=== PATIENT | female | born 1945 | race Caucasian/White ===

== ENCOUNTER → 2018-04-21 08:07 | Outpatient (CLI) | payer MEDICARE, OTHER, SELFPAY ==
--- NOTE | 2018-04-21 08:33 | BI_ITS ---
MAMMOGRAPHY - BILATERAL SCREENING REASON FOR EXAM: Female, 72 years old. Routine annual screening examination. PERTINENT HISTORY: Non-contributory. TECHNIQUE: Digital bilateral breast chad (3D mammographic acquisition) in the CC and MLO projections. 2-D mediolateral oblique (MLO) and craniocaudad (CC) views of both breasts were obtained. CAD: Full Field Digital Mammography with Computer Added Detection was performed. COMPARISON: Comparison is made with prior study dated November 01, 2016 and October 25, 2015. FINDINGS: Breast Composition: There are scattered areas of fibroglandular density. There are no dominant masses or suspicious calcifications. Stable 8 mm x 7 mm well-defined nodule in the mid lateral portion of the left breast. No other significant abnormalities are identified. There has been no significant change since the prior study. BI/SCREENING MAMM (CAD), BILAT IMPRESSION: Stable bilateral screening mammogram. Yearly follow-up mammogram recommended. (A) ASSESSMENT CATEGORY: BIRADS Category 2: Benign. A letter regarding these results will be sent to the patient by the facility within 30 days. Approximately 10% of breast cancers are not detected by mammography. A normal mammogram should not delay biopsy of a clinically suspicious abnormality. [id number] Electronically Signed: Ru Ge MD at 10:07 EDT Tel [phone], Service support ,
== END ==
PROVIDERS: Family Provider Internal Medicine; PCP Internal Medicine; Visit Provider Internal Medicine
DX: Z12.31 Encounter for screening mammogram for malignant neoplasm of breast (principal)
CPT/HCPCS: 77063; 77067

== ENCOUNTER → 2019-08-18 11:48 | Outpatient (CLI) | payer MEDICARE, OTHER, SELFPAY ==
--- NOTE | 2019-08-18 11:51 | BI_ITS ---
MAMMOGRAPHY - BILATERAL SCREENING REASON FOR EXAM: Female, 73 years old. Routine annual screening examination. PERTINENT HISTORY: Non-contributory. TECHNIQUE: Digital bilateral breast kika (3D mammographic acquisition) in the CC and MLO projections. 2-D mediolateral oblique (MLO) and craniocaudad (CC) views of both breasts were obtained. CAD: Full Field Digital Mammography with Computer Added Detection was performed. COMPARISON: Comparison is made with prior study dated April 21, 2018 and November 01, 2016. FINDINGS: Breast Composition: There are scattered areas of fibroglandular density. There are no dominant masses or suspicious calcifications. Stable 8 mm x 7 mm well-defined nodule in the upper lateral portion of the left breast. Stable benign-appearing bilateral axillary lymph nodes. No other significant abnormalities are identified. There has been no significant change since the prior study. BI/SCREEN MAMM (CAD) W/KIKA BILAT IMPRESSION: Stable bilateral screening mammogram. Yearly follow-up mammogram recommended. (A) ASSESSMENT CATEGORY: BIRADS Category 2: Benign. A letter regarding these results will be sent to the patient by the facility within 30 days. Approximately 10% of breast cancers are not detected by mammography. A normal mammogram should not delay biopsy of a clinically suspicious abnormality. [id number] Electronically Signed: Ru Ge, at 13:15 EST , Service support ,
--- NOTE | 2019-08-18 12:11 | BD_ITS ---
STUDY: DUAL ENERGY X-RAY ABSORPTIOMETRY / DXA REASON FOR EXAM: Female, 73 years old. 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 COMPARISON: Comparison is made with prior study dated November 01, 2016. FINDINGS: Lumbar Spine (L1-L4): g/cm2 (1.042) / T-score (-1.3) / Z-score (0.4) Findings are suggestive of osteopenia with a low fracture risk. Left Femur Total: g/cm2 (0.923) / T-score (-0.7) / Z-score (0.9) Left Femoral Neck: g/cm2 (0.941) / T-score (-0.7) / Z-score (1.1) Right Femur Total: g/cm2 (0.977) / T-score (-0.2) / Z-score (1.3) Right Femoral Neck: g/cm2 (0.904) / T-score (-1.0) / Z-score (0.8) The T-Scores on the most recent prior examination were: Lumbar Spine (L1-L4): There has been worsening of bone density since the previous examination. Left Femur Total: which represents a worsening of 5.1%. Right Femur Total: which represents a worsening of 3.9%. BD/Dexa Bone Density Study IMPRESSION: The patient is considered osteopenic as outlined below according to World Hunter Organization (WHO) criteria with a low fracture risk. There has been worsening of bone density since the previous examination. Reference Information: The T-score is the number of standard deviations above or below the standard which is normal for young adults at their peak bone mineral density. The World Health Organization (WHO) interprets the T-scores as follows: Above -1 Normal bone density Between -1 and -2.5 Osteopenia Equal to / or below -2.5 Osteoporosis As a practical clinical guideline, osteopenia may be graded as follows: Mild -1 through -1.5 Moderate -1.6 through -2.0 Severe -2.1 through -2.4 The Z-score is the number of standard deviations above or below age-matched controls. A Z-score of less than -1.5 would be considered abnormal. References: 1. NIH Osteoporosis and Related Bone Diseases http://www.osteo.org 2. International Society for Clinical Densitometry http://www.iscd.org 3. National Osteoporosis Foundation http://www.nof.org Electronically Signed: Ru Ge, at 15:35 EST , Service support ,
== END ==
PROVIDERS: Family Provider Internal Medicine; PCP Internal Medicine; Referring Provider Internal Medicine; Visit Provider Internal Medicine
DX: Z12.31 Encounter for screening mammogram for malignant neoplasm of breast (principal); Z78.0 Asymptomatic menopausal state
CPT/HCPCS: 77063; 77067; 77080

== ENCOUNTER → 2021-01-10 07:56 | Outpatient (CLI) | payer MEDICARE, OTHER, SELFPAY ==
--- NOTE | 2021-01-10 08:00 | BI_ITS ---
MAMMOGRAPHY - BILATERAL SCREENING REASON FOR EXAM: Female, 75 years old. Routine annual screening examination. PERTINENT HISTORY: Non-contributory. TECHNIQUE: Digital bilateral breast kika (3D mammographic acquisition) in the CC and MLO projections. 2-D mediolateral oblique (MLO) and craniocaudad (CC) views of both breasts were obtained. CAD: Full Field Digital Mammography with Computer Added Detection was performed. COMPARISON: Comparison is made with prior study dated 02/16/2020 and 04/21/2018. FINDINGS: Breast Composition: There are scattered areas of fibroglandular density. There are no dominant masses or suspicious calcifications. On the mediolateral oblique view, there is a 8.7 mm nodular density which is not seen on the craniocaudad view. The patient will be recalled for additional views of the left breast including 90 degree lateral and possible compression spot views. Stable appearance of the bilateral axillary lymph nodes. No other significant abnormalities are identified. BI/SCRN MAMM (CAD)W/KIKA BILAT IMPRESSION: 8.7 mm nodular density seen in the central portion of the left breast on the mediolateral oblique views. The patient will be recalled for additional views including 90 degree lateral and possible compression spot views. Recall Side: Left Breast ASSESSMENT CATEGORY: BIRADS Category 0: Incomplete. Need additional imaging evaluation. A letter regarding these results will be sent to the patient by the facility within 30 days. Approximately 10% of breast cancers are not detected by mammography. A normal mammogram should not delay biopsy of a clinically suspicious abnormality. [id number] Electronically Signed: Ru Ge MD at 8:47 EDT , Service support ,
== END ==
PROVIDERS: PCP Internal Medicine; Referring Provider Internal Medicine; Visit Provider Internal Medicine
DX: Z12.31 Encounter for screening mammogram for malignant neoplasm of breast (principal)
CPT/HCPCS: 77063; 77067

== ENCOUNTER → 2021-01-11 09:17 | Outpatient (CLI) | payer MEDICARE, OTHER, SELFPAY ==
--- NOTE | 2021-01-11 09:20 | BI_ITS ---
MAMMOGRAPHY - UNILATERAL DIAGNOSTIC: LEFT BREAST REASON FOR EXAM: Female, 75 years old. Abnormal screening mammogram. PERTINENT HISTORY: Non-contributory. TECHNIQUE: A 90 degree lateral view of the left breast was obtained. CAD: Full Field Digital Mammography with Computer Added Detection was performed. COMPARISON: Comparison is made with prior study dated 01/10/2021. FINDINGS: Breast Composition: There are scattered areas of fibroglandular density. Persistent 9.2 mm nodule in the mid deep retroareolar region of the breast. Correlation with ultrasound is recommended. No other significant abnormalities are identified. BI/DIAG MAMM W/CAD, UNILAT IMPRESSION: Persistent density in the mid to deep aspect of the left breast as described. Correlation with ultrasound is recommended. ASSESSMENT CATEGORY: BIRADS Category 0: Incomplete. Need additional imaging evaluation. A letter regarding these results will be sent to the patient by the facility within 30 days. Approximately 10% of breast cancers are not detected by mammography. A normal mammogram should not delay biopsy of a clinically suspicious abnormality. Electronically Signed: Ru Ge MD at 10:05 EDT , Service support ,
--- NOTE | 2021-01-11 09:33 | US_ITS ---
STUDY: ULTRASOUND BREAST - LEFT REASON FOR EXAM: Female, 75 years old. Abnormal screening mammogram. TECHNIQUE: Axial and longitudinal images of the LEFT breast were performed with a high resolution ultrasound transducer. # OF IMAGES: 12 COMPARISON: Comparison is made with prior mammogram dated 01/11/2021 and 01/10/2021. Comparison is also made with the prior sonogram of the breast dated 08/18/2014. FINDINGS: LEFT Breast: There is an 8 mm x 6 mm x 3 mm well-defined hypoechoic nodule with central echogenic hilum in keeping with a small lymph node. This is seen at the 5 o''clock position breast at 3 cm from the. This is unchanged. US/Breast Limited Unilateral IMPRESSION: Stable examination demonstrating a 8 mm x 6 mm x 3 mm benign appearing lymph node. Routine mammographic follow-up is recommended. ASSESSMENT CATEGORY: BIRADS Category 2: Benign. A letter regarding these results will be sent to the patient by the facility within 30 days. Electronically Signed: Ru Ge MD at 10:08 EDT , Service support ,
== END ==
PROVIDERS: PCP Internal Medicine; Referring Provider Internal Medicine; Visit Provider Internal Medicine
DX: R92.8 Other abnormal and inconclusive findings on diagnostic imaging of breast (principal)
CPT/HCPCS: 76642; 77065

== ENCOUNTER → 2022-04-04 | Outpatient (CLI) | payer MEDICARE, OTHER, SELFPAY ==
--- NOTE | 2022-04-04 13:08 | RAD_ITS ---
STUDY: XR Knee Complete 4 Views or More 04/04/2022 4:52 PM REASON FOR EXAM: Female, 76 years old. PAIN TECHNIQUE: XR Knee Complete 4 Views or More LEFT COMPARISON: None FINDINGS: Normal visualized distal femur. Normal visualized proximal tibia and fibula. Normal proximal tibiofibular articulation. There is moderate degenerative arthrosis of the medial femorotibial compartment with moderate joint space narrowing. Normal lateral femorotibial compartment. There is mild degenerative arthrosis of the patellofemoral articulation. The soft tissue structures are unremarkable. RAD/Knee 4 or More Views IMPRESSION: Degenerative arthrosis. Electronically Signed: Dudley Paul MD at 16:53 EDT ,
--- NOTE | 2022-04-04 13:10 | RAD_ITS ---
STUDY: XR Knee Complete 4 Views or More 04/04/2022 4:49 PM REASON FOR EXAM: Female, 76 years old. PAIN TECHNIQUE: XR Knee Complete 4 Views or More RIGHT COMPARISON: None FINDINGS: Normal visualized distal femur. Normal visualized proximal tibia and fibula. Normal proximal tibiofibular articulation. There is moderate degenerative arthrosis of the medial femorotibial compartment with moderate joint space narrowing. There is mild degenerative arthrosis of the lateral femorotibial compartment. There is mild degenerative arthrosis of the patellofemoral articulation. There is a soft tissue prominence in the suprapatellar region suggesting a small volume joint effusion. The soft tissue structures are unremarkable. RAD/Knee 4 or More Views IMPRESSION: Degenerative arthrosis.Effusion, as described above. Electronically Signed: Dudley Paul MD at 16:50 EDT ,
== END | disposition home or self-care (01) ==
PROVIDERS: PCP Internal Medicine; Referring Provider Internal Medicine; Visit Provider Internal Medicine
DX: M25.561 Pain in right knee (principal); M25.562 Pain in left knee
CPT/HCPCS: 73564

== ENCOUNTER → 2022-06-13 | Outpatient (CLI) | payer MEDICARE, OTHER, SELFPAY ==
--- NOTE | 2022-06-13 10:58 | BI_ITS ---
MAMMOGRAPHY - BILATERAL SCREENING REASON FOR EXAM: Female, 76 years old. Routine annual screening examination. PERTINENT HISTORY: Non-contributory. TECHNIQUE: Digital bilateral breast kika (3D mammographic acquisition) in the CC and MLO projections. 2-D mediolateral oblique (MLO) and craniocaudad (CC) views of both breasts were obtained. CAD: Full Field Digital Mammography with Computer Added Detection was performed. COMPARISON: Comparison is made with prior study dated 01/10/2021 and 08/18/2019. FINDINGS: Breast Composition: There are scattered areas of fibroglandular density. There are no dominant masses or suspicious calcifications. Stable 9.2 mm well-defined nodule with a central fatty notch in the retroareolar region of the left breast. Prior sonogram demonstrated this to be a benign-appearing lymph node. Stable benign appearing lymph nodes are seen in the axillary regions. No other significant abnormalities are identified. There has been no significant change since the prior study. BI/SCRN MAMM (CAD)W/KIKA BILAT IMPRESSION: Stable bilateral screening mammogram. Yearly follow-up mammogram recommended. (A) ASSESSMENT CATEGORY: BIRADS Category 2: Benign. A letter regarding these results will be sent to the patient by the facility within 30 days. Approximately 10% of breast cancers are not detected by mammography. A normal mammogram should not delay biopsy of a clinically suspicious abnormality. [id number] Electronically Signed: Ru Ge MD at 12:23 EST ,
--- NOTE | 2022-06-13 11:03 | BD_ITS ---
STUDY: DUAL ENERGY X-RAY ABSORPTIOMETRY / DXA REASON FOR EXAM: Female, 76 years old. [id number] TECHNIQUE: Bone Mineral Density (BMD) measurements of lumbar spine and bilateral hips were obtained. COMPARISON: Comparison is made with prior study dated 08/18/2019. FINDINGS: Lumbar Spine (L1-L4): g/cm2 (0.924) / T-score (-1.1) / Z-score (1.2) Findings are suggestive of osteopenia with a low fracture risk. Left Femur Total: g/cm2 (0.908) / T-score (-0.3) / Z-score (1.5) Left Femoral Neck: g/cm2 (0.774) / T-score (-0.7) / Z-score (1.4) Right Femur Total: g/cm2 (0.935) / T-score (-0.1) / Z-score (1.7) Right Femoral Neck: g/cm2 (0.798) / T-score (-0.5) / Z-score (1.6) The T-Scores on the most recent prior examination were: Lumbar Spine (L1-L4): There has been improvement of bone density since the previous examination. Left Femur Total: which represents an improvement of 5.7%. Right Femur Total: which represents an improvement of 2.5%. BD/Dexa Bone Density Study IMPRESSION: The patient is considered osteopenic as outlined below according to World Hunter Organization (WHO) criteria with a low fracture risk. There has been improvement of bone density since the previous examination. Reference Information: The T-score is the number of standard deviations above or below the standard which is normal for young adults at their peak bone mineral density. The World Health Organization (WHO) interprets the T-scores as follows: Above -1 Normal bone density Between -1 and -2.5 Osteopenia Equal to / or below -2.5 Osteoporosis As a practical clinical guideline, osteopenia may be graded as follows: Mild -1 through -1.5 Moderate -1.6 through -2.0 Severe -2.1 through -2.4 The Z-score is the number of standard deviations above or below age-matched controls. A Z-score of less than -1.5 would be considered abnormal. References: 1. NIH Osteoporosis and Related Bone Diseases www osteo.org 2. International Society for Clinical Densitometry www iscd.org 3. National Osteoporosis Foundation www nof.org Electronically Signed: Ru Ge MD at 8:48 EST ,
== END | disposition home or self-care (01) ==
LOC: OPBI 10:57
PROVIDERS: PCP Internal Medicine; Referring Provider Internal Medicine; Visit Provider Internal Medicine
DX: Z12.31 Encounter for screening mammogram for malignant neoplasm of breast (principal); Z78.0 Asymptomatic menopausal state
CPT/HCPCS: 77063; 77067; 77080

== ENCOUNTER → 2023-07-22 | Outpatient (CLI) | payer MEDICARE, OTHER, SELFPAY ==
--- NOTE | 2023-07-22 11:52 | BI_ITS ---
MAMMOGRAPHY - BILATERAL SCREENING REASON FOR EXAM: Female, 77 years old. Routine annual screening examination. PERTINENT HISTORY: Non-contributory. TECHNIQUE: Digital bilateral breast kika (3D mammographic acquisition) in the CC and MLO projections. 2-D mediolateral oblique (MLO) and craniocaudad (CC) views of both breasts were obtained. CAD: Full Field Digital Mammography with Computer Added Detection was performed. COMPARISON: Comparison is made with prior study dated June 13, 2022 and January 10, 2021. FINDINGS: Breast Composition: There are scattered areas of fibroglandular density. There are no dominant masses or suspicious calcifications. Stable 9.2 mm well-defined nodule with a central fatty notch in the retrocrural midportion region of the left breast. Prior sonogram demonstrated this to be a benign-appearing lymph node. Stable bilateral fat containing lymph nodes. No other significant abnormalities are identified. There has been no significant change since the prior study. BI/SCRN MAMM (CAD)W/KIKA BILAT IMPRESSION: Stable bilateral screening mammogram. Yearly follow-up mammogram recommended. (A) ASSESSMENT CATEGORY: BIRADS Category 2: Benign. A letter regarding these results will be sent to the patient by the facility within 30 days. Approximately 10% of breast cancers are not detected by mammography. A normal mammogram should not delay biopsy of a clinically suspicious abnormality. [id number] Electronically Signed: Ru Ge MD at 12:52 EST ,
== END | disposition home or self-care (01) ==
LOC: OPBI 11:51
PROVIDERS: PCP Internal Medicine; Referring Provider Internal Medicine; Visit Provider Internal Medicine
DX: Z12.31 Encounter for screening mammogram for malignant neoplasm of breast (principal)
CPT/HCPCS: 77063; 77067

== ENCOUNTER 2023-08-13 07:54 | Day surgery (SDC) | payer MEDICARE, SELFPAY ==
[2023-08-13 08:25] VITALS: BP 130/87; PULSE 94; RESP 18; TEMP 35.9; O2SAT 98; BMI 39.0
[2023-08-13] MEDS: Lactated Ringers 1,000 ML 15 ML IV (08:37)
--- NOTE | 2023-08-13 09:00 | COLBX_PTH ---
PATHOLOGY RESULTS PATIENT: RAMOS CASTELLANOS LOC: EN U#:[id number] AGE/SX: 77/F ROOM: RE08/13/[address]: Dr. Trevon Ashley MD : 1945 BED: DIS: 08/13/2023 SPEC #: [id number] RECD: 08/13/23 11:45 STATUS: DALTON GONZALEZ #: [id number] JEN: 08/13/23 09:[address]: Trevon Ashley DEPT: SURGICAL PATHOLOGY RECD BY: Yessenia Hopkins ENTERED: 08/13/23 11:46 SP TYPE: COLON BX OTHR DR: Dr. Mai Rosario DO Tissues: Rectum, NOS Procedures: Surgery Specimen Level IV HEADER OPERATION: Colonoscopy with polypectomy PRE-OP DIAGNOSIS: History of colon polyps TISSUE SUBMITTED: Rectal polyp MICROSCOPIC DIAGNOSIS Rectal polyp, polypectomy: Tubular adenoma. SJ:josué 08/14/2023 MICROSCOPIC DESCRIPTION Slides are reviewed. GROSS DESCRIPTION Received in fixative is one container labeled with the patient's name and designated rectal polyp. The specimen consists of one matthew-pink polyp measuring 0.7 x 0.3 x 0.1 cm. The specimen is totally submitted in one cassette. / SJ:josué 08/13/2023 TC:1 CPT: 91107
--- NOTE | 2023-08-13 09:02 | HP.PCM_ITS ---
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 Is patient in pain?: No Allergies Penicillins Adverse Reaction (Mild, Verified 06/06/23 13:25) PT UNSURE OF REACTION Medications calcium carb-vit D3-minerals 600 mg calcium-400 unit tablet 1 tab PO BID 06/06/23 [History Confirmed 06/06/23] cholecalciferol (vitamin D3) 25 mcg (1,000 unit) capsule 25 mcg PO DAILY 06/06/23 [History Confirmed 06/06/23] fish oil-dha-epa 1,200 mg-144 mg-216 mg capsule cap PO 06/06/23 [History Confirmed 06/06/23] ibandronate 150 mg tablet 150 mg PO 06/06/23 [History Confirmed 06/06/23] metoprolol succinate 50 mg tablet,extended release 24 hr 50 mg PO 06/06/23 [History Confirmed 06/06/23] paroxetine HCl 10 mg tablet 10 mg PO 06/06/23 [History Confirmed 06/06/23] pravastatin 80 mg tablet 80 mg PO 06/06/23 [History Confirmed 06/06/23] PFSH Medical History (Updated 06/07/23 @ 08:[address] Trevon Ashley MD) Depression High cholesterol HTN (hypertension) Surgical History (Updated 06/06/23 @ 13:23 by Rafia Quintana) S/P hysterectomy S/P tonsillectomy Family History (Updated 06/06/23 @ 13:23 by Rafia Quintana) Mother DiabetesBrother Cancer skinFather Ulcer Social History (Updated 06/06/23 @ 13:24 by Rafia Quintana) Smoking Status: Former smoker alcohol intake: current HPI HPI HPI: Patient is a 77-year-old female here for surveillance colonoscopy. She had her last colonoscopy 6 years ago and a polyp was removed and she was recommended to repeat in 5. She denies any abdominal pain or blood in the stool. ROS General General: No weight change, appetite, fatigue, colon cancer, breast cancer or weakness HEENT HEENT: No difficulty swallowing, eye injury, eye surgery, swollen glands or hoarseness Endo Endocrine: No thyroid disease, diabetes mellitus, thyroid cancer, Hair loss, heat intolerance or cold intolerance Skin Skin: No rash or changing moles Breast Breast: No left breast lump, right breast lump, nipple discharge, breast pain, abnormal mammogram, abnormal US or breast enlargement Musc Musculoskeletal: Yes arthritis; No back problems, rheumatoid arthritis, gout or joint pain Cardio Cardiovascular: Yes high blood pressure; No murmur, pacemaker, heart disease, atrial fibrillation, heart attack, heart stent, palpitations, shortness of breat with exertion or chest pain Psych Psychiatric: Yes anxiety; No depression or hearing voices Resp Respiratory: No shortness of breath, No sleep apnea, No cough, No COPD, No asthma, No emphysema and No wheezing Gastro Gastrointestinal: No abdominal pain, No nausea or vomiting, No diarrhea, No constipation, No blood in stool, No acid reflux, No hemorrhoids, No ulcers, No gallbladder problem and No black,tarry stools Gera Hematologic: No blood thinners, No blood disorders, No bleeding, No anemia and No blood clots Neuro Neurologic: No system reviewed and no additional complaints, except as documented, No as per HPI, No abnormal gait, No abnormal hearing, No abnormal movements, No abnormal speech, No behavioral changes, No burning sensations, No confusion, No convulsions, No disequilibrium, No dizziness, No localized weakness, No frequent falls, No headache(s), No lack of coordination, No loss of vision, No memory loss, No numbness, No other visual disturbances, No radicular pain, No restless legs, No sensory deficit, No syncope, No tingling, No tremor(s), No weakness and No other Exam Const General: cooperative Orientation: alert and oriented x3 HENMT Head: normal to inspection Neck Neck: normal visual inspection and full ROM Chest Chest palpation & inspection: normal inspection of the chest Resp Effort & Inspection: normal respiratory effort Auscultation: clear to auscultation bilaterally Cardio Rate: regular rate Rhythm: regular rhythm GI Inspection: non-distended Palpation: soft and nontender Skin General: no rashes or lesions noted Neuro General: patient alert and patient oriented x3 Extrem General: full ROM Psych Appearance: grossly normal Mental Status: mental status grossly normal Assessment and Plan Assessment and Plan (1) History of colon polyps: Status: Acute Plan: Patient is due for surveillance colonoscopy as she had a tubular adenoma 6 years ago on colonoscopy. I explained endoscopy in detail to the patient. I explained the risks including but not limited to stroke or heart attack with anesthesia, perforation of the GI tract, bleeding, infection. I explained that any of these could necessitate further emergency surgery. The patient understands and all questions were answered sufficiently. The patient wishes to proceed with procedure. Trevon Ashley MD Pager: [facility] [address] [place] [address], [address] [place] [address] Office: I have examined the patient and the H&P has been reviewed. There are no clinical changes since date of exam.
[2023-08-13 09:35] VITALS: BP 130/87; BP 177/152; PULSE 88; RESP 16; TEMP 36.4; O2SAT 91
--- NOTE | 2023-08-13 09:36 | OP.CCLET_ITS ---
08/13/2023 Mai Rosario [address] [place] [address] Re : Colonoscopy procedure for Neela Mccarthyr Dear Dr. Rosario This procedure was performed on Sunday, August 13, 2023. My impressions and recommendations are as follows: Impressions : - One small polyp in the rectum, removed with a hot snare. Resected and retrieved. - The examination was otherwise normal on direct and retroflexion views. Recommendations : - Discharge patient to home. - Resume previous diet. - Continue present medications. - Await pathology results. - Repeat colonoscopy in 5 years for surveillance based on pathology results. My findings are described in the full procedure note, which is enclosed. If I can be of further assistance, please feel free to contact me at Doctor phone number(s): , Work: . Sincerely, Trevon Ashley MD 08/13/2023 9:36:39 AM This report has been signed electronically.
--- NOTE | 2023-08-13 09:36 | OP.COLON_ITS ---
Patient Name: Neela Harding Procedure Date: 08/13/2023 9:06 AM Date of : 1945 Age: 77 Procedure: Colonoscopy Indications: High risk colon cancer surveillance: Personal history of colonic polyps Providers: Trevon Ashley MD Medicines: Monitored Anesthesia Care Patient Profile: This is a 77 year old female. Refer to note in patient chart for documentation of history and physical. Last Colonoscopy: 5 years ago. Complications: No immediate complications. Procedure: Pre-Anesthesia Assessment: - Prior to the procedure, a History and Physical was performed, and patient medications and allergies were reviewed. The patient's tolerance of previous anesthesia was also reviewed. The risks and benefits of the procedure and the sedation options and risks were discussed with the patient. All questions were answered, and informed consent was obtained. Prior Anticoagulants: The patient has taken no anticoagulant or antiplatelet agents. After reviewing the risks and benefits, the patient was deemed in satisfactory condition to undergo the procedure. After I obtained informed consent, the scope was passed under direct vision. Throughout the procedure, the patient's blood pressure, pulse, and oxygen saturations were monitored continuously. The colonoscope was introduced through the anus and advanced to the cecum, identified by appendiceal orifice and ileocecal valve. The colonoscopy was performed without difficulty. The patient tolerated the procedure well. The quality of the bowel preparation was good. The ileocecal valve, appendiceal orifice, and rectum were photographed. Scope In: 9:21:40 AM Scope Out: 9:29:14 AM Total Procedure Duration Time 0 hours 7 minutes 34 seconds Findings: A small polyp was found in the rectum. The polyp was removed with a hot snare. Resection and retrieval were complete. The exam was otherwise without abnormality on direct and retroflexion views. Impression: - One small polyp in the rectum, removed with a hot snare. Resected and retrieved. - The examination was otherwise normal on direct and retroflexion views. Recommendation: - Discharge patient to home. - Resume previous diet. - Continue present medications. - Await pathology results. - Repeat colonoscopy in 5 years for surveillance based on pathology results. Procedure Code(s): --- Professional --- 94608, Colonoscopy, flexible; with removal of tumor(s), polyp(s), or other lesion(s) by snare technique Diagnosis Code(s): --- Professional --- Z86.010, Personal history of colonic polyps D12.8, Benign neoplasm of rectum CPT copyright 2021 [employer]. All rights reserved. The codes documented in this report are preliminary and upon railroad track inspector review may be revised to meet current compliance requirements. Trevon Ashley MD 08/13/2023 9:36:39 AM This report has been signed electronically. Number of Addenda: 0 Note Initiated On: 08/13/2023 9:06 AM
[2023-08-13 09:40] VITALS: BP 130/87; BP 98/70; PULSE 93; RESP 18; O2SAT 93
[2023-08-13 09:45] VITALS: BP 105/67; BP 130/87
[2023-08-13 09:50] VITALS: BP 130/87; BP 98/71; PULSE 97; RESP 16; TEMP 36.1; O2SAT 94
[2023-08-13 10:05] VITALS: BP 130/87
== END 2023-08-13 10:16 | disposition home or self-care (01) ==
LOC: EN 07:59 → AC 08:01
PROVIDERS: PCP Internal Medicine; Referring Provider Internal Medicine; Visit Provider Surgery
PROC: 0DJD8ZZ Inspection of Lower Intestinal Tract, Via Natural or Artificial Opening Endoscopic (ICD-10-PCS; CPT 45378; principal; 2023-08-13 08:55)
DX: Z12.11 Encounter for screening for malignant neoplasm of colon (principal); D12.8 Benign neoplasm of rectum; Z87.891 Personal history of nicotine dependence; Z86.010 Personal history of colon polyps
CPT/HCPCS: 45385; 88305; J7120; J2405

== ENCOUNTER → 2023-08-26 | Outpatient (CLI) | payer MEDICARE, SELFPAY ==
--- NOTE | 2023-08-26 18:42 | CT_ITS ---
CT LEFT LOWER EXTREMITY WITH 3-D IMAGING CLINICAL INDICATION: LEFT KNEE TECHNIQUE: Axial CT images of the LEFT lower extremity was performed without IV contrast material. Coronal and sagittal reformats were provided. RADIATION DOSAGE (If Supplied By Facility): CTDIvol = ( 18.75 ) mGy, DLP = ( 1494.92 ) mGycm COMPARISON: No relevant prior comparison study available FINDINGS: Bones: Imaging of the left hip joint was obtained. There is a moderate degree of joint space narrowing. Degenerative spurring is seen along the medial and lateral aspect of the femoral head. Imaging of the knee joint was obtained. There is a marked degree of medial joint space narrowing with degenerative spur formation along the medial femoral condyle. Moderate degree of joint space narrowing of the patellofemoral joint with posterior spurring along the inferior patella as well as anterior spurring of the distal femur. Intra-articular posterior joint mice are seen. Imaging of the ankle joint was obtained. There is evidence of a talar beak. Soft Tissues: The deep soft tissue structures are unremarkable. The superficial soft tissues are unremarkable without evidence of edema, hematoma, or foreign body. CT/Extremity Lower without Contra IMPRESSION: Marked degree of joint space narrowing involving the medial compartment of the knee joint as described. Electronically Signed: Ru Ge MD at 13:47 EST ,
== END | disposition home or self-care (01) ==
PROVIDERS: PCP Internal Medicine; Visit Provider Specialist
DX: M21.162 Varus deformity, not elsewhere classified, left knee (principal)
CPT/HCPCS: 73700

== ENCOUNTER 2023-09-04 07:06 | Observation (INO) | payer MEDICARE, SELFPAY ==
[2023-08-09 09:18] LABS: Absolute Lymphocyte Count 3.27 X10^3/uL (0.83-4.51); Absolute Neutrophil Count 4.2 X10^3/uL (2.0-7.7); Basophil% 1.2 % (0-1); Eosinophil# 0.24 X10^3/uL; Eosinophils% 2.8 % (0-5); Hematocrit 45.1 % (37-47); Hemoglobin 14.9 g/dL (12.0-15.0); Lymphocyte # 3.27 X10^3/ul (0.83-4.51); Lymphocyte % 38.4 % (19-41); Mean Corpuscular Hgb 30.9 pg (27.0-32.0); Mean Corpuscular Volume 93.6 fL (81-99); Mean Platelet Vol. 9.9 fl (6.2-12.0); Monocyte# 0.63 X10^3/uL; Monocyte% 7.4 % (0-10); NRBC Flagged by Analyzer 0 % (0-5); Neutrophil # 4.24 X10^3/uL (2.7-7.7); Neutrophil % 49.7 % (47-70); Platelet Count 262 K/mm3 (150-450); RBC Distribution Width CV 12.6 % (11.6-14.6); RBC Distribution Width SD 43.7 fl (35.1-43.9); Red Blood Count 4.82 M/mm3 (4.2-5.4); White Blood Count 8.5 K/mm3 (4.4-11.0)
[2023-08-09 09:30] LABS: Magnesium 2.2 mg/dL (1.6-2.6)
[2023-08-09 09:41] LABS: Albumin, Serum 3.9 g/dL (3.2-5.0); Anion Gap 3 (5-15); BUN 16 mg/dL (7-18); BUN/Creat Ratio 18.6 RATIO (10-20); Calcium,Total 9.5 mg/dL (8.5-10.1); Chloride 107 mmol/L (98-107); Creatinine, Serum 0.86 mg/dL (0.55-1.02); EST Glomerular Filtration Rate 68 mL/min (>60); Est Glom Filt Rate - Afr Amer 83 mL/min (>60); Glucose 109 mg/dL (74-106); Hemoglobin A1c 5.6 % (3.8-5.6); Sodium Level 140 mmol/L (136-145)
--- NOTE | 2023-08-27 19:25 | HP.PCM_ITS ---
History and Physical History and Physical? Patient Name: Neela Harding : 1945 From:? GABY BENNETT PA-C? DATE OF PRE-OPERATIVE EXAM: 08/26/2023 DATE OF SURGERY:? 09/04/2023 SCHEDULED PROCEDURE:? Left total knee arthroplasty HISTORY OF PRESENT ILLNESS: Preoperative history and physical exam was performed on August 26, 2023.? This is a 77-year-old female who is been having ongoing pain for approximately 3 years.? The pain has been progressively been getting worse.? Her pain and reach 8/10 with activities.? She has had pain in bilateral knees with the left being greater than the right.? Her pain is been constant.? It is increased with going up and down stairs.? She has start up pain.? She also complains of pain with driving and walking.? Pain is located over the posterior and medial knee.? Pain does occasionally awaken her at night.? She has difficulty with activities of daily living including bathing/showering, shopping, and leisure activities such as walking long distances.? Patient denies past history of surgery on the left knee.? She has tried conservative measures including rest, corticosteroid injection, visco supplementation injection in January 2023 with only 2 months relief, oral medications including Celebrex and Tylenol.? Despite conservative measures, patient continues to complain of bilateral knee pain.? After failing conservative measures patient would like to proceed with a left total knee arthroplasty.? We have obtain surgical clearance from the primary care provider Dr. Rosario.? Patient has medical history pertinent for type 2 diabetes mellitus, hypertension, hypercholesterolemia, skin cancer, anxiety, and vitamin D deficiency.? She denies past history of DVT or pulmonary embolism.? She denies any recent chest pain, shortness of breath, fevers chills or recent infections. REVIEW OF SYSTEMS: Review Of Systems: Constitutional: Denies change in appetite, fever and weight change. Cardiovasular: Denies chest pain, heart murmur and irregular heartbeat. Respiratory: Denies cough, pneumonia, shortness of breath, tuberculosis and wheezing. Gastrointestinal: Denies constipation, diarrhea, heartburn, nausea, rectal itching, bloody stools and vomiting. Musculoskeletal: Reports trouble walking and weakness, but denies leg swelling and pain. Skin: Denies Raynaud's, history of shingles and tattoo. Neurological: Denies ambulatory dysfunction, dizziness, numbness/tingling and tremor. Psychiatric: Reports anxiety, but denies insomnia and stress. Hematologic/Lymphatic: Denies anemia, bleeding/bruising tendency and past transfusion. Reviewed, no changes. PAST MEDICAL HISTORY: Advance Care Plan: Other Directive, LIVING WILL Effective Date: 06/10/2023 Other Directive, POA Effective Date: 06/10/2023 Past Medical History: Medical Problems: Arthritis Cancer - SKIN-BASAL CELL/TREATED Diabetes, High Blood Pressure, Hypercholesterolemia Covid- 19 - (2020) Covid-19 Vaccine, Anxiety, Vitamin D Deficiency Accidents: Fracture - (2020) LT WRIST, [facility]? Surgical Hx: Cataracts Hysterectomy - (1996) Tonsillectomy - (1955) Anesthesia Complications: None Assistive Devices: Glasses Reviewed and updated. SOCIAL HISTORY: Social History: Marital: .Occupation: Retired.Work Status: Retired.Hand Dominance: Right- handed. Personal Habits:? Cigarette Use: Former Cigarette Smoker.Smokeless Tobacco: Never Used Smokeless Tobacco.E-Cigarette Use: Never used.Alcohol: Occasionally.Drug Use: Denies Use.Enjoy Exercising: Never Exercises. Reviewed, no changes. VITALS: Ht: 61.3 Wt: 210lb Wt k.256 BMI: 39.3 BP: 130/82 Pulse: 80 Resp: 13 T: 96.8 T: 36.0C Pain Level: 4 O2SatR: 97 ALLERGIES: Penicillin - Hives Bactrim Augmentin? MEDICATIONS: Mupirocin 2 % use qtip and apply inside each nostril twice a day until the day of surgery, Celecoxib 200 mg 1 tab by mouth daily with food, Paroxetine HCL 10 mg one tab po once daily, Metoprolol Succinate ER 50 mg one tab po once daily, Pravastatin Sodium 80 mg one tab po once daily, Ibandronate Sodium 150 mg one tab po once monthly, Caltrate 600+D3 600-20 MG-mcg two tabs po once daily, Fish Oil 1200 mg 1 by mouth every day, Acetaminophen 500 mg two tabs po bid prn PRE-OP EXAM:? General appearance:NORMAL? ? ? Other: Eyes: Conjunctivae and lids: NORMAL? Pupils: ERR Ears, Nose, Mouth, and Throat: NORMAL? Other: Inspection of lips, teeth and gums: NORMAL? ?Other: Neck: Examination of neck: no masses noted. Respiratory: Assessment of respiratory effort: NORMAL? ?Other: ?Auscultation of lungs: clear to auscultation no wheezes, rhonchi or rales. Cardiovascular:? Auscultation of heart: regular rate and rhythm, no murmurs, gallops or rubs. PHYSICAL EXAMINATION: Patient does walk with an antalgic gait.? Right knee is without erythema or signs of infection.? Moderate effusion left knee.? She has tenderness to palpation along the medial joint line.? She has varus alignment which is partial correctable.? Range of motion: Lacks 15 full extension to 85 flexion left knee, right knee lacks 10 full extension to 95 flexion.? She gets crepitus with range of motion.? 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 Right knee also reveals stage IV bone on bone erosive osteoarthritis. IMPRESSION: 1.? 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 Severe right knee osteoarthritis with varus alignment 3.? Hypertension 4.? Type 2 diabetes mellitus:? A1c 5.6 5.? Hypercholesterolemia 6.? Anxiety 7.? Vitamin D deficiency 8.? History of skin cancer 9.? Obesity with BMI 39.3 PLAN: Dr. Pawel Mazariegos did discuss and review with the patient all treatment options including surgical versus nonsurgical options.? Patient does wish to proceed with the above-stated procedure.? Potential risks, benefits, and complications of the procedure were discussed in detail including but not limited to , infection, nerve and blood vessel damage, persistent pain, numbness, tingling, paresthesias, blood clot, pulmonary embolism, and requirement for possible further surgery.? The patient expressed full understanding and has no further questions for the doctor.? Patient does agree to proceed with the above-stated procedure and has signed the surgery consent form. POST-OP MEDICATION PLAN: Pain Medications: Postoperative pain regimen will be initiated by Dr. Pawel Mazariegos postoperatively.? Patient was found to be staph positive and will require doxycycline postoperatively for 2 weeks. DVT Prophylaxis:? Aspirin 81 mg twice daily for 4 weeks postoperatively.? Denies past history of DVT or pulmonary embolism This dictation was created using voice recognition software. Phonetic and/or grammatical errors may exist. ___? I have re-examined the patient.? There are no clinical changes since date of exam. ___? See progress notes for changes. ___? Dictated on admission Date: ? ? ?Time: Signature:
[2023-09-04] VITALS (15 sets, daily range): BP systolic 101–146; BP diastolic 58–91; PULSE 69–95; RESP 16–18; TEMP 36.1–36.8; O2SAT 94–100; BMI 39.5; BMI 39.6
[2023-09-04] MEDS: Lactated Ringers 1,000 ML 999 ML IV ×2 (07:02→11:44)
[2023-09-04 07:04] LABS: Bedside Glucose 90 mg/dL (74-106)
[2023-09-04] MEDS: Lactated Ringers 1,000 ML 75 ML IV (07:04)
--- NOTE | 2023-09-04 07:04 | OP.PCM_ITS ---
Report of Operation Date of Procedure: 09/04/23 Pre-Operative Diagnosis: Left knee primary osteoarthritis Post-Operative Diagnosis: Left knee primary osteoarthritis Surgery/Procedure Performed:: Left knee minimally invasive robotic assisted total knee replacement Description of Surgical Findings:: Stable knee with good patella tracking Surgeon: Pawel Mazariegos sergeant at arms: Sean Baxter Type of Anesthesia: Spinal Anesthesiologist: Adonis Castellano Special Medications: 2 g Ancef, 1 g TXA at incision, 1 g TXA closure, 10 mg Decadron, joint cocktail (5 mg Duramorph, 30 mL of 0.5% Ropivicaine, 1000 units of epinephrine, 30 mg of Toradol) Specimen's removed: Bony cuts Estimated Blood Loss (mL): 100 Fluids Replaced: 500 ml crystalloid Description of Procedure: Implants used: 1. [place] size 3 triathlon cruciate retaining distal femoral press-fit component 2. [place] size 4 press-fit tritanium tibial baseplate 3. [place] X3 11 mm CS polyethylene 4. [place] X3 32 mm asymmetric patella Brief history operative indications: 77-year-old F with history of left knee osteoarthritis with radiographic findings with loss of joint space, osteophyte formation and subchondral sclerosis. Failed conservative measures as mentioned in the H&P. Discussion of total knee arthroplasty as well as risk and benefits were discussed the patient including but not limited to blood loss, DVTs, PEs, neurovascular damage, general risk of anesthesia including loss of life, and stiffness or instability were discussed with patient. Patient demonstrated understanding and was able to sign informed consent. Procedure: On the date of procedure patient's left lower extremity was marked in the preoperative area. The patient was then taken back to the operating room where the patient was placed on the table in the supine position. All bony prominences were identified a well-padded. Anesthesia assumed control of the C-spine and airway and remained controlled throughout the remainder of the procedure. A tour niquet was placed on the left upper thigh and the leg was prepped in a sterile fashion. The surgeon then scrubbed at this time .Upon reentering the room left lower extremity was draped in a standard orthopedic fashion. A timeout was then called and everyone agreed upon the side, the site, the procedure to be performed, patient's identity and antibiotics given. Esmarch bandage was used to exsanguinate the extremity and the tourniquet was placed up to 250 mmHg with the knee in flexion. A midline skin incision was made and sharp dissection was taken down through skin subcutaneous tissue and fat. The standard medial parapatellar incision was made and the patella was subluxed laterally. An Appropriate deep MCL release was done and the fat pad was resected. Our attention was then directed to the patella. The patella was everted and a flat resection was made. The knee was then flexed up in 2 femoral pins were placed inside the incision and 2 tibial pins were placed outside the incision in the medial tibia bicortically. Once this was completed the 2 checkpoints in the femur and tibia were placed. Knee was then flexed up and the bony landmarks were registered. Once this was completed knee was taken through range of motion and manually stressed allowing us to a plan for an appropriate tibial cut. The robotic arm was brought into the field sterilely and checkpoint and saw were registered. Based on the patient's deformity the tibial cut was made in 3 degrees of varus. At this time the tensioner was then placed in the joint and ligament tension was checked at 90 degrees and full extension. Based on the patient's ligamentous tension appropriate adjustments were made to the operative plan and ligament releases were done. Once we were happy with our operative plan with balanced flexion and extension gaps our attention was directed to the femur. The robot was brought into the field sterilely and registered. Posterior condylar cuts, anterior chamfer cuts and anterior cuts were appropriately made for a size 3 femur. When these were completed the saws were switched out in the distal femoral and posterior chamfer cuts were made. Protecting the soft tissue throughout this time. A size 4 tibial base plate was selected. the knee was flexed to 90 degrees and the soft tissues and posterior osteophytes were removed from the joint. 40 cc of the periarticular injection was injected into the posterior medial corner of the joint. The appropriate trials were then placed on the femur and tibia. A trial polyethylene was trialed to ensure proper balancing and stability of the knee. The appropriate tibial internal rotation was then marked with a bovie. Our attention was then directed to the patella. The lug holes were drilled and the patella trial was placed. Patellar tracking was checked and deemed appropriate. Once we were happy lug holes were drilled for the femur and trial components were removed. the tibia was subluxed and pinned into place and the keel was p unched and drilled appropriately. Final components were verified and opened, and cement was mixed in a vacuum. [employer] Sim[employer] cement was used. The wound was copiously irrigated with normal saline. When the cement was ready the components were impacted into place starting with the tibia, femur and finally cementing the patella. The trial poly component was placed and the knee was placed in full extension. All excess cement was removed in the process. Once the cement had cured the tracking, alignment and balance were verified and a size 11 mm CS polyethylene component was placed. Once the final components were placed a 3-minute dilute Betadine lavage was performed followed by an Irrisept lavage was performed and the wound was copiously irrigated with normal saline solution and the periarticular injection was given. The wound was closed in a layer velez fashion using #1 vicryl interrupted sutures for the arthrotomy, 2-0 interrupted Vicryl suture for the subcuticular layer and tc for final skin closure. A sterile compressive dressing was then placed. The patient was then awakened from anesthesia, transferred to the [facility] and transferred to the PACU for recovery. Post op plan DVT ppx: ASA 81mg BID, thigh high compression stockings Follow up: in office in 2 weeks for wound check PT: to start POD #0 at hospital, outpatient PT should be arranged. My physician marketing assistant retail division was a vital part of this case. He was important in appropriate retraction during the case, and protection of soft tissues during bony cuts. His intimate knowledge of the case and my steps aided in safe and expedient completion of the procedure as well as appropriate position of the leg during the case. He was also vital in assisting with closure under my direct supervision. Due to the complexity of this case robotic arm was used to assist in the surgery to improve accuracy and clinical outcomes. Complications No intraoperative complications Admit VTE Documentation VTE Present on Admission: No VTE Mechan Device Prophylaxis: SCD's and Thigh High JIMBO Hose VTE Pharm Prophylaxis ordered?: Yes
[2023-09-04] MEDS: Vancomycin HCl 1,500 MG in 0.9% Normal Saline (500mL Bag) 500 ML 250 MG IV (07:05)
[2023-09-04] MEDS: Acetaminophen 500 MG Tablet 1000 MG PO ×3 (07:05→20:53)
[2023-09-04] MEDS: Magnesium 1 GM over 15 mins IV (07:05)
[2023-09-04] MEDS: Gabapentin 600 MG Tablet PO (07:06)
--- NOTE | 2023-09-04 08:45 | KNEE_PTH ---
PATHOLOGY RESULTS PATIENT: RAMOS CASTELLANOS LOC: [facility]3 U#:[id number] AGE/SX: 77/F ROOM: ID315 RE09/04/[address]: Dr. Pawel Mazariegos MD : 1945 BED: 1 DIS: 09/05/2023 SPEC #: [id number] RECD: 09/05/23 07:31 STATUS: DALTON GONZALEZ #: [id number] JEN: 09/04/23 08:[address]: Pawel Mazariegos DEPT: SURGICAL PATHOLOGY RECD BY: Yessenia Hopkins ENTERED: 09/05/23 07:32 SP TYPE: TOTAL KNEE OTHR DR: DO Dr. Shivam Treviño DO Tissues: Knee, NOS Procedures: Decalcification bone/plaque Surgery Specimen Level IV HEADER OPERATION: ERAS robotic assisted left total knee arthroplasty PRE-OP DIAGNOSIS: Severe left knee osteoarthritis with varus alignment TISSUE SUBMITTED: Left knee debrided bone and tissue MICROSCOPIC DIAGNOSIS Bone and tissue of left knee, total knee resection: Severe degenerative joint disease. Mild synovial hyperplasia. AM:josué 09/11/2023 MICROSCOPIC DESCRIPTION Slides are reviewed. GROSS DESCRIPTION Received is one container designated bone and soft tissue left knee. The specimen consists of multiple fragments of matthew-yellow bone measuring in aggregate 11.0 x 10.0 x 4.0 cm. Two detached fragments of bone are also noted measuring 1.5 and 2.4 cm in greatest dimension. The soft tissue predominantly consists of piece of fibrocartilaginous tissue measuring in aggregate 7.5 x 4.0 x 2.0 cm. A number of bony fragments contain articular surfaces consistent with tibial plateau and femoral condyle and displaying prominent osteophyte formation, eburnation and bone erosion. [employer] sections are submitted in two cassettes as follows: 1 - soft tissue, 2 - bone after decalcification. / SJ:josué 09/05/2023 TC:5 CPT: 13505, 86509
[2023-09-04] MEDS: Cefazolin 2 GM in 0.9% Normal Saline (100mL Bag) 100 ML IV (08:48)
[2023-09-04] MEDS: dexAMETHasone 10 MG/ML Vial IV (08:49)
[2023-09-04] MEDS: TXA 1000mg in NS100 100ml (IVPB at Incision) 660 MG IV (08:59)
[2023-09-04] MEDS: TXA 1000mg in NS100 100ml (IVPB at Closure) 660 MG IV (09:51)
[2023-09-04] MEDS: JPS (Morphine 10mg/ml) OPERA.SITE (09:53)
--- NOTE | 2023-09-04 11:30 | RAD_ITS ---
STUDY: X-RAY - LEFT KNEE REASON FOR EXAM: Female, 77 years old. Post op -- AP and Lateral x-ray of operative knee in PACU TECHNIQUE: 2 view(s) of the knee. COMPARISON: Comparison is made with prior study dated April 04, 2022. FINDINGS: Normal visualized distal femur. Normal visualized proximal tibia and fibula. Normal proximal tibiofibular articulation. The patient is status post total knee replacement. There is good alignment. Postoperative soft tissue changes. RAD/Knee 1 or 2 Views IMPRESSION: Status post total knee replacement. There is good alignment. Postoperative soft tissue changes. Electronically Signed: Ru Ge MD at 12:48 EST ,
[2023-09-04] MEDS: Cefazolin 1 GM/50 ML BAG IV (17:22)
[2023-09-04] MEDS: Calcium Carb/Vitamin D 1 TABLET Tablet PO (17:26)
[2023-09-04] MEDS: Aspirin 81 MG TAB.CHEW PO (17:26)
--- NOTE | 2023-09-04 18:45 | PCM.PN.HOSP ---
Reason for Visit Reason for Visit: Diagnoses Encounter for other preprocedural examination (09/04/23) Subjective Subjective Patient was seen and examined today, she underwent a total left knee replacement today by Dr. Mazariegos, hospitalist service is consulted for medical management. Patient's medical history includes essential hypertension, chronic depression, and hyperlipidemia. Patient voices no complaints at the time my examination, she has no shortness of breath or chest pain. She was up walking to the bathroom this afternoon and did not appear to have severe pain. Objective Data Objective Data Vital Signs: Vital Signs Temp Pulse Resp BP Pulse Ox O2 Del Method O2 Flow Rate 97.8 F 95 18 111/69 94 Room Air 4 09/04/23 16:55 09/04/23 16:55 09/04/23 16:55 09/04/23 16:55 09/04/23 16:55 09/04/23 16:55 09/04/23 12:00 Oxygen Flow Rate (L/min) 4 Oxygen Delivery Method Room Air Weight: 95 kg Body Mass Index (BMI) 39.5 Intake & Output: Intake and Output for Last 24 Hours 09/02/23 09/03/23 09/04/23 23:59 23:59 23:59 Intake Total 2725 / 2725 Balance 2725 / 2725 Lab / Micro Data 08/09/23 08:49 08/09/23 08:49 Labs: Laboratory Results - last 24 hr 09/04/23 06:44: POC Glucose 90 Micro: Microbiology 08/09/23 08:49 Swab (Method) Nasal Screen MRSA/MSSA - Final Radiography Diagnostic Testing: Radiology Impression Knee X-Ray 09/04/23 11:30 IMPRESSION: Status post total knee replacement. There is good alignment. Postoperative soft tissue changes. Electronically Signed: Ru Ge MD at 12:48 EST , Physical Exam Const alert, oriented x3, no apparent distress and healthy appearing General Appearance: cooperative, well kempt and well developed Orientation / Consciousness: awake, oriented to person, oriented to place and oriented to time HEENT normocephalic and moist oral mucous membranes Eyes PERRL, EOMs intact bilaterally and conjunctivae normal Neck supple, no JVD, thyroid normal and no carotid bruits General: trachea midline Resp normal respiratory effort, no retractions, no use of accessory muscles and clear to auscultation bilaterally Auscultation: Negative for rales, rhonchi or wheezes Cardio regular rate, regular rhythm, S1 normal heart sound, S2 normal heart sound, no murmurs, no rub and no gallops GI normal to inspection, nondistended, normoactive bowel sounds, soft to palpation, non-tender and non-distended Neuro oriented x3, CN's II-XII intact bilaterally, no focal motor deficits and no sensory deficits noted Sensorium / Orientation: awake, alert, oriented to person, oriented to place and oriented to time Speech: speech normal Psych affect normal Assessment & Plan Assessment/Plan (1) HTN (hypertension): PLAN: Plan 1. Essential hypertension-patient will remain on her current outpatient medications, blood pressure will be monitored #2 chronic depression-patient is on outpatient medications at this time, will be adjusted as necessary #3 hyperlipidemia-patient's on pravastatin, a statin will be continued during her hospitalization #4 osteoarthritis-status post left total knee replacement-postop day 0, PT and OT will continue to see the patient, she plans to go home at the time of discharge from the hospital Total clinical time spent by myself addressing the patient's medical issues, reviewing all of her data, and collaborating with patient's care team: 25 minutes Charges/Coding Visit Charges Inpatient E&M: [id number] [facility] L1
[2023-09-04] MEDS: PARoxetine 10 MG Tablet PO (20:52)
[2023-09-04] MEDS: Pravastatin 80 MG Tablet PO (20:53)
[2023-09-04] MEDS: Metoprolol(XL)Succ 50 MG Tablet PO (20:53)
[2023-09-04] MEDS: Senna/Docusate Sodium 1 Tablet 2 TABLET PO (20:53)
[2023-09-05 00:55] VITALS: BMI 39.6
[2023-09-05 01:11] VITALS: BP 137/76; PULSE 89; RESP 18; TEMP 36.8; O2SAT 95
[2023-09-05] MEDS: Cefazolin 1 GM/50 ML BAG IV (01:13)
[2023-09-05 05:35] VITALS: BMI 39.6
[2023-09-05 05:57] VITALS: BP 136/73; PULSE 73; RESP 16; TEMP 36.5; O2SAT 97
[2023-09-05] MEDS: Acetaminophen 500 MG Tablet 1000 MG PO (06:10)
[2023-09-05] MEDS: Aspirin 81 MG TAB.CHEW PO (07:51)
[2023-09-05] MEDS: Cholecalciferol (VIT D3) 25 MCG TABLET (1,000 UNITS) PO (07:51)
[2023-09-05] MEDS: Calcium Carb/Vitamin D 1 TABLET Tablet PO (07:51)
[2023-09-05] MEDS: Senna/Docusate Sodium 1 Tablet 2 TABLET PO (07:51)
[2023-09-05] MEDS: Famotidine 20 MG Tablet PO (07:51)
[2023-09-05] MEDS: Doxycycline 100 MG CAPSULE PO (07:51)
[2023-09-05] MEDS: Ensure Surgery 237 ML LIQUID PO (07:54)
[2023-09-05 08:11] LABS: Hematocrit 36.5 % (37-47); Hemoglobin 12.1 g/dL (12.0-15.0); Mean Corp Hgb Conc 33.2 g/dL (32-36); Mean Corpuscular Hgb 31.5 pg (27.0-32.0); Mean Corpuscular Volume 95.1 fL (81-99); Platelet Count 220 K/mm3 (150-450); RBC Distribution Width CV 12.9 % (11.6-14.6); Red Blood Count 3.84 M/mm3 (4.2-5.4); White Blood Count 14.7 K/mm3 (4.4-11.0)
[2023-09-05 08:55] LABS: Anion Gap 4 (5-15); BUN 22 mg/dL (7-18); BUN/Creat Ratio 27.9 RATIO (10-20); Chloride 110 mmol/L (98-107); Creatinine, Serum 0.79 mg/dL (0.55-1.02); EST Glomerular Filtration Rate 75 mL/min (>60); Est Glom Filt Rate - Afr Amer 91 mL/min (>60); Estimated Creatinine Clearance 63.96 ml/min; Glucose 151 mg/dL (74-106); Potassium 4.3 mmol/L (3.5-5.1); Sodium Level 137 mmol/L (136-145)
[2023-09-05 09:08] VITALS: BP 146/80; PULSE 71; RESP 16; TEMP 36.4; O2SAT 97
--- NOTE | 2023-09-05 09:54 | CASEMGMT ---
Met with?patient to complete JO form. JO form explained to patient who voiced understanding and signed form. Original form placed in pt?s chart and copy provided to?patient. Diane Ventura, Discharge Planning Asst
--- NOTE | 2023-09-05 09:59 | PCM.PN.ORT ---
Subjective Subjective The patient was sitting in bed upon examination with her present. Patient denies any chest pain, shortness of breath, dizziness, lightheadedness, nausea or vomiting, or calf pain. Pain is controlled on medications. No adverse overnight events. Patient overall is doing very well this morning. She has no significant complaints. She does wish to try to go home today. The pain is adequately controlled. We discussed her postoperative block which can give relief for up to 24 hours. Objective Data Objective Data Vital Signs: Vital Signs Temp Pulse Resp BP Pulse Ox O2 Del Method O2 Flow Rate 97.5 F L 71 16 146/80 H 97 Room Air 4 09/05/23 09:08 09/05/23 09:08 09/05/23 09:08 09/05/23 09:08 09/05/23 09:08 09/05/23 09:08 09/04/23 12:00 Oxygen Flow Rate (L/min) 4 Oxygen Delivery Method Room Air Weight: 95 kg Body Mass Index (BMI) 39.5 Intake & Output: Intake and Output for Last 24 Hours 09/03/23 09/04/23 09/05/23 23:59 23:59 23:59 Intake Total 4725 / 5325 890 / 890 Balance 4725 / 5325 890 / 890 Lab / Micro Data 09/05/23 07:43 09/05/23 07:43 Labs: Laboratory Results - last 24 hr 09/05/23 07:43: WBC 14.7 H, RBC 3.84 L, Hgb 12.1, Hct 36.5 L, MCV 95.1, MCH 31.5, MCHC 33.2, RDW Std Deviation 45.0 H, RDW Coeff of Uyen 12.9, Plt Count 220, MPV 10.0, Sodium 137, Potassium 4.3, Chloride 110 H, Carbon Dioxide 23.0, Anion Gap 4 L, BUN 22 H, Creatinine 0.79, Estim Creat Clear Calc 63.96, Est GFR (MDRD) Af Amer 91, Est GFR (MDRD) Non-Af 75, BUN/Creatinine Ratio 27.9 H, Glucose 151 H, Calcium 9.0 Micro: Microbiology 08/09/23 08:49 Swab (Method) Nasal Screen MRSA/MSSA - Final Radiography Diagnostic Testing: Radiology Impression Knee X-Ray 01/31/24 11:30 IMPRESSION: Status post total knee replacement. There is good alignment. Postoperative soft tissue changes. Electronically Signed: Ru Ge MD at 12:48 EST , Physical Exam Narrative Vital signs stable and afebrile. SCDs and JIMBO hose are in place bilaterally Patient is able to plantarflex and dorsiflex actively. Sensation is intact to light touch to saphenous, sural, superficial and deep peroneal, and tibial distribution. Dressings are clean dry and intact. Negative Homans bilaterally, negative signs and symptoms of DVT. Const alert, oriented x3 and no apparent distress Assessment & Plan Assessment/Plan (1) Status post total left knee replacement: PLAN: 1. S/P left total knee arthroplasty POD #1 2. Continue Pain Medications: Tylenol, Celebrex, oxycodone. We discussed postoperative pain control in great detail today. Patient is nervous about taking narcotic. I explained to her that to have successful outcome pain needs to be adequately controlled. She can continue with the Tylenol and Celebrex and only use the oxycodone for breakthrough pain. We also discussed her Celebrex and she is currently taking this secondary to the left knee arthritis. Upon completion of physical therapy postoperatively she was instructed that plan will be for her to get off of the Celebrex. We discussed potential long-term effects. If she does take the medication greater than 6 months she should be following up with her primary care physician for lab work. She voiced understanding agreement. 3. DVT Prophylaxis: Take 81 mg aspirin twice daily for 4 weeks postoperatively for DVT prophylaxis. Patient denies past history of DVT or pulmonary embolism 4. PT/OT: Weightbearing as tolerated with walker 5. H & H: 12./36.5, asymptomatic. Lab work has been reviewed. There were no intra operative complications. At this time no treatment is required. 6. Reactive leukocytosis: 14.7, Afebrile. Patient did receive Decadron intraoperatively. No clinical signs of infection. 7. Currently on doxycycline for 2 weeks postoperatively due to preoperative workup in which patient was found to be staph positive. I discussed with the patient potential side effects of doxycycline including sensitivity to the sunlight and increased risk of skin burn. Recommend patient take appropriate precautions. Also recommend patient to take probiotic while on the antibiotic. Patient voiced understanding agreement. 8. Encouraged Incentive Spirometry 9. Disposition: Plan will be for discharge home today as long as patient is medically stable, tolerates therapy, and pain is adequately controlled. She would like her medications E scribed to [facility] pharmacy. She has outpatient physical therapy established. She will follow-up per postoperative instructions. Upon discharge if she has any complications or concerns she has been instructed to contact our office. We also discussed the JIMBO hose which she will use 2 weeks postoperatively in which she can take off at nighttime and for showering. We would like these back on during the day. If she has any complications with the JIMBO hose she is to contact our office. I have reviewed the [place] Automated Rx Reporting System (OARRS) report for this patient for refill pattern and other prescriber involvement as part of the appropriate surveillance for the provision of acute and chronic controlled medications. The report was requested and reviewed on the date of this entry and was considered in the prescribing process. This dictation was created using voice recognition software. Phonetic and/or grammatical errors may exist.
--- NOTE | 2023-09-05 10:06 | PCM.DC ---
Discharge Instructions Diet Discharge Diet: No restrictions Activity Discharge Activity: May Not Drive (Until you can walk 100 feet with use of cane and off all narcotics) May shower in (days): 1 (Please turn dressing away from water. Okay to get wet as long as dressing is intact to skin.) Ice area for (Minutes): 20 (Every 1-2 hours while awake. Please place barrier between the skin and ice pack.) Weight Bearing Status: Weight bearing as tolerated Keep extremity elevated above heart level: Operative Extremity Dressing / Incision Call your doctor if your incision/area has: Continuous Slow Oozing, Sudden Increased Bleeding, Increased Pain/ Swelling, Increased Redness and Foul Smelling Discharge Call your doctor if you observe: Fever of 101 or Higher, Coldness, Increased Pain, Numbness or Tingling, Change in Color, Shortness of breath, Chest pain, Calf discomfort and Uncontrolled pain Remove Dressing in: 4 days (Okay to remove dressing on September 09, 2023) Additional Dressing/Incision Instructions:: Follow [facility] Post-op Instructions. Once postoperative dressing has been removed only use gentle soap and water over the incision. Do not use any ointments, Neosporin, salves, alcohol pads over the incision for 6 weeks postoperatively. Do not submerge underwater for 6 weeks postoperatively. Continue with JIMBO hose/elastic stockings for 2 weeks postoperatively. May remove at nighttime but needs to be placed back on the leg during the day. Do NOT use alcohol with narcotic pain medication. Do NOT make important decisions while taking narcotic medication. If you have problems with taking your medication (rash, itching, nausea, etc.) call the office at once. Follow Up Care Test Results: Test results from this visit will be discussed in further detail at your follow-up appointment, if applicable. Discharge Plan Admission Admit Date/Time: 09/04/23 07:06 Attending Provider: Pawel Mazariegos Primary Care Provider: Mai Rosario Consulting Providers: Shivam Garg Discharge Orders/Prescriptions Prescriptions: New celecoxib 200 mg Capsule 200 mg PO BID 30 Days Qty: 60 0RF acetaminophen 500 mg Tablet 1,000 mg PO TID 14 Days Qty: 84 0RF Rx Instructions: Do not take more than 3000 mg Tylenol in a 24-hour period. doxycycline monohydrate 100 mg Capsule 100 mg PO BID 14 Days Qty: 28 0RF aspirin 81 mg Tablet,Chewable 81 mg PO BIDCM 30 Days Qty: 0 0RF Rx Instructions: Take 81 mg aspirin twice daily for 4 weeks postoperatively for DVT prophylaxis. famotidine 20 mg Tablet 20 mg PO DAILY 30 Days Qty: 30 0RF oxycodone 5 mg Tablet 5 - 10 mg PO Q4H PRN PRN (Reason: Pain Score 4-10) 7 Days Qty: 42 0RF sennosides-docusate sodium [Stool Softener-Stimulant Laxat] 8.6-50 mg Tablet 2 tab PO BID Qty: 0 0RF Rx Instructions: Take until first bowel movement, then as needed Continued metoprolol succinate 50 mg tablet extended release 24 hr 50 mg PO DAILY pravastatin 80 mg tablet 80 mg PO DAILY ibandronate 150 mg tablet 150 mg PO QMONTH paroxetine HCl 10 mg tablet 10 mg PO DAILY fish oil-dha-epa 1,200-144-216 mg capsule 1 cap PO .MARGARET calcium carbonate-vit D3-min 600 mg calcium- 400 unit tablet 1 tab PO BID cholecalciferol (vitamin D3) 25 mcg (1,000 unit) capsule 25 mcg PO DAILY Discontinued celecoxib 200 mg capsule 200 mg PO DAILY PRN PRN (Reason: pain) Other Ambulatory Orders: 12 Lead EKG (Routine) Timeframe: 20230809 Location: None Selected Ordered By: Dr. Pawel Mazariegos Referrals / Follow Up: Mai Rosario DO [Primary Care Provider] - Physical,Therapy [Other] - 09/09/23 11:00 am Sean Baxter PA-C [Med Staff - Adv Practice Prof] - 09/19/23 1:45 pm Disposition Disposition (needs filled in before D/C Order can be placed): Home, Self Care
--- NOTE | 2023-09-05 11:12 | CASEMGMT ---
JENI TARANGO Assessment: Face to Face with pt for initial transition planning/care coordination assessment. JENI TARANGO introduced self and role at [facility], pt voices understanding and consents to assessment. Pt is A&O x4 and answers all questions appropriately at this time. Pt lying in bed in no distress with at bedside. Care providers, pharmacy, and demographics verified/updated. Admitting Dx:robotic assisted left total knee PCP:Marlene Specialists:marcia Mazariegos Pharmacy:[facility] Retail- pt states usually uses [facility] in [place] but she is aware meds were called into [facility] today. Insurance:[employer] [facility] Prescription Benefit: yes LNOK:Wilton Mccarthyr, ; Katrin Herron dtr Living Arrangements: Pt lives with in a single story home with a ramp to enter. Pt reports she was I in ADL's prior to surgery. Pt able to assist as needed at home. Pt denies concerns at home. Transportation: Pt drives self and denies concerns with transportation. Pt will transport pt until she can drive again. DME:walk in shower with built in seat, FWW, raised toilet seat HHC/SNF:Denies hx of Pt states no concerns with going home at time of dc. Pt has outpt therapy set up at [facility] to start on Saturday. Pt states no further concerns/needs. CM to follow. Advised pt to ask CM if any further question/concerns/needs arise, voices understanding. Pt Goal:Home with outpt therapy already set up Plan:Home with outpt therapy already set up
[2023-09-05] MEDS: oxyCODONE 5 MG Tablet PO (11:40)
[2023-09-05 12:03] VITALS: BP 124/73; PULSE 79; RESP 16; TEMP 36.4; O2SAT 97
--- NOTE | 2023-09-05 15:59 | CHAPLAIN ---
Type of Pastoral Visit _x__ Initial Visit ___ Follow-up Visit ___ On-call Visit ___ General Patient Visit ___ Spiritual Assessment ___ Family Conference ___ Bereavement ___ Rapid Response ___ Code Blue ___ Other (describe below) Pastoral Care Referral From _x__ Patient ___ Family ___ Nurse ___ Physician ___ Freight Traffic Consultant ___ Hair Weaver ___ Other (describe below) Sacrament/Intervention _x__ Active listening ___ Anointing ___ Scientology ___ Bereavement ___ Communion ___ Brie exploration ___ ___ Life review ___ Prayer ___ Reconciliation ___ Sacrament of Sick _x__ Supportive presence ___ Wedding ___ Other (describe below) Pastoral Comments patient had just received her lunch and is expecting to be discharged soon; spouse is with her; offer of support appreciated but pt does not have any specific needs now except to go home and start recovery;
== END 2023-09-05 14:00 | disposition home or self-care (01) ==
LOC: SDC 12:28 → MS3 12:28
PROVIDERS: Anesthesiology; Admitting Provider Specialist; PCP Internal Medicine; Referring Provider Specialist; Visit Provider Specialist
PROC: 0SRD0JZ Replacement of Left Knee Joint with Synthetic Substitute, Open Approach (ICD-10-PCS; CPT 27447; principal; 2023-09-04 08:15)
DX: M17.0 Bilateral primary osteoarthritis of knee (principal); E11.9 Type 2 diabetes mellitus without complications; E78.5 Hyperlipidemia, unspecified; E66.9 Obesity, unspecified; Z68.39 Body mass index [BMI] 39.0-39.9, adult; I10 Essential (primary) hypertension; F41.9 Anxiety disorder, unspecified; E55.9 Vitamin D deficiency, unspecified; E78.00 Pure hypercholesterolemia, unspecified; Z87.891 Personal history of nicotine dependence; F32.A Depression, unspecified; Z79.899 Other long term (current) drug therapy
CPT/HCPCS: 27447; S2900; 01402; 64447; 36415; 73560; 80048; 82040; 82962; 83036; 83735; 85025; 85027; 87077; 87081; 88305; 88311; 93005; 94668; 96361; 96365; 96366; 97162; 97166; 97530; 99221; 99252; C1776; J7040; J7120; A4216; G0378; G0463; J3475

== ENCOUNTER 2024-03-02 12:20 | Observation (INO) | payer MEDICARE, SELFPAY ==
[2024-03-02 12:21] VITALS: BP 136/85; PULSE 103; RESP 18; TEMP 35.8; O2SAT 97; BMI 39.5
--- NOTE | 2024-03-02 13:02 | EKG12_ITS ---
Test Reason : GENERAL Blood Pressure : / mmHG Vent. Rate : 084 BPM Atrial Rate : 084 BPM P-R Int : 176 ms QRS Dur : 076 ms QT Int : 382 ms P-R-T Axes : 041 -17 046 degrees QTc Int : 451 ms Normal sinus rhythm Normal ECG Confirmed by STEPHANY VELASQUEZ, CARMELA ([id number]), slot editor LENARD DURAN ([id number]) on 03/06/2024 9:53:09 AM Referred By: Confirmed By:STANLEY HAMMOND MD
[2024-03-02 13:18] LABS: Absolute Lymphocyte Count 2.79 X10^3/uL (0.83-4.51); Absolute Neutrophil Count 5.7 X10^3/uL (2.0-7.7); Basophil# 0.08 X10^3/uL; Basophil% 0.8 % (0-1); Eosinophil# 0.11 X10^3/uL; Eosinophils% 1.2 % (0-5); Hematocrit 39.6 % (37-47); Hemoglobin 13.2 g/dL (12.0-15.0); Lymphocyte # 2.79 X10^3/ul (0.83-4.51); Lymphocyte % 29.2 % (19-41); Mean Corp Hgb Conc 33.3 g/dL (32-36); Mean Corpuscular Hgb 30.2 pg (27.0-32.0); Mean Corpuscular Volume 90.6 fL (81-99); Mean Platelet Vol. 9.6 fl (6.2-12.0); Monocyte# 0.86 X10^3/uL; NRBC Flagged by Analyzer 0 % (0-5); Neutrophil # 5.68 X10^3/uL (2.7-7.7); Neutrophil % 59.4 % (47-70); Platelet Count 260 K/mm3 (150-450); RBC Distribution Width CV 13.2 % (11.6-14.6); Red Blood Count 4.37 M/mm3 (4.2-5.4); White Blood Count 9.6 K/mm3 (4.4-11.0)
[2024-03-02 14:20] VITALS: BP 133/78; PULSE 85; RESP 16; TEMP 36.8; O2SAT 98
--- NOTE | 2024-03-02 14:49 | HP.PCM_ITS ---
HPI - General HPI Narrative RAMOS CASTELLANOS, is a 78 F who presents [facility] Medical History Wears glasses Anxiety Cancer Arthritis Low iron Restless legs Gastric reflux Heartburn Former smoker Leg cramps HTN (hypertension) Depression High cholesterol Home Medications ?Medication ?Instructions ?Recorded ?Last Taken ?Type calcium carb-vit D3-minerals 600 1 tab PO BID 06/06/23 09/03/23 History mg calcium-400 unit tablet cholecalciferol (vitamin D3) 25 25 mcg PO DAILY 06/06/23 09/03/23 History mcg (1,000 unit) capsule fish oil-dha-epa 1,200 mg-144 1 cap PO .MARGARET 06/06/23 Unknown History mg-216 mg capsule ibandronate 150 mg tablet 150 mg PO QMONTH 06/06/23 09/03/23 History metoprolol succinate 50 mg 50 mg PO DAILY 06/06/23 09/03/23 History tablet,extended release 24 hr paroxetine HCl 10 mg tablet 10 mg PO DAILY 06/06/23 09/03/23 History pravastatin 80 mg tablet 80 mg PO DAILY 06/06/23 09/03/23 History acetaminophen 500 mg tablet 1,000 mg (2 x 500 mg) PO TID 14 09/05/23 Unknown Rx days #84 tabs meloxicam 7.5 mg tablet 7.5 mg PO BID 03/02/24 Unknown History Allergy/AdvReac Type Severity Reaction Status Date / Time Penicillins AdvReac Mild PT UNSURE Verified 03/02/24 12:22 OF REACTION Family History (Updated 06/06/23 @ 13:23 by Rafia Quintana) Mother Diabetes Brother Cancer skin Father Ulcer Surgical History S/P tonsillectomy S/P hysterectomy Social History (Updated 06/06/23 @ 13:24 by Rafia Quintana) Smoking Status: Former smoker alcohol intake: current Vital Signs Vital Signs Vital Signs: 03/02/24 12:21 03/02/24 14:20 Temperature 96.5 F L 98.2 F Temperature Source Temporal Pulse Rate 103 H 85 Respiratory Rate 18 16 Blood Pressure 136/85 H 133/78 H Blood Pressure Mean 102 96 Pulse Ox 97 98 Oxygen Delivery Method Room Air Weight Weight: 209 lb 6.4 oz Body Mass Index (BMI) 39.5 Results Lab / Micro Data 03/02/24 13:10 Labs: Laboratory Results - last 24 hr 03/02/24 13:10: WBC 9.6, RBC 4.37, Hgb 13.2, Hct 39.6, MCV 90.6, MCH 30.2, MCHC 33.3, RDW Std Deviation 44.0 H, RDW Coeff of Uyen 13.2, Plt Count 260, MPV 9.6, Immature Gran % (Auto) 0.400, Neut % (Auto) 59.4, Lymph % (Auto) 29.2, [place] % (Auto) 9.0, Eos % (Auto) 1.2, Baso % (Auto) 0.8, Absolute Neuts (auto) 5.7, Absolute Lymphs (auto) 2.79, Nucleated RBC % 0
--- NOTE | 2024-03-02 14:49 | PCM.HP.STD ---
HPI - General General Date of Admission: 03/02/24 Date of Service: 03/02/24 HPI Narrative RAMOS CASTELLANOS, is a 78 F who presents to [facility] with complaints of abdominal pain that began approximately 1 week ago. She states that the pain began with a excruciating intensity and seemed more localized to her back. She declined to be evaluated at that time, however, because she had wanted to go to her grandsons wedding this weekend. She notes that her symptoms were tolerable during these festivities but she does admit to minimal appetite. She shares that her pain has become more localized to the right upper quadrant and has been associated with other symptoms of bloating and nausea but she has had no vomiting. She also denies any weight loss. She states that the intensity flared again last evening and she almost came to the ER but instead went to her PCP where she was seen by Mrs. Chela Samuel, [place]. Right upper quadrant ultrasound was ordered and she is found to have gallbladder wall thickening as well as some mild pericholecystic fluid. Upon radiology reading these findings she was referred to the ER. In the ER patient's CBC is within normal limits and there is no evidence of left shift. Liver function testing was obtained and shows no derangement of her values there. Patient denies any recent discomfort of her abdomen, however, she does note that approximately 40 years ago she had what was termed a gallbladder attack. She shares that at that time she met with surgery and asked them pointedly whether or not they would recommend proceeding with gallbladder removal and she was told that she should not if she was busy. She states that she had 4 children at home and decided that she was too busy to address it at that time. Patient has past medical history inclusive of abdominal hysterectomy, remotely. [facility] Medical History Wears glasses Anxiety Cancer Arthritis Low iron Restless legs Gastric reflux Heartburn Former smoker Leg cramps HTN (hypertension) Depression High cholesterol Home Medications ?Medication ?Instructions ?Recorded ?Last Taken ?Type calcium carb-vit D3-minerals 600 1 tab PO BID 06/06/23 09/03/23 History mg calcium-400 unit tablet cholecalciferol (vitamin D3) 25 25 mcg PO .hs bone 06/06/23 09/03/23 History mcg (1,000 unit) capsule fish oil-dha-epa 1,200 mg-144 1 cap PO .MARGARET helath 06/06/23 Unknown History mg-216 mg capsule ibandronate 150 mg tablet 150 mg PO QMONTH bone health 06/06/23 09/03/23 History metoprolol succinate 50 mg 50 mg PO .hs bp 06/06/23 09/03/23 History tablet,extended release 24 hr paroxetine HCl 10 mg tablet 10 mg PO .hs de 06/06/23 09/03/23 History pravastatin 80 mg tablet 80 mg PO .hs chol 06/06/23 09/03/23 History acetaminophen 500 mg tablet 1,000 mg (2 x 500 mg) PO TID 14 09/05/23 Unknown Rx days #84 tabs meloxicam 7.5 mg tablet 7.5 mg PO BID bone pain 03/02/24 Unknown History Allergy/AdvReac Type Severity Reaction Status Date / Time Penicillins AdvReac Mild PT UNSURE Verified 03/02/24 12:22 OF REACTION Family History (Updated 06/06/23 @ 13:23 by Rafia Quintana) Mother Diabetes Brother Cancer skin Father Ulcer Surgical History S/P tonsillectomy S/P hysterectomy Social History (Updated 06/06/23 @ 13:24 by Rafia Quintana) Smoking Status: Former smoker alcohol intake: current ROS Gastrointestinal Gastrointestinal: Reports abdominal pain, diarrhea and nausea; Denies constipation or vomiting Vital Signs Vital Signs Vital Signs: 03/02/24 12:21 03/02/24 14:20 Temperature 96.5 F L 98.2 F Temperature Source Temporal Pulse Rate 103 H 85 Respiratory Rate 18 16 Blood Pressure 136/85 H 133/78 H Blood Pressure Mean 102 96 Pulse Ox 97 98 Oxygen Delivery Method Room Air Weight Weight: 209 lb 6.4 oz Body Mass Index (BMI) 39.5 Physical Exam Const alert, oriented x3, no apparent distress and well nourished General Appearance: cooperative and well developed Resp normal respiratory effort GI GI Narrative: Obese, lower Pfannenstiel scar well-healed, no visible herniation, soft, nondistended, tender to palpation of the right upper quadrant?negative Stallworth sign Results Lab / Micro Data 03/02/24 13:10 Labs: Laboratory Results - last 24 hr 03/02/24 13:10: WBC 9.6, RBC 4.37, Hgb 13.2, Hct 39.6, MCV 90.6, MCH 30.2, MCHC 33.3, RDW Std Deviation 44.0 H, RDW Coeff of Uyen 13.2, Plt Count 260, MPV 9.6, Immature Gran % (Auto) 0.400, Neut % (Auto) 59.4, Lymph % (Auto) 29.2, Clarke % (Auto) 9.0, Eos % (Auto) 1.2, Baso % (Auto) 0.8, Absolute Neuts (auto) 5.7, Absolute Lymphs (auto) 2.79, Nucleated RBC % 0 Assessment & Plan Assessment/Plan (1) Cholecystitis with cholelithiasis: PLAN: Patient is a 78-year-old female, with notable past medical history for hypertension, obesity, and hyperlipidemia who presents with signs and symptoms of cholecystitis. She notes that symptoms began approximately 1 week ago. It is interesting to hear that her symptoms appear to have spontaneously improved around the time of a major family function but then returned in intensity and last evening. It is also noted that patient has normal white blood cell count without left shift. This suggests that she could have a chronic element to her presentation. On the other hand the presence of pericholecystic fluid remains more consistent with an acute presentation. Either way, based on patient's present discomfort and imaging I have recommended proceeding with laparoscopic cholecystectomy with intraoperative cholangiography. This procedure was described in detail as well as the postprocedure recovery expectations. Both patient and her had opportunity ask questions. We will plan to admit to inpatient with IV antibiotics. Patient will be permitted a diet until n.p.o. at midnight. Guille Burrell MD General Surgery Endocrine Surgery Pager: [facility] [address] [place] [address], [facility], [address] [place] [address] Office: [phone] Charges/Coding Visit Charges Inpatient E&M: 14849 Init Hosp L2
--- NOTE | 2024-03-02 15:10 | EDS_ITS ---
HPI History of Present Illness Chief Complaint: Abd Pain Narrative Narrative: Patient is a 78-year-old female with a past medical history of hypertension, depression, hypercholesterolemia who presented to the emergency department with a chief complaint of abdominal pain. Patient states that for the past week she has had abdominal pain that has been progressively worsening she states that she followed up with her primary care physician today in the outpatient setting who ordered blood work and had a ultrasound performed. States that after the ultrasound was completed they sent her immediately here to the emergency department for further evaluation management. Patient states that her abdominal pain is a 8 out of 10 currently. Patient denies any recent sick contacts. [facility] Medical History Wears glasses Anxiety Cancer Arthritis Low iron Restless legs Gastric reflux Heartburn Former smoker Leg cramps HTN (hypertension) Depression High cholesterol Home Medications ?Medication ?Instructions ?Recorded ?Last Taken ?Type calcium carb-vit D3-minerals 600 1 tab PO BID 06/06/23 09/03/23 History mg calcium-400 unit tablet cholecalciferol (vitamin D3) 25 25 mcg PO DAILY 06/06/23 09/03/23 History mcg (1,000 unit) capsule fish oil-dha-epa 1,200 mg-144 1 cap PO .MARGARET 06/06/23 Unknown History mg-216 mg capsule ibandronate 150 mg tablet 150 mg PO QMONTH 06/06/23 09/03/23 History metoprolol succinate 50 mg 50 mg PO DAILY 06/06/23 09/03/23 History tablet,extended release 24 hr paroxetine HCl 10 mg tablet 10 mg PO DAILY 06/06/23 09/03/23 History pravastatin 80 mg tablet 80 mg PO DAILY 06/06/23 09/03/23 History acetaminophen 500 mg tablet 1,000 mg (2 x 500 mg) PO TID 14 09/05/23 Unknown Rx days #84 tabs meloxicam 7.5 mg tablet 7.5 mg PO BID 03/02/24 Unknown History Allergy/AdvReac Type Severity Reaction Status Date / Time Penicillins AdvReac Mild PT UNSURE Verified 03/02/24 12:22 OF REACTION Family History (Updated 06/06/23 @ 13:23 by Rafia Quintana) Mother Diabetes Brother Cancer skin Father Ulcer Surgical History S/P tonsillectomy S/P hysterectomy Social History (Updated 06/06/23 @ 13:24 by Rafia Quintana) Smoking Status: Former smoker alcohol intake: current ROS ROS ED ROS Narrative Constitutional: Denies any fevers, chills, headaches, lightheadedness, dizziness Cardiovascular: Denies chest pain or palpitations Respiratory: Denies cough wheezing shortness of breath Abdomen: Complains of abdominal pain as noted above denies vomiting or diarrhea : Denies any urinary symptoms Neurological: Denies numbness, weakness, tingling Musculoskeletal: Denies back pain Skin: Denies rashes or lesions EXAM Physical Exam Narrative Exam Narrative: General: Patient was lying in bed resting comfortably did not appear to be in acute distress Head: Atraumatic, cephalic Eyes: PERRL bilaterally, EOMI bilaterally, no conjunctival injection noted Neck: Soft, supple, trachea midline Cardiovascular: Regular in rhythm no murmurs gallops rubs are noted Respiratory: Clear to auscultation bilaterally no rales rhonchi or wheezes noted Abdomen: Soft, nondistended, tender to palpation in the right upper quadrant bowel sounds present for Neurological: Patient following commands knew that she was at [facility] the year is 2023 Skin: Warm, dry, intact Const Vital Signs: 03/02/24 12:21 03/02/24 14:20 Temperature 96.5 F L 98.2 F Temperature Source Temporal Pulse Rate 103 H 85 Respiratory Rate 18 16 Blood Pressure 136/85 H 133/78 H Blood Pressure Mean 102 96 Pulse Ox 97 98 Oxygen Delivery Method Room Air MDM MDM MDM Narrative Medical decision making narrative: Patient is a 78-year-old female who presented to the emerged part with chief complaint of abdominal pain that been progressively worsening. Patient was made NPO. She has not ate anything since yesterday evening. She was sent here after her right upper quadrant ultrasound. Patient's CBC reviewed and showed no evidence of leukocytosis white blood count normal 9.6, hemoglobin is 13.2, platelet count normal at 260. Patient's CMP reviewed from earlier showed a normal sodium 138, potassium normal 4.7, creatinine normal at 0.87. Patient's AST and ALT were 12 and 20 respectively with a normal total bilirubin of 0.50. Patient lipase normal at 34. Patient's ultrasound reviewed and showed multiple gallstones and sludge within the gallbladder lumen. Small amount of pericholecystic fluid. Gallbladder wall is thickened measuring 4.5 mm. I did discuss the case with general surgeon Dr. Burrell who came down and evaluated the patient and states admit the patient to his service. Patient was notified with all question concerns answered. Lab Data Labs: Laboratory Results - last 24 hr 03/02/24 13:10 WBC 9.6 RBC 4.37 Hgb 13.2 Hct 39.6 MCV 90.6 MCH 30.2 MCHC 33.3 RDW Std Deviation 44.0 H RDW Coeff of Uyen 13.2 Plt Count 260 MPV 9.6 Immature Gran % (Auto) 0.400 Neut % (Auto) 59.4 Lymph % (Auto) 29.2 [place] % (Auto) 9.0 Eos % (Auto) 1.2 Baso % (Auto) 0.8 Absolute Neuts (auto) 5.7 Absolute Lymphs (auto) 2.79 Nucleated RBC % 0 Discharge Plan Triage Chief Complaint: Abd Pain ED Provider: Noman Dai Dx/Rx/DC Orders Primary Care Provider: Mai Rosario
[2024-03-02 15:20] VITALS: BMI 39.5
[2024-03-02 15:46] VITALS: BP 153/88; PULSE 98; RESP 18; TEMP 36.7; O2SAT 98
[2024-03-02] MEDS: 0.9% Normal Saline (1000mL) 1,000 ML 125 ML IV ×2 (15:49→23:06)
[2024-03-02 20:57] VITALS: BP 133/80; PULSE 95; RESP 16; TEMP 37.2; O2SAT 95
[2024-03-02 21:04] VITALS: BMI 39.5
[2024-03-02] MEDS: Cefepime HCl 2 GM in 0.9% Normal Saline (100mL MB+) 100 ML IV (21:18)
[2024-03-02 21:19] VITALS: PULSE 95
[2024-03-02] MEDS: Metoprolol Tartrate 50 MG Tablet PO (21:19)
[2024-03-02] MEDS: MELATONIN 3 MG TABLET PO (23:05)
[2024-03-02] MEDS: Acetaminophen 500 MG Tablet PO (23:05)
[2024-03-03] VITALS (18 sets, daily range): BP systolic 107–154; BP diastolic 61–87; PULSE 69–93; RESP 16–18; TEMP 36.1–36.9; O2SAT 87–99; BMI 39.5
[2024-03-03] MEDS: 0.9% Normal Saline (1000mL) 1,000 ML 125 ML IV ×2 (05:57→18:36)
[2024-03-03 06:44] LABS: Absolute Neutrophil Count 3.8 X10^3/uL (2.0-7.7); Basophil# 0.08 X10^3/uL; Eosinophil# 0.25 X10^3/uL; Eosinophils% 3.1 % (0-5); Hematocrit 37.7 % (37-47); Hemoglobin 12.2 g/dL (12.0-15.0); Lymphocyte % 39.5 % (19-41); Mean Corp Hgb Conc 32.4 g/dL (32-36); Mean Corpuscular Hgb 30.1 pg (27.0-32.0); Mean Corpuscular Volume 93.1 fL (81-99); Monocyte# 0.79 X10^3/uL; Monocyte% 9.8 % (0-10); NRBC Flagged by Analyzer 0 % (0-5); Neutrophil # 3.75 X10^3/uL (2.7-7.7); Neutrophil % 46.2 % (47-70); Platelet Count 246 K/mm3 (150-450); RBC Distribution Width CV 13.3 % (11.6-14.6); RBC Distribution Width SD 45.8 fl (35.1-43.9); Red Blood Count 4.05 M/mm3 (4.2-5.4); White Blood Count 8.1 K/mm3 (4.4-11.0)
[2024-03-03 07:44] LABS: ALB/GLOB Ratio 0.7 RATIO (0.9-2.4); AST(SGOT) 12 U/L (15-37); Alanine Aminotransfer ALT/SGPT 17 U/L (13-56); Albumin, Serum 2.9 g/dL (3.2-5.0); Alkaline Phosphatase 46 U/L (45-117); Anion Gap 7 (5-15); BUN 12 mg/dL (7-18); Chloride 108 mmol/L (98-107); Creatinine, Serum 0.75 mg/dL (0.55-1.02); EST Glomerular Filtration Rate 80 mL/min (>60); Est Glom Filt Rate - Afr Amer 96 mL/min (>60); Estimated Creatinine Clearance 62.97 ml/min; Glucose 101 mg/dL (74-106); Potassium 4.1 mmol/L (3.5-5.1); Protein, Total 6.9 g/dL (6.4-8.2); Sodium Level 141 mmol/L (136-145)
[2024-03-03] MEDS: Pantoprazole Sodium 40 MG in 0.9% Normal Saline (100mL MB+) 100 ML 330 MG IV (09:40)
[2024-03-03] MEDS: Metoprolol Tartrate 50 MG Tablet PO ×2 (09:57→22:56)
--- NOTE | 2024-03-03 10:03 | PCM.PN.SRG ---
Subjective Subjective Patient was evaluated resting comfortably in bed. She denies any abdominal pain/discomfort. Objective Data Objective Data Vital Signs: Vital Signs Temp Pulse Resp BP Pulse Ox O2 Del Method 98.4 F 78 16 130/78 H 98 Room Air 03/03/24 09:43 03/03/24 09:57 03/03/24 09:43 03/03/24 09:57 03/03/24 09:43 03/03/24 09:43 Oxygen Delivery Method Room Air Weight: 209 lb 6.673 oz Body Mass Index (BMI) 39.5 Intake & Output: Intake and Output for Last 24 Hours 03/01/24 03/02/24 03/03/24 23:59 23:59 23:59 Intake Total 1782.92 / 1782.92 856.25 / 856.25 Balance 1782.92 / 1782.92 856.25 / 856.25 Lab / Micro Data 03/03/24 05:31 03/03/24 05:31 Labs: Laboratory Results - last 24 hr 03/02/24 13:10: WBC 9.6, RBC 4.37, Hgb 13.2, Hct 39.6, MCV 90.6, MCH 30.2, MCHC 33.3, RDW Std Deviation 44.0 H, RDW Coeff of Uyen 13.2, Plt Count 260, MPV 9.6, Immature Gran % (Auto) 0.400, Neut % (Auto) 59.4, Lymph % (Auto) 29.2, Starke % (Auto) 9.0, Eos % (Auto) 1.2, Baso % (Auto) 0.8, Absolute Neuts (auto) 5.7, Absolute Lymphs (auto) 2.79, Nucleated RBC % 0 03/03/24 05:31: WBC 8.1, RBC 4.05 L, Hgb 12.2, Hct 37.7, MCV 93.1, MCH 30.1, MCHC 32.4, RDW Std Deviation 45.8 H, RDW Coeff of Uyen 13.3, Plt Count 246, MPV 10.0, Immature Gran % (Auto) 0.400, Neut % (Auto) 46.2 L, Lymph % (Auto) 39.5, Starke % (Auto) 9.8, Eos % (Auto) 3.1, Baso % (Auto) 1.0, Absolute Neuts (auto) 3.8, Absolute Lymphs (auto) 3.20, Nucleated RBC % 0, Sodium 141, Potassium 4.1, Chloride 108 H, Carbon Dioxide 26.0, Anion Gap 7, BUN 12, Creatinine 0.75, Estim Creat Clear Calc 62.97, Est GFR (MDRD) Af Amer 96, Est GFR (MDRD) Non-Af 80, BUN/Creatinine Ratio 16.0, Glucose 101, Calcium 9.0, Total Bilirubin 0.30, AST 12 L, ALT 17, Alkaline Phosphatase 46, Total Protein 6.9, Albumin 2.9 L, Globulin 4.0, Albumin/Globulin Ratio 0.7 L Physical Exam GI normal to inspection, nondistended, normoactive bowel sounds and non-tender Assessment & Plan Assessment/Plan (1) Cholecystitis with cholelithiasis: QUALIFIERS: Cholelithiasis location: gallbladder Cholecystitis acuity: acute Biliary obstruction: without biliary obstruction Qualified Code(s): K80.00 - Calculus of gallbladder with acute cholecystitis without obstruction PLAN: I am following this patient in conjunction with Dr. Burrell. He has independently evaluated this patient. Plan to proceed later this afternoon with a laparoscopic cholecystectomy with intraoperative cholangiogram with Dr. Burrell. Patient has had the opportunity to ask and have questions answered. Patient verbally understands and agrees with the plan. Charges/Coding Visit Charges Inpatient E&M: 04862 Subs Hosp L1 (no charge)
[2024-03-03] MEDS: Cefepime HCl 2 GM in 0.9% Normal Saline (100mL MB+) 100 ML IV ×2 (10:21→22:56)
--- NOTE | 2024-03-03 11:11 | CASEMGMT ---
JENI TARANGO Assessment Face to Face with patient for initial transition planning/care coordination assessment. JENI TARANGO introduced self and role at [facility], pt voices understanding. Pt is A&Ox4 and is resting comfortably in bed and is calm. Care providers, pharmacy, and demographics verified. Admitting dx: Cholecystitis PCP: Marlene Specialists: Indra (Gen Surgeon) Preferred Pharmacy: [facility] Insurance: [employer] Prescription Benefit: Yes LNOK: Wilton Mccarthyr (H), Katrin Herron (Daughter) Living Arrangements: Pt lives with her in a single story home with a ramp to enter ADLs/IADLs: States ind and that her can help as needed Transportation: Self, , Denies concerns DME: Walk in shower with seat. Raised TS. Pt denies further uses or needs HHC/SNF: Denies history or needs. Reports Hx of OP Tx through [facility] Pt?s goal: Home Plan: Home no needs pending surgery. Pt is scheduled for surgery today around 1430. Current 6-click is 21. Pt states that she anticipates not requiring additional needs or therapy once she is medically ready for DC. At this time, the pt denies the need for HHC, OP Tx, or SNF. CM to follow. Ruben Jackson RN, CM
[2024-03-03] MEDS: Lactated Ringers 1,000 ML 15 ML IV (13:42)
--- NOTE | 2024-03-03 13:56 | PCM.PRE.AN2 ---
ASA Classification* ASA Classification ASA Classification: 2 Assessment & Plan Anesthesia* Anesthesia Assessment Anesthesia Assessment: Discussed sedation and/or anesthesia options, risks, benefits, and alternatives with patient/parents/legal guardian/POA. Questions invited. The patient/parents/legal guardian/POA seems to understand and agrees to proceed with anesthesia plan. Reviewed the physical assessment, medical history, allergy history and patient home medications list prior to surgery/procedure/anesthetic and documented any changes. Performed airway and anesthesia risk assessments. Anesthesia Type Anesthesia Type: General History Source History Obtained from:: Patient and Chart Anesthesia Focused Assessment* Temperature: 98.2 F Pulse Rate: 77 Blood Pressure: 154/87 Respiratory Rate: 18 Pulse Ox: 97 Oxygen Delivery Method: Room Air Airway Assessment Mouth opens: >3 cm Mallampati Score: III Teeth Condition: Caps/Crowns (She has multiple caps all tight. ) Neck Range of motion (ROM): Full ROM Pertinent Findings EKG Pertinent Findings:: March 02, 2024. This is colonoscopy normal sinus rhythm. Focused Labs Anesthesia Preop lab: CBC WBC 8.1 K/mm3 (4.4-11.0) 03/03/24 05:31 RBC 4.05 M/mm3 (4.2-5.4) L 03/03/24 05:31 Hgb 12.2 g/dL (12.0-15.0) 03/03/24 05:31 Hct 37.7 % (37-47) 03/03/24 05:31 Plt Count 246 K/mm3 (150-450) 03/03/24 05:31 CHEMISTRY Potassium 4.1 mmol/L (3.5-5.1) 03/03/24 05:31 Sodium 141 mmol/L (136-145) 03/03/24 05:31 Magnesium 2.2 mg/dL (1.6-2.6) 08/09/23 08:49 BUN 12 mg/dL (7-18) 03/03/24 05:31 Creatinine 0.75 mg/dL (0.55-1.02) 03/03/24 05:31 Glucose 101 mg/dL (74-106) 03/03/24 05:31 POC Glucose 90 mg/dL (74-106) 09/04/23 06:44 COAG Pre-Assessment Diagnosis/Proposed Procedure Planned Operative Procedure(s): Laparoscopic cholecystectomy with intraoperative cholangiogram n.p.o. 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 When Was Last Pacemaker Check QUESTION #4 FULL TEXT: You/Your Family Experience fever (hyperthermia) with Anesthesia Last Oral Intake Last Oral intake: Last Oral Intake NPO since 09:59 03/03/24 12:10 Meds taken in AM with sips of Yes 03/03/24 12:10 water? Meds patient instructed to lopressor 03/03/24 12:10 take am of surgery PONV PONV - office administration instructor: PONV - office administration instructor Female HX of Motion Sickness HX of N/V After Surgery Non-Smoker Duration of Surgery greater than 60 minutes Number of Risk Factors PONV Score Height & Weight Height & Weight: Anesthesia: Height & Weight Height 5 ft 1.02 in 03/03/24 13:27 Weight: 94.99 kg 03/03/24 13:27 Body Mass Index (BMI) 39.5 03/03/24 12:10 Respiratory Assessment Respiratory Assessment - office administration instructor: Respiratory Tract Infection Hx - office administration instructor Hx Respiratory Tract Infection No 03/02/24 21:04 STOP Sleep Apnea STOP Sleep Apnea - office administration instructor: STOP Sleep Apnea - office administration instructor Hx Hypertension Yes 03/02/24 15:20 Hx Sleep Apnea Yes 03/02/24 15:20 CPAP No 03/02/24 15:20 BIPAP No 03/02/24 15:20 Do you snore loudly (louder than talking or can be heard Do you often feel tired/ fatigued/ sleepy during daytime? Has anyone observed you stop breathing during sleep? STOP Results Positive 03/02/24 15:20 QUESTION #5 FULL TEXT : Do you snore loudly (louder than talking or can be heard through closed doors)? 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 Specify any problems Hx of Preganancy in last 3 N/A 03/02/24 15:20 Months Nurse Filling Out Transfusion LDOTTERER 03/02/24 15:20 & Questions: Date: 03/02/24 03/02/24 15:20 Time: 16:10 03/02/24 15:20 Patient unable to answer at this time (ie. confused, unrespo /Reproduction History /Reproductive History - office administration instructor: /Reproductive Hx- office administration instructor Hx Now No 03/02/24 21:04 Gestational Age (in weeks): EDC: Hx Hx Para Hx Section SAB Active Medications Active Medications: Current Medications Generic Name Dose Route Start Last Admin Trade Name Freq PRN Reason Stop Dose Admin Acetaminophen 500 mg 03/02/24 14:49 03/02/24 23:05 Acetaminophen 500 Mg Tablet PO 500 mg Q6H PRN PRN Administration Pain Score 1-10 Hydromorphone HCl 0.5 mg 03/02/24 14:49 Hydromorphone 0.5 Mg/0.5 Ml Syringe IV Q4H PRN PRN Pain Score 6-10 Sodium Chloride 1,000 mls @ 125 mls/hr 03/02/24 14:50 03/03/24 13:40 IV Infused .Q8H TRI Infusion Pantoprazole Sodium 40 mg/ 110 mls @ 330 mls/hr 03/03/24 10:00 03/03/24 10:00 Sodium Chloride IV Infused Q24 TRI Infusion Cefepime HCl 2 gm/ Sodium 100 mls @ 200 mls/hr 03/02/24 22:00 03/03/24 10:51 Chloride IV Infused Q12 TRI Infusion Lactated Ringer's 1,000 mls @ 15 mls/hr 03/03/24 13:45 03/03/24 13:42 IV 15 mls/hr .Q48H TRI Administration Melatonin 3 mg 03/02/24 22:35 03/02/24 23:05 Melatonin 3 Mg Tablet PO 3 mg QHS TRI Administration Metoprolol Tartrate 50 mg 03/02/24 22:00 03/03/24 09:57 Metoprolol Tartrate 50 Mg Tablet PO 50 mg BID TRI Administration Protocol Ondansetron HCl 4 mg 03/02/24 14:49 Ondansetron 4 Mg/2 Ml Vial IV Q6H PRN PRN NAUSEA/VOMITING Sodium Chloride 10 - 40 ml 03/02/24 15:32 0.9% Saline Lock 10 Ml Syringe IV UD PRN SALINE FLUSH PFSH Medical History Wears glasses Anxiety Cancer Arthritis Low iron Restless legs Gastric reflux Heartburn Former smoker Leg cramps HTN (hypertension) Depression High cholesterol Home Medications ?Medication ?Instructions ?Recorded ?Last Taken ?Type calcium carb-vit D3-minerals 600 1 tab PO BID 06/06/23 09/03/23 History mg calcium-400 unit tablet cholecalciferol (vitamin D3) 25 25 mcg PO .hs bone 06/06/23 09/03/23 History mcg (1,000 unit) capsule fish oil-dha-epa 1,200 mg-144 1 cap PO .MARGARET helath 06/06/23 Unknown History mg-216 mg capsule ibandronate 150 mg tablet 150 mg PO QMONTH bone health 06/06/23 09/03/23 History metoprolol succinate 50 mg 50 mg PO .hs bp 06/06/23 03/03/24 History tablet,extended release 24 hr paroxetine HCl 10 mg tablet 10 mg PO .hs de 06/06/23 09/03/23 History pravastatin 80 mg tablet 80 mg PO .hs chol 11/02/23 01/30/24 History acetaminophen 500 mg tablet 1,000 mg (2 x 500 mg) PO TID 14 09/05/23 Unknown Rx days #84 tabs meloxicam 7.5 mg tablet 7.5 mg PO BID bone pain 03/02/24 Unknown History Allergy/AdvReac Type Severity Reaction Status Date / Time Penicillins AdvReac Mild Hives Verified 03/03/24 06:47 Family History Mother Diabetes Brother Cancer skin Father Ulcer Surgical History S/P tonsillectomy S/P hysterectomy Social History Smoking Status: Former smoker alcohol intake: current Review of Systems (Anesthesia) ROS Narrative System reviewed and no additional complaints, except as documented.
--- NOTE | 2024-03-03 14:30 | GALL_PTH ---
PATIENT: RAMOS CASTELLANOS LOC: MS3 U#:[id number] AGE/SX: 78/F ROOM: [facility] [place] RE03/02/[address]: Dr. Guille Burrell MD : 1945 BED: 1 DIS: 03/05/2024 SPEC #: [id number] RECD: 03/03/24 18:26 STATUS: DALTON REAlissa #: [id number] JEN: 03/03/24 14:[address]: Guille Burrell DEPT: SURGICAL PATHOLOGY RECD BY: Juliette Mcghee ENTERED: 03/04/24 08:13 SP TYPE: SCARLETT PEREYRA DR: Dr. Mai Rosario DO Tissues: Gallbladder, NOS Procedures: Surgery Specimen Level III HEADER OPERATION: Laparoscopic cholecystectomy with intraoperative PRE-OP DIAGNOSIS: Cholecystitis with cholelithiasis TISSUE SUBMITTED: Gallbladder MICROSCOPIC DIAGNOSIS Gallbladder, cholecystectomy: Chronic cholecystitis and cholelithiasis. AM/ 03/05/2024 MICROSCOPIC DESCRIPTION Slides are reviewed. GROSS DESCRIPTION Received is one container labeled with the patient's name and designated gallbladder. The specimen consists of a gallbladder measuring 8.0 x 4.5 x 3.5 cm. The external surface is smooth and glistening. Focally, it is granular, hemorrhagic and contains cautery artifact. The lumen of the gallbladder contains yellow-green mucoid bile and a large black calculus measuring 4.5 x 3.5 x 3.0 cm. The mucosa is bile-stained and without any mass lesions. The gallbladder wall averages 0.2 to 1.0 cm in thickness and is free of mass lesions. Elevator Adjuster sections of the gallbladder and the cystic duct at margin of resection are submitted in one cassette. / AM: 03/04/2024 TC:3 [facility]: [id number]
--- NOTE | 2024-03-03 14:34 | CHAPLAIN ---
Type of Pastoral Visit _x__ Initial Visit ___ Follow-up Visit ___ On-call Visit ___ General Patient Visit ___ Spiritual Assessment ___ Family Conference ___ Bereavement ___ Rapid Response ___ Code Blue ___ Other (describe below) Pastoral Care Referral From _x__ Patient ___ Family ___ Nurse ___ Physician ___ Automobile Washer Steam ___ Needle Molder ___ Other (describe below) Sacrament/Intervention _x__ Active listening ___ Anointing ___ Cheondoism ___ Bereavement ___ Communion _x__ Brie exploration ___ _x__ Life review _x__ Prayer ___ Reconciliation ___ Sacrament of Sick _x__ Supportive presence ___ Wedding ___ Other (describe below) Pastoral Comments patient will be having surgery this afternoon; pt and spouse remember this galvanizer zinc from a previous admission for a knee surgery; pt is very welcoming and engages in conversation about her family and a recent wedding of her grandson; pt has a adventist connection and family support; pt asks for prayer for surgery and a follow up visit when she has another knee surgery
[2024-03-03] MEDS: Cefazolin 2 GM in 0.9% Normal Saline (100mL Bag) 100 ML IV (14:42)
--- NOTE | 2024-03-03 15:10 | RAD_ITS ---
EXAM: [place] CHOLANGIOGRAPHY AND/OR PANCREATOGRAPHY CLINICAL INDICATION: TECHNIQUE: Cine fluoroscopic images of the upper abdomen obtained at the time of laparoscopic cholecystectomy with contrast injected via the cystic duct. COMPARISON: No relevant prior studies available. FINDINGS: Normal caliber biliary tree. Irregular rounded and linear filling defects are noted within the common bile duct which appear to be mobile and some of which expressed through the ampulla. There is visualization of the duodenum. See operative note for additional information. RAD/Cholangiogram/ O R,Initial IMPRESSION: As above. Electronically Signed: Jose Ramon Ballesteros MD at 16:39 EDT ,
--- NOTE | 2024-03-03 17:14 | PCM.OPRPT ---
Report of Operation Date of Procedure: 03/03/24 Pre-Operative Diagnosis: Acute cholecystitis with cholelithiasis Post-Operative Diagnosis: 1. Acute on chronic cholecystitis with cholelithiasis 2. Choledocholithiasis Surgery/Procedure Performed:: Laparoscopic cholecystectomy with intraoperative cholangiogram Description of Surgical Findings:: ? Severe inflammation of the gallbladder with an acute on chronic picture resulting in adherence to the adjacent omentum ? Normal caliber cystic duct entering obscured common bile duct ? Cholangiogram showing numerous filling defects in the common bile duct?some of which were flushed through the ampulla Surgeon: Guille Burrell Type of Anesthesia: General/Supplemental Anesthesiologist: Adonis Castellano Specimen's removed: Gallbladder Drains: 15F round sakshi Estimated Blood Loss (mL): 75 Description of Procedure: After proper identification in the preoperative holding area the patient was brought to the operating room where she was positioned supine on the operating room table. Preoperatively SCDs were placed and antibiotics were administered (2 g Ancef given the patient was receiving regular dosing of cefepime). General anesthesia was then induced. Patient's abdomen was prepped and draped in usual sterile fashion. A formal timeout was conducted to confirm both patient and the procedure. Procedure was begun with a supraumbilical incision which was extended deeply down to the level of the fascia. The fascia was elevated and incised, as well as the peritoneum. A finger sweep was performed to ensure there were no underlying adhesions and a 12 mm balloon trocar was inserted. Pneumoperitoneum was established at 15 mmHg. Three additional trocars (all 5 mm) were placed in the epigastrium and in the right upper quadrant. Inspection of the peritoneum revealed no inadvertent injury to the viscera below. The gallbladder was not immediately visualized due to significant adhesions between the fundal part of the gallbladder and the adjacent omentum. Gradually combination of blunt dissection electrocautery were used to free the anterior surface of the gallbladder which displayed evidence of severe acute on chronic inflammation. I attempted to grasp the gallbladder but it was taut with edema so the puncture tip on the suction fitness plan coordinator was attached to try to aspirate bile. With 2 successive attempts this was eventually accomplished and yet still grasping the gallbladder proved challenging given the severe thickening of the wall. The gallbladder fundus was then grasped and elevated cephalad. Then, using careful dissection the peritoneum was opened and the rind of the gallbladder was carefully peeled back from a lateral aspect. Ultimately I was able to delineate a cystic duct then sharply back towards the liver and an acute angle. More medially there is a thick rind along the interface between the presumed location of the cystic artery and the medial interface of the liver and gallbladder. At 1 point as I tried to peel back this friend I encountered bleeding from the cystic artery and it was very distally clamped just to provide enough hemostasis to facilitate more proximal dissection. I then attempted to obtain a cholangiogram with the Bolanos clamp, however, there was immediate extravasation in the gallbladder wall appeared too friable to accommodate the catheter. Therefore I moved to the cystic duct where the distal duct was clipped and partially divided as the proximal duct was milked of any debris until there was backflow of bile. A cholangiocatheter was fed into the proximal segment of the cystic duct and clipped into place. Under fluoroscopy a cholangiogram was then obtained showing a standard length cystic duct flowing into a common bile duct with partial obstruction of the flow of contrast through the ampulla Vater into the duodenum. During her cholangiogram we watched as there is some antegrade movement of these filling defects through the ampulla, however, several others were retained within the common bile duct. Notably there was also retrograde flow through the common hepatic duct into the right and left hepatic ducts. Given our partial success I asked anesthesia to administer 1 mg of glucagon and waited 5 minutes before returning to our attempted a cholangiogram. This second attempt was no more successful in clearing the duct and this part of the procedure was concluded. The cholangiocatheter was withdrawn and the proximal cystic duct was sealed with clips and the cystic duct was completely transected. I then very carefully used blunt dissection to peel back the inflammatory rind on the gallbladder until I could see the interface between the true wall of the gallbladder and the cystic plate. Then electrocautery was used to fully remove the gallbladder from the gallbladder fossa. During this process there were several inadvertent rents made in the gallbladder resulting in local spillage of bile which was promptly suctioned free of the peritoneal cavity. Selective electrocautery was used to obtain hemostasis in the gallbladder fossa. Morison's pouch was irrigated and the effluent was suctioned free of the peritoneum. Hemostasis was again confirmed on the fossa. A 15 Khmer round Sakshi drain was fed in through the right lateralmost port site and positioned at the inferior margin of the liver adjacent to gallbladder fossa. This drain was secured at the skin with 2-0 nylon suture. Pneumoperitoneum was evacuated and the gallbladder within an Endo Catch bag was removed from the peritoneum. Given the large size of the gallstone within the gallbladder the supraumbilical incision had to be roughly doubled in size to permit passage of the gallbladder out of the abdominal domain. Thus this approximately 5 cm incision was then closed with a running #1 PDS suture. A total of 30 mL of anesthetic was injected at the port sites for postoperative pain control. The skin of each port site was then closed in subcuticular fashion using 4-0 Monocryl. Steri-Strips and bandages were applied as dressings. Patient tolerated the procedure well without any apparent complications. On emergence from their anesthetic the patient was taken to PACU for ongoing recovery. Complications None Admit VTE Documentation VTE Mechan Device Prophylaxis: SCD's Procedures Digestive [id number]-49xxx: [id number] Laparo cholecystectomy/graph
[2024-03-03] MEDS: Bupiv/Epi 0.25% 30 ML Vial (17:15)
--- NOTE | 2024-03-03 17:45 | PCM.POST.ANE ---
Anesthesia: Postop Eval I Current Vital Signs Temperature: 96.9 F Pulse Rate: 80 Blood Pressure: 127/73 Respiratory Rate: 18 Pulse Ox: 94 Oxygen Delivery Method: Nasal Cannula (Oxygen is at 2 L/min.) Assessment Airway patent: Yes Spontaneous unlabored respirations: Yes Mental status: Awake and Calm nausea: No Vomiting: No Anesthesia Complication: No Fluid Hydration Crystalloid volume administer (ml): 1,900 Total IV fluid infused: 1,900 Progress Note Anesthesia document: Postop Eval 1 completed: Yes
[2024-03-03] MEDS: HYDROmorphone 0.5 MG/0.5 ML SYRINGE IV (18:53)
[2024-03-03] MEDS: Ondansetron 4 MG/2 ML Vial IV (18:57)
[2024-03-03] MEDS: Metoclopramide 10 MG/2 ML Vial IV (20:16)
[2024-03-03] MEDS: Acetaminophen 500 MG Tablet PO (20:29)
--- NOTE | 2024-03-03 22:26 | PCM.POSTANE2 ---
Anesthesia Postop Eval I Sum Postop Eval Completion status Anesthesia document: Postop Eval 1 completed: Yes Anesthesia Postop Eval I Summary Anesthesia Postop Eval I Summary: Anesthesia Postop Eval I: Assessment Summary Airway patent Yes 03/03/24 17:46 Spontaneous unlabored Yes 03/03/24 17:46 respirations Mental status Awake,Calm 03/03/24 17:46 nausea No 03/03/24 17:46 Vomiting No 03/03/24 17:46 Anesthesia Postop Eval I: Fluid Summary Crystalloid volume administer 1,900 03/03/24 17:46 (ml) Colloids volume administered ( ml) Blood Product volume administered (ml) Total IV fluid infused 1,900 03/03/24 17:46 Anesthesia Postop Eval I: Summary Notes Anesthesia Complication No 03/03/24 17:46 Anesthesia Complication Comment: Post-operative progress note Anesthesia: Postop Eval II Evaluation Mental status: Awake and Calm Pain Level: 1 nausea: No Vomiting: No Complications Anesthesia Complication: No
[2024-03-03] MEDS: MELATONIN 3 MG TABLET PO (22:56)
[2024-03-04] VITALS (18 sets, daily range): BP systolic 109–159; BP diastolic 61–99; PULSE 75–94; RESP 16–18; TEMP 36.2–37.1; O2SAT 93–99; BMI 39.5
[2024-03-04] MEDS: 0.9% Normal Saline (1000mL) 1,000 ML 125 ML IV (02:42)
[2024-03-04] MEDS: Acetaminophen 500 MG Tablet PO ×2 (02:54→09:13)
[2024-03-04 06:53] LABS: Absolute Neutrophil Count 11.1 X10^3/uL (2.0-7.7); Basophil# 0.02 X10^3/uL; Basophil% 0.1 % (0-1); Hematocrit 34.6 % (37-47); Hemoglobin 11.2 g/dL (12.0-15.0); Lymphocyte % 11.2 % (19-41); Mean Corp Hgb Conc 32.4 g/dL (32-36); Mean Corpuscular Hgb 30.2 pg (27.0-32.0); Mean Corpuscular Volume 93.3 fL (81-99); Mean Platelet Vol. 9.8 fl (6.2-12.0); Monocyte# 0.78 X10^3/uL; Monocyte% 5.8 % (0-10); NRBC Flagged by Analyzer 0 % (0-5); Neutrophil # 11.06 X10^3/uL (2.7-7.7); Neutrophil % 82.5 % (47-70); Platelet Count 269 K/mm3 (150-450); RBC Distribution Width CV 13.2 % (11.6-14.6); Red Blood Count 3.71 M/mm3 (4.2-5.4); White Blood Count 13.4 K/mm3 (4.4-11.0)
[2024-03-04 07:23] LABS: ALB/GLOB Ratio 0.7 RATIO (0.9-2.4); AST(SGOT) 44 U/L (15-37); Alanine Aminotransfer ALT/SGPT 51 U/L (13-56); Albumin, Serum 2.7 g/dL (3.2-5.0); Alkaline Phosphatase 45 U/L (45-117); Anion Gap 5 (5-15); BUN 12 mg/dL (7-18); Calcium,Total 8.3 mg/dL (8.5-10.1); Chloride 109 mmol/L (98-107); Creatinine, Serum 0.75 mg/dL (0.55-1.02); EST Glomerular Filtration Rate 80 mL/min (>60); Est Glom Filt Rate - Afr Amer 96 mL/min (>60); Estimated Creatinine Clearance 62.97 ml/min; Globulin 3.8 g/dL (2.2-4.2); Glucose 139 mg/dL (74-106); Potassium 4.4 mmol/L (3.5-5.1); Protein, Total 6.5 g/dL (6.4-8.2); Sodium Level 138 mmol/L (136-145)
--- NOTE | 2024-03-04 08:11 | PCM.PN.SRG ---
Subjective Subjective Patient seen and examined during AM rounds. She is found sitting upright in bed. She denies much abdominal discomfort and declares that her presenting complaints are now improved. She does describe mild tenderness around her right upper quadrant drain site. She apologizes for the difficulty of our operation due to waiting to present. Objective Data Objective Data Vital Signs: Vital Signs Temp Pulse Resp BP Pulse Ox O2 Del Method O2 Flow Rate 98.5 F 79 16 134/69 H 95 Room Air 2 03/04/24 06:53 03/04/24 06:53 03/04/24 06:53 03/04/24 06:53 03/04/24 06:53 03/04/24 06:53 03/04/24 02:38 Oxygen Flow Rate (L/min) 2 Oxygen Delivery Method Room Air Weight: 209 lb 6.673 oz Body Mass Index (BMI) 39.5 Intake & Output: Intake and Output for Last 24 Hours 03/02/24 03/03/24 03/04/24 23:59 23:59 23:59 Intake Total 1782.92 / 1782.92 2176.25 / 2176.25 1000 / 1000 Balance 1782.92 / 1782.92 2176.25 / 2176.25 1000 / 1000 Lab / Micro Data 03/04/24 05:48 03/04/24 05:48 Labs: Laboratory Results - last 24 hr 03/02/24 13:10: MCV 90.6, MCHC 33.3 03/04/24 05:48: WBC 13.4 H, RBC 3.71 L, Hgb 11.2 L, Hct 34.6 L, MCV 93.3, MCH 30.2, MCHC 32.4, RDW Std Deviation 45.0 H, RDW Coeff of Uyen 13.2, Plt Count 269, MPV 9.8, Immature Gran % (Auto) 0.400, Neut % (Auto) 82.5 H, Lymph % (Auto) 11.2 L, [place] % (Auto) 5.8, Eos % (Auto) 0.0, Baso % (Auto) 0.1, Absolute Neuts (auto) 11.1 H, Absolute Lymphs (auto) 1.50, Nucleated RBC % 0, Sodium 138, Potassium 4.4, Chloride 109 H, Carbon Dioxide 24.0, Anion Gap 5, BUN 12, Creatinine 0.75, Estim Creat Clear Calc 62.97, Est GFR (MDRD) Af Amer 96, Est GFR (MDRD) Non-Af 80, BUN/Creatinine Ratio 16.0, Glucose 139 H, Calcium 8.3 L, Total Bilirubin 0.30, AST 44 H, ALT 51, Alkaline Phosphatase 45, Total Protein 6.5, Albumin 2.7 L, Globulin 3.8, Albumin/Globulin Ratio 0.7 L Radiography Diagnostic Testing: Radiology Impression Cholangiogram 03/03/24 15:10 IMPRESSION: As above. Electronically Signed: Jose Ramon Ballesteros MD at 16:39 EDT , Physical Exam Const oriented x3 and no apparent distress Resp normal respiratory effort GI GI Narrative: Minimally distended, operative dressings intact with slight bloody drainage about patient's right upper quadrant drain site. There is some clot within the drain tubing which is stripped free but there is no signs of bile. Patient has minimal tenderness upon palpation. Assessment & Plan Assessment/Plan (1) Cholecystitis with cholelithiasis: QUALIFIERS: Cholelithiasis location: gallbladder Cholecystitis acuity: acute Biliary obstruction: without biliary obstruction Qualified Code(s): K80.00 - Calculus of gallbladder with acute cholecystitis without obstruction PLAN: Patient is postoperative day 1 from laparoscopic cholecystectomy with intraoperative cholangiography. Procedure was technically difficult owing to the advanced degree of inflammation seen on patient's gallbladder. Cholangiography also showed filling defects of which only half of the stone burden appeared to pass. Notably, her CMP is not reflected a biliary obstruction and this is probably due to it standing is only a partial obstruction at this point. Even still gastroenterology was consulted immediately postop and plans to evaluate patient for ERCP. As such patient is held n.p.o. past midnight anticipation of his procedure and her IV antibiotics are continued. Will follow-up patient's progress after ERCP to assess for candidacy for discharge to home. For the interval in between we will look to discontinue patient's postoperative drain as it is output is completely benign in appearance. Guille Burrell MD General Surgery Endocrine Surgery Pager: [facility] [address] [place] [address], [address] [place] [address] Office: [phone]
[2024-03-04] MEDS: Pantoprazole Sodium 40 MG in 0.9% Normal Saline (100mL MB+) 100 ML 330 MG IV (09:02)
[2024-03-04] MEDS: Metoprolol Tartrate 50 MG Tablet PO ×2 (09:02→21:11)
[2024-03-04] MEDS: Cefepime HCl 2 GM in 0.9% Normal Saline (100mL MB+) 100 ML IV ×2 (09:30→21:10)
[2024-03-04] MEDS: Lactated Ringers 1,000 ML 15 ML IV (12:01)
--- NOTE | 2024-03-04 12:42 | PRE.ANES_ITS ---
ASA Classification* ASA Classification ASA Classification: 3 Assessment & Plan Anesthesia* Anesthesia Assessment Anesthesia Assessment: Discussed sedation and/or anesthesia options, risks, benefits, and alternatives with patient/parents/legal guardian/POA. Questions invited. The patient/parents/legal guardian/POA seems to understand and agrees to proceed with anesthesia plan. Reviewed the physical assessment, medical history, allergy history and patient home medications list prior to surgery/procedure/anesthetic and documented any changes. Performed airway and anesthesia risk assessments. Anesthesia Type Anesthesia Type: General Anesthesia Focused Assessment* Temperature: 98.7 F Pulse Rate: 75 Blood Pressure: 142/62 Respiratory Rate: 16 Pulse Ox: 97 Airway Assessment Mouth opens: >3 cm Mallampati Score: II Focused Labs Anesthesia Preop lab: CBC WBC 13.4 K/mm3 (4.4-11.0) H 03/04/24 05:48 RBC 3.71 M/mm3 (4.2-5.4) L 03/04/24 05:48 Hgb 11.2 g/dL (12.0-15.0) L 03/04/24 05:48 Hct 34.6 % (37-47) L 03/04/24 05:48 Plt Count 269 K/mm3 (150-450) 03/04/24 05:48 CHEMISTRY Potassium 4.4 mmol/L (3.5-5.1) 03/04/24 05:48 Sodium 138 mmol/L (136-145) 03/04/24 05:48 Magnesium 2.2 mg/dL (1.6-2.6) 08/09/23 08:49 BUN 12 mg/dL (7-18) 03/04/24 05:48 Creatinine 0.75 mg/dL (0.55-1.02) 03/04/24 05:48 Glucose 139 mg/dL (74-106) H 03/04/24 05:48 POC Glucose 90 mg/dL (74-106) 09/04/23 06:44 COAG Pre-Assessment Diagnosis/Proposed Procedure Planned Operative Procedure(s): Laparoscopic cholecystectomy with intraoperative cholangiogram n.p.o. 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 When Was Last Pacemaker Check QUESTION #4 FULL TEXT: You/Your Family Experience fever (hyperthermia) with Anesthesia Last Oral Intake Last Oral intake: Last Oral Intake NPO since 08:51 03/04/24 08:47 Meds taken in AM with sips of Yes 03/04/24 08:47 water? Meds patient instructed to lopressor 03/04/24 08:47 take am of surgery PONV PONV - staff air defense officer: PONV - staff air defense officer Female HX of Motion Sickness HX of N/V After Surgery Non-Smoker Duration of Surgery greater than 60 minutes Number of Risk Factors PONV Score Height & Weight Height & Weight: Anesthesia: Height & Weight Height 5 ft 1.02 in 03/04/24 08:47 Weight: 94.99 kg 03/04/24 08:47 Body Mass Index (BMI) 39.5 03/04/24 08:47 Respiratory Assessment Respiratory Assessment - staff air defense officer: Respiratory Tract Infection Hx - staff air defense officer Hx Respiratory Tract Infection No 03/03/24 22:48 STOP Sleep Apnea STOP Sleep Apnea - staff air defense officer: STOP Sleep Apnea - staff air defense officer Hx Hypertension Yes 03/02/24 15:20 Hx Sleep Apnea Yes 03/03/24 18:05 CPAP No 03/02/24 15:20 BIPAP No 03/02/24 15:20 Do you snore loudly (louder than talking or can be heard Do you often feel tired/ fatigued/ sleepy during daytime? Has anyone observed you stop breathing during sleep? STOP Results Positive 03/02/24 15:20 QUESTION #5 FULL TEXT : Do you snore loudly (louder than talking or can be heard through closed doors)? Tobacco Use History Tobacco Use History - staff air defense officer: Tobacco Use History - staff air defense officer Tobacco Use Smoking Status Former smoker 03/02/24 15:20 Hx Tobacco Use No 03/02/24 15:20 Years Smoking Packs Smoked per Day Smoking Cessation Date was Yes - quit smoking within 15 03/02/24 15:20 within the last 15 years years Hx Smoking Cessation Date 08/05/19 03/02/24 15:20 Hx Smoking Cessation No 03/02/24 15:20 Counseling Hematologic Medial History Hematologic Hx - staff air defense officer: Hematologic Medical Hx - licensed funeral director Hx of Blood Transfusion Yes 03/02/24 15:20 Hx of Transfusion in last 3 No 03/02/24 15:20 Months Date of Last Transfusion (if within last 3 months) Ever experience any problems No 03/02/24 15:20 with transfusion(s)? Specify any problems Hx of Preganancy in last 3 N/A 03/02/24 15:20 Months Nurse Filling Out Transfusion LDOTTERER 03/02/24 15:20 & Questions: Date: 03/02/24 03/02/24 15:20 Time: 16:10 03/02/24 15:20 Patient unable to answer at this time (ie. confused, unrespo /Reproduction History /Reproductive History - staff air defense officer: /Reproductive Hx- staff air defense officer Hx Now No 03/03/24 22:48 Gestational Age (in weeks): EDC: Hx Hx Para Hx Section SAB No 03/03/24 22:48 Active Medications Active Medications: Current Medications Generic Name Dose Route Start Last Admin Trade Name Freq PRN Reason Stop Dose Admin Acetaminophen 500 mg 03/02/24 14:49 03/04/24 09:13 Acetaminophen 500 Mg Tablet PO 500 mg Q6H PRN PRN Administration Pain Score 1-10 Hydromorphone HCl 0.5 mg 03/02/24 14:49 03/03/24 18:53 Hydromorphone 0.5 Mg/0.5 Ml Syringe IV 0.5 mg Q4H PRN PRN Administration Pain Score 6-10 Sodium Chloride 1,000 mls @ 125 mls/hr 03/02/24 14:50 03/04/24 02:42 IV 125 mls/hr .Q8H TRI Administration Pantoprazole Sodium 40 mg/ 110 mls @ 330 mls/hr 03/03/24 10:00 03/04/24 09:22 Sodium Chloride IV Infused Q24 TRI Infusion Cefepime HCl 2 gm/ Sodium 100 mls @ 200 mls/hr 03/02/24 22:00 03/04/24 10:00 Chloride IV Infused Q12 TRI Infusion Lactated Ringer's 1,000 mls @ 15 mls/hr 03/03/24 13:45 03/04/24 12:01 IV 15 mls/hr .Q48H TRI Administration Melatonin 3 mg 03/02/24 22:35 03/03/24 22:56 Melatonin 3 Mg Tablet PO 3 mg QHS TRI Administration Metoprolol Tartrate 50 mg 03/02/24 22:00 03/04/24 09:02 Metoprolol Tartrate 50 Mg Tablet PO 50 mg BID TRI Administration Protocol Ondansetron HCl 4 mg 03/02/24 14:49 03/03/24 18:57 Ondansetron 4 Mg/2 Ml Vial IV 4 mg Q6H PRN PRN Administration NAUSEA/VOMITING Sodium Chloride 10 - 40 ml 03/02/24 15:32 0.9% Saline Lock 10 Ml Syringe IV UD PRN SALINE FLUSH PFSH Medical History Wears glasses Anxiety Cancer Arthritis Low iron Restless legs Gastric reflux Heartburn Former smoker Leg cramps HTN (hypertension) Depression High cholesterol Home Medications ?Medication ?Instructions ?Recorded ?Last Taken ?Type calcium carb-vit D3-minerals 600 1 tab PO BID 06/06/23 09/03/23 History mg calcium-400 unit tablet cholecalciferol (vitamin D3) 25 25 mcg PO .hs bone 06/06/23 09/03/23 History mcg (1,000 unit) capsule fish oil-dha-epa 1,200 mg-144 1 cap PO .MARGARET helath 06/06/23 Unknown History mg-216 mg capsule ibandronate 150 mg tablet 150 mg PO QMONTH bone health 06/06/23 09/03/23 History metoprolol succinate 50 mg 50 mg PO .hs bp 06/06/23 03/03/24 History tablet,extended release 24 hr paroxetine HCl 10 mg tablet 10 mg PO .hs de 06/06/23 09/03/23 History pravastatin 80 mg tablet 80 mg PO .hs chol 06/06/23 09/03/23 History acetaminophen 500 mg tablet 1,000 mg (2 x 500 mg) PO TID 14 09/05/23 Unknown Rx days #84 tabs meloxicam 7.5 mg tablet 7.5 mg PO BID bone pain 03/02/24 Unknown History Allergy/AdvReac Type Severity Reaction Status Date / Time Penicillins AdvReac Mild Hives Verified 03/04/24 12:00 Family History Mother Diabetes Brother Cancer skin Father Ulcer Surgical History S/P tonsillectomy S/P hysterectomy Social History Smoking Status: Former smoker alcohol intake: current Review of Systems (Anesthesia) ROS Narrative System reviewed and no additional complaints, except as documented.
--- NOTE | 2024-03-04 12:45 | FLU_PTH ---
PATIENT: RAMOS CASTELLANOS LOC: MS3 U#:[id number] AGE/SX: 78/F ROOM: [facility] [place] RE03/02/[address]: Dr. Guille Burrell MD : 1945 BED: 1 DIS: 03/05/2024 SPEC #: [id number] RECD: 03/04/24 13:57 STATUS: DALTON GONZALEZ #: [id number] JEN: 03/04/24 12:[address]: Guille Burrell DEPT: CYTOLOGY RECD BY: Dahiana Alonso ENTERED: 03/05/24 07:01 SP TYPE: Fluid OTHR DR: Dr. Mai Rosario DO Tissues: A - Bile duct, NOS B - Bile duct, NOS Procedures: Special Stain Group II Surgery Specimen Level III Surgery Specimen Level IV Cytospin Fluid HEADER OPERATION: Brushings, stent placement PRE-OP DIAGNOSIS: Cholecystitis with choleithiasis TISSUE SUBMITTED: A- [place] head, B- Biliary stricture brushings DIAGNOSIS CYTOLOGY A. [place] head fluid (cytospin and cellblock): Negative for malignant cells. B. Biliary stricture brushings (smears): Negative for malignant cells.. GARY/ 03/06/2024 COMMENT Clinical correlation and appropriate follow up are necessary. CYTOLOGY STUDY Slides are reviewed. CYTOLOGY GROSS A. Received is one brush tip with 0.5 ml of light-yellow fluid labeled with the patient's name and and designated per the requisition as [place] head. Submitted for cytology preparation including cell block. B. Received are 3 smears labeled with the patient's name and designated per the requisition as Biliary stricture brushings. Submitted for staining. Mr 03/05/2024 TC:5 CPT: 59635,13977,49261
--- NOTE | 2024-03-04 13:09 | RAD_ITS ---
STUDY: ERCP. REASON FOR EXAM: Female, 78 years old. Cholecystectomy. FLUOROSCOPY TIME (if supplied): ( 1 minute and 16 seconds. ) minutes/seconds. 56.34 mGy. 12 images were submitted. TECHNIQUE: An ERCP was performed by the block handler. Fluoroscopic imaging was provided. A biliary stent was placed. COMPARISON: None. FINDINGS: Biliary stent placement. RAD/ERCP Biliary Only IMPRESSION: Biliary stent placement. Electronically Signed: Ru Ge MD at 10:14 EDT ,
--- NOTE | 2024-03-04 13:30 | EX.PCM.CON.G ---
HPI Consult Data Date of Consult: 03/04/24 HPI Narrative Reason for Consultation: Choledocholithiasis HPI Narrative: RAMOS CASTELLANOS, is a 78-year-old female with a past medical history of hypertension, depression, hypercholesterolemia who presented to the emergency department with a chief complaint of abdominal pain. Patient states that for the past week she has had abdominal pain that has been progressively worsening she states that she followed up with her primary care physician today in the outpatient setting who ordered blood work and had a ultrasound performed. States that after the ultrasound was completed they sent her immediately here to the emergency department for further evaluation management. Patient states that her abdominal pain is a 8 out of 10 currently. Patient denies any recent sick contacts. She underwent imaging that showed acute cholecystitis with cholelithiasis. Her LFTs were within normal limits. She underwent elective cholecystectomy. During the IOC she had multiple filling defects that were seen in the common bile duct. I was consulted for therapeutic ERCP. [facility] Medical History Wears glasses Anxiety Cancer Arthritis Low iron Restless legs Gastric reflux Heartburn Former smoker Leg cramps HTN (hypertension) Depression High cholesterol Home Medications ?Medication ?Instructions ?Recorded ?Last Taken ?Type calcium carb-vit D3-minerals 600 1 tab PO BID 06/06/23 09/03/23 History mg calcium-400 unit tablet cholecalciferol (vitamin D3) 25 25 mcg PO .hs bone 06/06/23 09/03/23 History mcg (1,000 unit) capsule fish oil-dha-epa 1,200 mg-144 1 cap PO .MARGARET helath 06/06/23 Unknown History mg-216 mg capsule ibandronate 150 mg tablet 150 mg PO QMONTH bone health 06/06/23 09/03/23 History metoprolol succinate 50 mg 50 mg PO .hs bp 06/06/23 03/03/24 History tablet,extended release 24 hr paroxetine HCl 10 mg tablet 10 mg PO .hs de 06/06/23 09/03/23 History pravastatin 80 mg tablet 80 mg PO .hs chol 06/06/23 09/03/23 History meloxicam 7.5 mg tablet 7.5 mg PO BID bone pain 03/02/24 Unknown History acetaminophen 500 mg tablet 500 mg PO Q6H PRN PRN Pain Score 03/04/24 Unknown Rx 1-10 #0 tabs Allergy/AdvReac Type Severity Reaction Status Date / Time Penicillins AdvReac Mild Hives Verified 03/04/24 12:00 Family History Mother Diabetes Brother Cancer skin Father Ulcer Surgical History S/P tonsillectomy S/P hysterectomy Social History Smoking Status: Former smoker alcohol intake: current ROS Review of Systems ROS Unobtainable: other Constitutional Constitutional: Denies fatigue, fever(s), poor appetite, weight gain or weight loss ENT HEENT: Denies mouth lesions Cardiovascular Cardiovascular: Denies abdominal bloating, abdominal edema or abdominal pain Respiratory/Chest Respiratory/Chest: Denies change in mental status, change in phlegm color, chest congestion or chest tightness Gastrointestinal Gastrointestinal: Denies belching, bloating, change in bowel habits, change in stool character, chewing difficulty, coffee ground emesis, constipation, cramping, diarrhea, dyspepsia, dysphagia, early satiety, excessive flatus, fecal incontinence, heartburn, hematemesis, hematochezia, hemorrhoids, loose stools, melena, nausea, odynophagia, rectal bleeding, tenesmus, vomiting or weight changes Genitourinary Genitourinary: Denies abdominal discomfort, burning urination or itching Musculoskeletal Musculoskeletal: Reports as per HPI; Denies muscle weakness or myalgias Integumentary Integumentary: Denies jaundice Neurologic Neurologic: Denies lack of coordination or weakness Psychiatric Psychiatric: Denies confusion, depression, memory loss, mood swings, paranoia or suicidal ideation Endocrine Endocrinology: Denies systems reviewed and no addt'l complaints, except as documented Hematologic/Lymphatic Hematologic/Lymphatic: Denies anemia, easy bleeding, easy bruising or lymphadenopathy Allergic/Immunologic Allergic/Immunologic: Denies systems reviewed and no addt'l complaints, except as documented Physical Exam Const alert, oriented x3, no apparent distress, healthy appearing and well nourished General Appearance: cooperative, comfortable, well kempt and well developed Orientation / Consciousness: awake and oriented to person HEENT Head and Scalp: normocephalic and atraumatic Face and Sinus: normal facial exam Mouth: oral and palatal mucosa normal Eyes General Eye: normal appearance of both eyes Neck full ROM Lymph Lymphatic: no lymphadenopathy noted Chest inspection of chest normal Resp normal respiratory effort and no use of accessory muscles Cardio regular rate and regular rhythm GI normal to inspection, nondistended, normoactive bowel sounds, soft to palpation, non-tender, non-distended and no masses Auscultation: normoactive bowel sounds Palpation: soft Percussion: normal to percussion Rectal Exam: visual inspection normal and normal sphincter tone no CVA tenderness Back/Spine no CVA tenderness and normal ROM Extremity normal to inspection Peripheral Pulses: Yes pulses 2+ throughout Skin no rashes or lesions noted General Skin Exam: no breakdown, elasticity normal and turgor normal Neuro oriented x3 Motor Exam: strength 5/5 throughout Psych mental status grossly normal Appearance: grossly normal Attitude: calm Activity / Motor Behavior: appropriate eye contact Speech: normal speech Thought Process: normal thought process Thought Content: normal thought content Attention / Concentration: attention grossly intact Memory / Cognition: memory grossly intact Insight: insight good Judgement: judgement good Lab / Micro Data 03/04/24 05:48 03/04/24 05:48 Labs: Laboratory Results - last 24 hr 03/02/24 13:10: MCV 90.6, MCHC 33.3 03/04/24 05:48: WBC 13.4 H, RBC 3.71 L, Hgb 11.2 L, Hct 34.6 L, MCV 93.3, MCH 30.2, MCHC 32.4, RDW Std Deviation 45.0 H, RDW Coeff of Uyen 13.2, Plt Count 269, MPV 9.8, Immature Gran % (Auto) 0.400, Neut % (Auto) 82.5 H, Lymph % (Auto) 11.2 L, [place] % (Auto) 5.8, Eos % (Auto) 0.0, Baso % (Auto) 0.1, Absolute Neuts (auto) 11.1 H, Absolute Lymphs (auto) 1.50, Nucleated RBC % 0, Sodium 138, Potassium 4.4, Chloride 109 H, Carbon Dioxide 24.0, Anion Gap 5, BUN 12, Creatinine 0.75, Estim Creat Clear Calc 62.97, Est GFR (MDRD) Af Amer 96, Est GFR (MDRD) Non-Af 80, BUN/Creatinine Ratio 16.0, Glucose 139 H, Calcium 8.3 L, Total Bilirubin 0.30, AST 44 H, ALT 51, Alkaline Phosphatase 45, Total Protein 6.5, Albumin 2.7 L, Globulin 3.8, Albumin/Globulin Ratio 0.7 L Imaging Radiology Impression Cholangiogram 03/03/24 15:10 IMPRESSION: As above. Electronically Signed: Jose Ramon Ballesteros MD at 16:39 EDT , Assessment & Plan Assessment/Plan (1) Cholecystitis with cholelithiasis: QUALIFIERS: Cholelithiasis location: gallbladder Cholecystitis acuity: acute Biliary obstruction: without biliary obstruction Qualified Code(s): K80.00 - Calculus of gallbladder with acute cholecystitis without obstruction (2) Choledocholithiasis: PLAN: Plan 78-year-old status postcholecystectomy with abnormal intraoperative cholangiogram consistent with common bile duct obstruction secondary to choledocholithiasis. She will undergo ERCP with stone removal and possible stent placement. She was explained alternatives, risk, benefits including outstanding bleeding, infection, sepsis, perforation, and post ERCP pancreatitis. She will have an ASA of 3 for the procedure. Charges/Coding Visit Charges Inpatient E&M: 37329 Init Hosp L3
--- NOTE | 2024-03-04 13:39 | OP.ERCP_ITS ---
Patient Name: Neela Harding Procedure Date: 03/04/2024 12:35 PM Date of : 1945 Age: 78 Procedure: ERCP Indications: Bile duct stone(s), Elevated liver enzymes Providers: Shamir Steinberg DO Medicines: General Anesthesia, Monitored Anesthesia Care Patient Profile: This is a 78 year old female. Refer to note in patient chart for documentation of history and physical. Patient has symptoms of acute right upper quadrant abdominal pain. This patient has no history of previous ERCP. She is status post laparoscopic cholecystectomy recently. Complications: No immediate complications. Procedure: Pre-Anesthesia Assessment: - Prior to the procedure, a History and Physical was performed, and patient medications and allergies were reviewed. The patient is competent. The risks and benefits of the procedure and the sedation options and risks were discussed with the patient. All questions were answered and informed consent was obtained. Patient identification and proposed procedure were verified by the physician in the pre-procedure area. Mental Status Examination: alert and oriented. Airway Examination: normal oropharyngeal airway and neck mobility. Respiratory Examination: clear to auscultation. CV Examination: normal. Prophylactic Antibiotics: The patient does not require prophylactic antibiotics. Prior Anticoagulants: The patient has taken no anticoagulant or antiplatelet agents. After reviewing the risks and benefits, the patient was deemed in satisfactory condition to undergo the procedure. The anesthesia plan was to use general anesthesia. Immediately prior to administration of medications, the patient was re-assessed for adequacy to receive sedatives. The heart rate, respiratory rate, oxygen saturations, blood pressure, adequacy of pulmonary ventilation, and response to care were monitored throughout the procedure. The physical status of the patient was re-assessed after the procedure. After obtaining informed consent, the scope was passed under direct vision. Throughout the procedure, the patient's blood pressure, pulse, and oxygen saturations were monitored continuously. The Duodenoscope was introduced through the mouth, and advanced to the duodenum and used to inject contrast into the bile duct. The ERCP was accomplished without difficulty. The patient tolerated the procedure well. Scope In: 1:09:31 PM Scope Out: 1:28:43 PM Total Procedure Duration Time 0 hours 19 minutes 12 seconds Findings: The exhibit preparator film was normal. The esophagus was successfully intubated under direct vision. The scope was advanced to a normal major papilla in the descending duodenum without detailed examination of the pharynx, larynx and associated structures, and upper GI tract. The upper GI tract was grossly normal. The bile duct was deeply cannulated with the short-nosed traction sphincterotome. Contrast was injected. I personally interpreted the bile duct images. There was brisk flow of contrast through the ducts. Image quality was adequate. Contrast extended to the entire biliary tree. Opacification of the entire biliary tree except for the cystic duct and gallbladder was successful. The maximum diameter of the ducts was 10 mm. The lower third of the main bile duct contained one stone, which was 5 mm in diameter. The main bile duct was diffusely dilated, with a stone causing an obstruction. The largest diameter was 11mm. A straight Roadrunner wire was passed into the biliary tree. A 5 mm biliary sphincterotomy was made with a braided traction (standard) sphincterotome using ERBE electrocautery. There was no post-sphincterotomy bleeding. The biliary tree was swept with a 12 mm balloon starting at the bifurcation. Sludge was swept from the duct. All stones were removed. Dilation of the lower third of the main bile duct with a 10-11-12 mm x 5.5 cm CRE balloon (to a maximum balloon size of 12 mm) dilator was successful. The lower third of the main bile duct contained a single localized stenosis 3 mm in length. Cells for cytology were obtained by brushing in the lower third of the main bile duct. One 10 Fr by 5 cm temporary stent was placed 5 cm into the common bile duct. Bile flowed through the stent. The stent was in good position. Impression: - A single localized biliary stricture was found in the lower third of the main bile duct. The stricture was indeterminate. - The entire main bile duct was dilated, with a stone causing an obstruction. - Choledocholithiasis was found. Complete removal was accomplished by biliary sphincterotomy and balloon extraction. - A biliary sphincterotomy was performed. - The biliary tree was swept. - The lower third of the main bile duct was successfully dilated. - Cells for cytology obtained in the lower third of the main duct. - One temporary stent was placed into the common bile duct. Procedure Code(s): --- Professional --- 63098, Endoscopic retrograde cholangiopancreatography (ERCP); with placement of endoscopic stent into biliary or pancreatic duct, including pre- and post-dilation and guide wire passage, when performed, including sphincterotomy, when performed, each stent 15208, Endoscopic retrograde cholangiopancreatography (ERCP); with removal of calculi/debris from biliary/pancreatic duct(s) 33705, 26, Endoscopic catheterization of the biliary ductal system, radiological supervision and interpretation CPT copyright 2021 [employer]. All rights reserved. The codes documented in this report are preliminary and upon graduate assistant review may be revised to meet current compliance requirements. Shamir Steinberg DO 03/04/2024 1:38:18 PM This report has been signed electronically. Number of Addenda: 0 Note Initiated On: 03/04/2024 12:35 PM
--- NOTE | 2024-03-04 13:39 | OP.CCLET_ITS ---
03/04/2024 Mai Rosario [address] [facility] [place] [address] Re : ERCP procedure for Neela Lifer Dear Dr. Rosario This procedure was performed on Monday, March 04, 2024. My impressions and recommendations are as follows: Impressions : - A single localized biliary stricture was found in the lower third of the main bile duct. The stricture was indeterminate. - The entire main bile duct was dilated, with a stone causing an obstruction. - Choledocholithiasis was found. Complete removal was accomplished by biliary sphincterotomy and balloon extraction. - A biliary sphincterotomy was performed. - The biliary tree was swept. - The lower third of the main bile duct was successfully dilated. - Cells for cytology obtained in the lower third of the main duct. - One temporary stent was placed into the common bile duct. Recommendations : My findings are described in the full procedure note, which is enclosed. If I can be of further assistance, please feel free to contact me at . Sincerely, Shamir Steinberg DO 03/04/2024 1:38:18 PM This report has been signed electronically.
--- NOTE | 2024-03-04 13:49 | PCM.POST.ANE ---
Anesthesia: Postop Eval I Current Vital Signs Temperature: 97.3 F Pulse Rate: 86 Blood Pressure: 112/70 Respiratory Rate: 16 Pulse Ox: 95 Oxygen Delivery Method: Room Air Assessment Airway patent: Yes Spontaneous unlabored respirations: Yes Mental status: Asleep nausea: No Vomiting: No Anesthesia Complication: No Fluid Hydration Crystalloid volume administer (ml): 1,000 Total IV fluid infused: 1,000 Progress Note Anesthesia document: Postop Eval 1 completed: Yes
[2024-03-04] MEDS: Ondansetron 4 MG/2 ML Vial IV ×2 (14:24→18:18)
--- NOTE | 2024-03-04 15:41 | DS.PCM_ITS ---
Providers Date of Admission: 03/02/24 Primary Care Physician: Dr. Mai Rosario, DO Consultations 03/03/24 17:28 Consult: Gastroenterology Routine Consulting Provider: [facility]
--- NOTE | 2024-03-04 15:41 | PCM.DC.SUM ---
Providers Date of Admission: 03/02/24 Primary Care Physician: Dr. aMi Rosario, Consultations 03/03/24 17:28 Consult: Gastroenterology Routine Consulting Provider: [facility] Reason for Consult: Choledocholithiasis EMERGENT Consult: No MD Notified: Yes Date Notified: 03/03/24 Time Notified: 17:28 Method of Notification: Verbal Reason For Visit: CHOLECYSTITIS Diagnosis Discharge Diagnosis (1) Cholecystitis with cholelithiasis: Status: Acute Code(s): K80.10 - Calculus of gallbladder with chronic cholecystitis without obstruction Qualifiers: Biliary obstruction: without biliary obstruction Cholecystitis acuity: acute Cholelithiasis location: gallbladder Qualified Code(s): K80.00 - Calculus of gallbladder with acute cholecystitis without obstruction Plan: I am following this patient in conjunction with Dr. Burrell. He has independently evaluated this patient. Plan to proceed later this afternoon with a laparoscopic cholecystectomy with intraoperative cholangiogram with Dr. Burrell. Patient has had the opportunity to ask and have questions answered. Patient verbally understands and agrees with the plan. (2) Choledocholithiasis: Status: Acute Code(s): K80.50 - Calculus of bile duct without cholangitis or cholecystitis without obstruction Medications at Discharge Home Medications calcium carb-vit D3-minerals 600 mg calcium-400 unit tablet 1 tab PO BID 06/06/23 cholecalciferol (vitamin D3) 25 mcg (1,000 unit) capsule 25 mcg PO .hs bone 06/06/23 fish oil-dha-epa 1,200 mg-144 mg-216 mg capsule 1 cap PO .MARGARET helath 06/06/23 ibandronate 150 mg tablet 150 mg PO QMONT bone health 06/06/23 metoprolol succinate 50 mg tablet,extended release 24 hr 50 mg PO .hs bp 06/06/23 paroxetine HCl 10 mg tablet 10 mg PO .hs de 06/06/23 pravastatin 80 mg tablet 80 mg PO .hs chol 06/06/23 acetaminophen 500 mg tablet 500 mg PO Q6H PRN PRN Pain Score 1-10 #0 tabs 03/04/24 melatonin 3 mg tablet 3 mg PO QHS #0 tabs 03/04/24 Hospital Course Operations cholecystecomy and ERCP Summary of Care Provided Minutes Spent on Discharge: 25 Hospital Course: Patient is a 78 y/o F who presented with 1 week history of abdominal louis. RUQ u/s was obtained and demonstrated multiple gallstones and sludge within the gallbladder, small amount of pericholecystic fluid, thickened gallbladder wall. Normal CBD. Dr. Burrell performed laparoscopic cholecystectomy with intraoperative cholangiogram on 03/03/24. Findings included Severe inflammation of the gallbladder with an acute on chronic picture resulting in adherence to the adjacent omentum. Normal caliber cystic duct entering obscured common bile duct. Cholangiogram showing numerous filling defects in the common bile duct?some of which were flushed through the ampulla. Gastroenterology, Dr. Steinberg, performed an ERCP with stent placement, dilatation of the lower third of the main bile duct was completed and cells for cytology was obtained. Patient notes she was feeling slightly nauseated following the ERCP, which has resolved. She notes feeling hungry. Patient developed nausea after eating, which resolved the following day. Patient otherwise has had an uneventful hospitalization. Upon discharge, patient denies abdominal pain. She had her ADÁN drain removed. She denies any nausea, vomiting, fever. Incisions c/d/i. No drainage noted. Weight / BMI Weight Weight: 209 lb 6.673 oz Body Mass Index (BMI) 39.5 ABG / Lab / Microbiology Data 03/05/24 06:41 03/04/24 05:48 Laboratory: Laboratory Results - last 24 hr 03/04/24 05:48: WBC 13.4 H, RBC 3.71 L, Hgb 11.2 L, Hct 34.6 L, MCV 93.3, MCH 30.2, MCHC 32.4, RDW Std Deviation 45.0 H, RDW Coeff of Uyen 13.2, Plt Count 269, MPV 9.8, Immature Gran % (Auto) 0.400, Neut % (Auto) 82.5 H, Lymph % (Auto) 11.2 L, Atkinson % (Auto) 5.8, Eos % (Auto) 0.0, Baso % (Auto) 0.1, Absolute Neuts (auto) 11.1 H, Absolute Lymphs (auto) 1.50, Nucleated RBC % 0, Sodium 138, Potassium 4.4, Chloride 109 H, Carbon Dioxide 24.0, Anion Gap 5, BUN 12, Creatinine 0.75, Estim Creat Clear Calc 62.97, Est GFR (MDRD) Af Amer 96, Est GFR (MDRD) Non-Af 80, BUN/Creatinine Ratio 16.0, Glucose 139 H, Calcium 8.3 L, Total Bilirubin 0.30, AST 44 H, ALT 51, Alkaline Phosphatase 45, Total Protein 6.5, Albumin 2.7 L, Globulin 3.8, Albumin/Globulin Ratio 0.7 L Radiography Diagnostic Testing: Radiology Impression Cholangiogram 03/03/24 15:10 IMPRESSION: As above. Electronically Signed: Jose Ramon Ballesteros MD at 16:39 EDT , D/C Instructions Discharge Diet: Light diet - advance as tolerated Discharge Activity: May Not Drive (3 days) and May Shower (tomorrow) Lifting Restrictions: 15 pounds for 2 weeks Call your doctor if your incision/area has: Continuous Slow Oozing, Sudden Increased Bleeding, Increased Pain/ Swelling, Increased Redness, Foul Smelling Discharge and Swelling at the incision site Call your doctor if you observe: Fever of 101 or Higher Suture Line Care: Avoid Pulling/Pushing and Avoid Pinching/Bending Remove Dressing in: leave until fall off Cleanse incision/area with: Soap & Water Please Follow Up With: Guille Burrell MD When: Please contact our office to follow-up in 10-14 days after your surgery at [phone] option #2 Meaningful Use Info Meaningful Use Meaningful Use Diagnoses (Choose all that apply): None applicable Ischemic Stroke Statin Dosing Therapy Reference: STATIN DOSE THERAPY REFERENCE: * Patients > 75 years receive moderate or high dose statin therapy. * Patients 75 years or YOUNGER should receive HIGH intensity statin dose unless contraindicated. You will be required to document reason for non-treatment if statin daily dose does not meet guidelines. HIGH DOSE STATIN THERAPY DAILY Atorvastatin > than or = to 40 mg Rosuvastatin > than or = to 20 mg Amlodipine + Atorvastatin > than or = to 2.5/40 mg Ezetimibe + Simvastatin 10/80 mg Simvastatin 80mg Discharge Plan Admission Admit Date/Time: 03/02/24 14:49 Primary Reason for Your Visit: Acute cholecystitis and choledocholithiasis Attending Provider: Guille Burrell Primary Care Provider: Mai Rosario Instructions Additional Instructions / Restrictions: Cholecystectomy Diet ? Start light with soups and soft bland foods. You may advance diet as tolerated. Activity ? You may drive in 3-5 days but not while taking any narcotic pain medication. ? I encourage walking. You may go up steps, one at a time. ? Do not swim or use hot tubs for 2 weeks. ? For comfort, you may use warm compresses or ice as needed for 15-20 minutes at a time. Lifting ? You may lift up to 15 pounds for 4 weeks. Dressings/Incision ? You may shower OVER your plastic dressings ? Do NOT tub bathe for 1 week. ? When plastic dressings are removed, you will find steri strips. It is okay to continue showering with them in place, pat them dry. Medications ? Anesthesia used during surgery and pain medications may cause constipation. I recommend initiating on the day of surgery a fiber supplement like, Metamucil, Citrucel, FiberCon, Benefiber, or a generic form of these medications. 1 heaping tablespoon in water daily. You may continue to utilize any bowel regimen or oral laxatives that you routinely take. ? As long as you are not intolerant to Tylenol, acetaminophen, ibuprofen, Motrin, Advil, Aleve, or similar medications, I would recommend transitioning to these [id number] medicines as soon as possible instead of continued use of narcotic pain medication. Follow up ? You should call [facility] soon after surgery, at [phone] option 1 to make a follow up appointment for 10-14 days after your surgery. Discharge Orders/Prescriptions Prescriptions: New acetaminophen 500 mg Tablet 500 mg PO Q6H PRN PRN (Reason: Pain Score 1-10) Qty: 0 0RF melatonin 3 mg Tablet 3 mg PO QHS Qty: 0 0RF Continued metoprolol succinate 50 mg tablet extended release 24 hr 50 mg PO .hs pravastatin 80 mg tablet 80 mg PO .hs ibandronate 150 mg tablet 150 mg PO QMONTH Patient Comments: pt takes on 1st of month for bone health paroxetine HCl 10 mg tablet 10 mg PO .hs fish oil-dha-epa 1,200-144-216 mg capsule 1 cap PO .MARGARET calcium carbonate-vit D3-min 600 mg calcium- 400 unit tablet 1 tab PO BID cholecalciferol (vitamin D3) 25 mcg (1,000 unit) capsule 25 mcg PO .hs Discontinued acetaminophen 500 mg Tablet 1,000 mg PO TID 14 Days Qty: 84 0RF Rx Instructions: Do not take more than 3000 mg Tylenol in a 24-hour period. meloxicam 7.5 mg tablet 7.5 mg PO BID Patient Comments: not currently using Referrals / Follow Up: Mai Rosario DO [Primary Care Provider] - Guille Burrell MD [Med Staff - Active Staff] - 03/16/24 FriendShamir DO [Med Staff - Active Staff] - Disposition Disposition (needs filled in before D/C Order can be placed): Home, Self Care Charges/Coding Visit Charges Inpatient E&M: 76673 Disch Hosp (no charge)
[2024-03-04] MEDS: 0.9% Normal Saline (1000mL) 1,000 ML 75 ML IV (19:44)
[2024-03-04] MEDS: MELATONIN 3 MG TABLET PO (21:11)
[2024-03-05] MEDS: Acetaminophen 500 MG Tablet PO (00:10)
[2024-03-05 03:11] VITALS: BP 108/52; PULSE 71; RESP 16; TEMP 36.6; O2SAT 100
[2024-03-05 07:34] LABS: Absolute Lymphocyte Count 1.94 X10^3/uL (0.83-4.51); Absolute Neutrophil Count 8.3 X10^3/uL (2.0-7.7); Basophil# 0.03 X10^3/uL; Basophil% 0.3 % (0-1); Hematocrit 34.4 % (37-47); Hemoglobin 11.1 g/dL (12.0-15.0); Lymphocyte # 1.94 X10^3/ul (0.83-4.51); Lymphocyte % 17.4 % (19-41); Mean Corp Hgb Conc 32.3 g/dL (32-36); Mean Corpuscular Hgb 30.2 pg (27.0-32.0); Mean Corpuscular Volume 93.5 fL (81-99); Mean Platelet Vol. 9.9 fl (6.2-12.0); Monocyte# 0.84 X10^3/uL; Monocyte% 7.5 % (0-10); NRBC Flagged by Analyzer 0 % (0-5); Neutrophil % 74.2 % (47-70); Platelet Count 301 K/mm3 (150-450); RBC Distribution Width CV 13.2 % (11.6-14.6); RBC Distribution Width SD 45.6 fl (35.1-43.9); Red Blood Count 3.68 M/mm3 (4.2-5.4); White Blood Count 11.2 K/mm3 (4.4-11.0)
[2024-03-05 08:09] VITALS: BP 156/86; PULSE 78; RESP 18; TEMP 36.7; O2SAT 97
[2024-03-05 08:50] LABS: ALB/GLOB Ratio 0.7 RATIO (0.9-2.4); AST(SGOT) 29 U/L (15-37); Alanine Aminotransfer ALT/SGPT 41 U/L (13-56); Albumin, Serum 2.9 g/dL (3.2-5.0); Alkaline Phosphatase 43 U/L (45-117); Anion Gap 4 (5-15); BUN 11 mg/dL (7-18); BUN/Creat Ratio 13.5 RATIO (10-20); Calcium,Total 8.8 mg/dL (8.5-10.1); Chloride 111 mmol/L (98-107); Creatinine, Serum 0.82 mg/dL (0.55-1.02); EST Glomerular Filtration Rate 73 mL/min (>60); Est Glom Filt Rate - Afr Amer 88 mL/min (>60); Estimated Creatinine Clearance 61.44 ml/min; Globulin 4.1 g/dL (2.2-4.2); Glucose 113 mg/dL (74-106); Potassium 3.7 mmol/L (3.5-5.1); Sodium Level 141 mmol/L (136-145)
--- NOTE | 2024-03-05 09:38 | CASEMGMT ---
Noted pt has dc order in, RN CM into pt room, pt has left to go home.
== END 2024-03-05 09:35 | disposition home or self-care (01) | DRG 419 ==
LOC: ED 14:47 → MS3 15:04
PROVIDERS: Internal Medicine Gastroenterology; Admitting Provider Surgery; Emergency Provider Emergency Medicine; PCP Internal Medicine; Visit Provider Surgery
PROC: (CPT 47610; principal; 2024-03-03 14:10)
DX: K80.67 Calculus of gallbladder and bile duct with acute and chronic cholecystitis with obstruction (principal); I10 Essential (primary) hypertension; F32.A Depression, unspecified; E78.00 Pure hypercholesterolemia, unspecified; Z79.899 Other long term (current) drug therapy; Z87.891 Personal history of nicotine dependence; R10.11 Right upper quadrant pain; K21.9 Gastro-esophageal reflux disease without esophagitis; E66.9 Obesity, unspecified; Z68.39 Body mass index [BMI] 39.0-39.9, adult
CPT/HCPCS: 47563; 43264; 43274; 00732; 00790; 36415; 74300; 74328; 76000; 76705; 80048; 80053; 80076; 82150; 83690; 85025; 86140; 88108; 88304; 88305; 88313; 93005; 94668; 94762; 96361; 96365; 96366; 96367; 96375; 96376; 99221; 99284; J7030; J7120; A4216; G0378; J1610; J2405

== ENCOUNTER → 2024-03-02 | Outpatient (CLI) | payer MEDICARE, SELFPAY ==
--- NOTE | 2024-03-02 11:13 | US_ITS ---
STUDY: ABDOMINAL ULTRASOUND - RIGHT UPPER QUADRANT REASON FOR VISIT: Female, 78 years old STAT-RUQ pain, + muphys, R/O GB TECHNIQUE: Ultrasound evaluation of the right upper quadrant was performed with real-time and static cisneros-scale imaging. TECHNICAL QUALITY: Adequate. COMPARISON: None. FINDINGS: Liver: The liver is enlarged and measures 21.2 cm. There is increased echogenicity consistent with fatty infiltration. The bile ducts are within normal limits. There is hepatic color flow. The direction of portal flow is hepatopetal. There is no demonstrated mass lesion. Gallbladder: Normal distended gallbladder. The gallbladder wall is markedly thickened and measures 4.5 mm. There is a positive sonographic Stallworth''s sign. There is pericholecystic fluid. There are multiple echogenic structures within the gallbladder, consistent with multiple gallstones. Sludge is seen in the gallbladder lumen. Common Bile Duct (C.B.D.): The common bile duct measures 5 mm. Pancreas: Normal size of the head, body and tail of the pancreas. There is normal echogenicity of the pancreas. There is no demonstrated pancreatic mass or cyst. Right Kidney: Normal size of the right kidney. The right kidney measures 11.5 cm x 5 cm x 6.2 cm. Normal renal cortex. The right cortex measures 1.3 cm. There is no demonstrated renal mass or cyst. There is no right hydronephrosis. US/Abdomen Limited IMPRESSION: Hepatomegaly and fatty infiltration of the liver. Multiple gallstones and sludge within the gallbladder lumen. Small amount of pericholecystic fluid. Gallbladder wall is thickened measuring 4.5 mm. Electronically Signed: Ru Ge MD at 12:15 EDT ,
[2024-03-02 12:30] LABS: AST(SGOT) 12 U/L (15-37); Alanine Aminotransfer ALT/SGPT 20 U/L (13-56); Albumin, Serum 3.7 g/dL (3.2-5.0); Alkaline Phosphatase 57 U/L (45-117); Amylase 60 U/L (25-115); Anion Gap 5 (5-15); BUN 13 mg/dL (7-18); BUN/Creat Ratio 14.9 RATIO (10-20); Bilirubin, Direct 0.15 mg/dL (0.00-0.30); Calcium,Total 9.7 mg/dL (8.5-10.1); Chloride 105 mmol/L (98-107); Creatinine, Serum 0.87 mg/dL (0.55-1.02); EST Glomerular Filtration Rate 67 mL/min (>60); Est Glom Filt Rate - Afr Amer 81 mL/min (>60); Globulin 4.1 g/dL (2.2-4.2); Glucose 123 mg/dL (74-106); Lipase 34 U/L (13-75); Potassium 4.7 mmol/L (3.5-5.1); Protein, Total 7.8 g/dL (6.4-8.2); Sodium Level 138 mmol/L (136-145)
[2024-03-03 14:48] LABS: Absolute Lymphocyte Count 2.75 X10^3/uL (0.83-4.51); Absolute Neutrophil Count 7.1 X10^3/uL (2.0-7.7); Basophil# 0.08 X10^3/uL; Basophil% 0.7 % (0-1); Eosinophil# 0.14 X10^3/uL; Eosinophils% 1.2 % (0-5); Hematocrit 43.2 % (37-47); Hemoglobin 14.1 g/dL (12.0-15.0); Lymphocyte # 2.75 X10^3/ul (0.83-4.51); Lymphocyte % 24.4 % (19-41); Mean Corp Hgb Conc 32.6 g/dL (32-36); Mean Corpuscular Hgb 30.2 pg (27.0-32.0); Mean Corpuscular Volume 92.5 fL (81-99); Mean Platelet Vol. 10.3 fl (6.2-12.0); Monocyte# 1.09 X10^3/uL; Monocyte% 9.7 % (0-10); NRBC Flagged by Analyzer 0 % (0-5); Neutrophil # 7.14 X10^3/uL (2.7-7.7); Neutrophil % 63.6 % (47-70); Platelet Count 289 K/mm3 (150-450); RBC Distribution Width SD 43.9 fl (35.1-43.9); Red Blood Count 4.67 M/mm3 (4.2-5.4); White Blood Count 11.3 K/mm3 (4.4-11.0)
== END | disposition home or self-care (01) ==
PROVIDERS: PCP Internal Medicine; Referring Provider Nurse Practitioner Family; Visit Provider Nurse Practitioner Family
DX: R10.11 Right upper quadrant pain (principal)
CPT/HCPCS: 76705; 80048; 80076; 82150; 83690; 85025; 86140

== ENCOUNTER → 2024-03-16 | Outpatient (CLI) | payer MEDICARE, SELFPAY ==
[2024-03-18 11:10] LABS: Carbohydrate Ag 19-9 2261 19 U/mL (0-35)
== END | disposition home or self-care (01) ==
LOC: LAB 14:00
PROVIDERS: PCP Internal Medicine; Referring Provider Internal Medicine Gastroenterology; Visit Provider Internal Medicine Gastroenterology
DX: K80.00 Calculus of gallbladder with acute cholecystitis without obstruction (principal)
CPT/HCPCS: 36415; 86301

== ENCOUNTER 2024-04-27 09:21 | Day surgery (SDC) | payer MEDICARE, SELFPAY ==
[2024-04-27] VITALS (9 sets, daily range): BP systolic 113–140; BP diastolic 73–85; PULSE 72–94; RESP 16; TEMP 36.1–36.6; O2SAT 93–97; BMI 39.1
--- NOTE | 2024-04-27 09:36 | EKG12_ITS ---
Test Reason : PRE OP Blood Pressure : / mmHG Vent. Rate : 071 BPM Atrial Rate : 071 BPM P-R Int : 194 ms QRS Dur : 076 ms QT Int : 404 ms P-R-T Axes : 030 -15 061 degrees QTc Int : 439 ms Normal sinus rhythm with sinus arrhythmia Low voltage QRS Borderline ECG When compared with ECG of 02-MAR-2024 13:17, No significant change was found Confirmed by Guille Fuentes ([id number]), society editor LENARD DURAN ([id number]) on 04/27/2024 1:24:15 PM Referred By: Mai Rosario Confirmed By:Guille Fuentes
[2024-04-27] MEDS: Lactated Ringers 1,000 ML 15 ML IV (10:00)
--- NOTE | 2024-04-27 10:28 | PCM.PRE.AN2 ---
ASA Classification* ASA Classification ASA Classification: 2 Assessment & Plan Anesthesia* Anesthesia Assessment Anesthesia Assessment: Discussed sedation and/or anesthesia options, risks, benefits, and alternatives with patient/parents/legal guardian/POA. Questions invited. The patient/parents/legal guardian/POA seems to understand and agrees to proceed with anesthesia plan. Reviewed the physical assessment, medical history, allergy history and patient home medications list prior to surgery/procedure/anesthetic and documented any changes. Performed airway and anesthesia risk assessments. Anesthesia Type Anesthesia Type: MAC History Source History Obtained from:: Patient and Chart Anesthesia Focused Assessment* Temperature: 97 F Pulse Rate: 72 Blood Pressure: 140/85 Respiratory Rate: 16 Pulse Ox: 94 Oxygen Delivery Method: Room Air Airway Assessment Mouth opens: >3 cm Mallampati Score: IV Teeth Condition: Caps/Crowns (Patient has multiple crowns on her molars. They are all tight.) and Chipped/Broken (Front incisor #9 is bonded.) Neck Range of motion (ROM): Limited ROM Focused Labs Anesthesia Preop lab: CBC WBC 11.2 K/mm3 (4.4-11.0) H 03/05/24 06:41 RBC 3.68 M/mm3 (4.2-5.4) L 03/05/24 06:41 Hgb 11.1 g/dL (12.0-15.0) L 03/05/24 06:41 Hct 34.4 % (37-47) L 03/05/24 06:41 Plt Count 301 K/mm3 (150-450) 03/05/24 06:41 CHEMISTRY Potassium 3.7 mmol/L (3.5-5.1) 03/05/24 06:41 Sodium 141 mmol/L (136-145) 03/05/24 06:41 Magnesium 2.2 mg/dL (1.6-2.6) 08/09/23 08:49 BUN 11 mg/dL (7-18) 03/05/24 06:41 Creatinine 0.82 mg/dL (0.55-1.02) 03/05/24 06:41 Glucose 113 mg/dL (74-106) H 03/05/24 06:41 POC Glucose 90 mg/dL (74-106) 09/04/23 06:44 COAG Pre-Assessment Diagnosis/Proposed Procedure Planned Operative Procedure(s): ERCP W/ STENT PULL Anesthesia History Anesthesia History - item processing clerk: Anesthesia History - item processing clerk Hx Hospitalization No 04/21/24 15:05 Any Problems With Anesthesia No 04/21/24 15:05 Cholinesterase deficiency No 04/21/24 15:05 You/Your Family Experience No 04/21/24 15:05 fever (hyperthermia) with Relationship Recent Exposure to Contagious No 04/27/24 09:56 Disease Does patient have nerve No 04/21/24 15:05 stimulator Patient instructed to have device shut off --Does patient have Pacemaker No 04/27/24 09:56 or ICD? When Was Last Pacemaker Check QUESTION #4 FULL TEXT: You/Your Family Experience fever (hyperthermia) with Anesthesia Last Oral Intake Last Oral intake: Last Oral Intake NPO since 00:00 04/27/24 09:56 Meds taken in AM with sips of water? Meds patient instructed to take am of surgery PONV PONV - item processing clerk: PONV - item processing clerk Female Yes 04/21/24 15:05 HX of Motion Sickness Yes 04/21/24 15:05 HX of N/V After Surgery No 04/21/24 15:05 Non-Smoker Yes 04/21/24 15:05 Duration of Surgery greater No 04/21/24 15:05 than 60 minutes Number of Risk Factors 3 04/21/24 15:05 PONV Score Moderate Risk 04/21/24 15:05 Height & Weight Height & Weight: Anesthesia: Height & Weight Height 5 ft 1 in 04/27/24 09:56 Weight: 93.894 kg 04/27/24 09:56 Body Mass Index (BMI) 39.1 04/27/24 09:56 Respiratory Assessment Respiratory Assessment - item processing clerk: Respiratory Tract Infection Hx - item processing clerk Hx Respiratory Tract Infection No 04/21/24 15:05 STOP Sleep Apnea STOP Sleep Apnea - item processing clerk: STOP Sleep Apnea - item processing clerk Hx Hypertension Yes: CONTROLLED ON MED 04/21/24 15:05 Hx Sleep Apnea Yes 04/21/24 15:05 CPAP No 04/21/24 15:05 BIPAP No 04/21/24 15:05 Do you snore loudly (louder than talking or can be heard Do you often feel tired/ fatigued/ sleepy during daytime? Has anyone observed you stop breathing during sleep? STOP Results Positive 04/21/24 15:05 QUESTION #5 FULL TEXT : Do you snore loudly (louder than talking or can be heard through closed doors)? 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 Specify any problems Hx of Preganancy in last 3 No 04/21/24 15:05 Months Nurse Filling Out Transfusion VCHRISTIN 04/21/24 15:05 & Questions: Date: 04/21/24 04/21/24 15:05 Time: 15:06 04/21/24 15:05 Patient unable to answer at this time (ie. confused, unrespo /Reproduction History /Reproductive History - item processing clerk: /Reproductive Hx- item processing clerk Hx Now Gestational Age (in weeks): EDC: Hx Hx Para Hx Section SAB No 04/21/24 15:05 Active Medications Active Medications: Current Medications Generic Name Dose Route Start Last Admin Trade Name Freq PRN Reason Stop Dose Admin Lactated Ringer's 1,000 mls @ 15 mls/hr 04/27/24 09:45 04/27/24 10:00 IV 15 mls/hr .Q48H TRI Administration PFSH Medical History (Updated 04/21/24 @ 15:05 by Karolina Restrepo) Wears glasses Anxiety Cancer Arthritis Low iron Restless legs Gastric reflux Heartburn Former smoker Leg cramps HTN (hypertension) Depression High cholesterol Home Medications ?Medication ?Instructions ?Recorded ?Last Taken ?Type calcium 600 mg (as carbonate)-vit 1 tab PO BID 06/06/23 09/03/23 History D3 10 mcg (400 unit)-minerals tablet cholecalciferol (vitamin D3) 25 25 mcg PO QHS bone 06/06/23 09/03/23 History mcg (1,000 unit) capsule fish oil-dha-epa 1,200 mg-144 1 cap PO DAILY helath 06/06/23 Unknown History mg-216 mg capsule ibandronate 150 mg tablet 150 mg PO QMONTH bone health 06/06/23 09/03/23 History metoprolol succinate 50 mg 50 mg PO QHS bp 06/06/23 04/26/24 20:30 History tablet,extended release 24 hr paroxetine HCl 10 mg tablet 10 mg PO QHS de 06/06/23 09/03/23 History pravastatin 80 mg tablet 80 mg PO QHS chol 06/06/23 09/03/23 History acetaminophen 500 mg tablet 500 mg PO Q6H PRN PRN Pain Score 03/04/24 Unknown Rx 1-10 #0 tabs Allergy/AdvReac Type Severity Reaction Status Date / Time Penicillins AdvReac Mild Hives Verified 04/27/24 09:55 Family History Mother Diabetes Brother Cancer skin Father Ulcer Surgical History (Updated 04/21/24 @ 15:05 by Karolina Restrepo) History of ERCP Hx laparoscopic cholecystectomy History of total knee replacement S/P tonsillectomy S/P hysterectomy Social History Smoking Status: Former smoker alcohol intake: current Review of Systems (Anesthesia) ROS Narrative System reviewed and no additional complaints, except as documented.
--- NOTE | 2024-04-27 10:30 | FLU_PTH ---
PATIENT: RAMOS CASTELLANOS LOC: EN U#:[id number] AGE/SX: 78/F ROOM: RE04/27/[address]: Dr. Shamir Steinberg DO : 1945 BED: DIS: 04/27/2024 SPEC #: [id number] RECD: 04/28/24 08:52 STATUS: DALTON LISA #: [id number] JEN: 04/27/24 10:[address]: Shamir Steinberg DEPT: CYTOLOGY RECD BY: Dahiana Alonso ENTERED: 04/28/24 09:38 SP TYPE: Fluid OTHR DR: Dr. Mai Rosario DO Tissues: Bile duct, NOS Procedures: Special Stain Group II Surgery Specimen Level III Surgery Specimen Level IV Cytospin Fluid HEADER OPERATION: ERCP with stent pull PRE-OP DIAGNOSIS: Cholecystitis with cholelithiasis, choledocholithiasis TISSUE SUBMITTED: Biliary stent for cytology DIAGNOSIS CYTOLOGY Biliary stent fluid for cytology (cytospin and cellblock): Rare atypical epithelial cells are present. See comment. AM. 04/29/2024 COMMENT Clinical correlation is suggested. Case has been reviewed in consultation with Dr. Draper who concurs with the above diagnosis. IDC:SJ CYTOLOGY STUDY Slides are reviewed. CYTOLOGY GROSS Received is 8cm blue stent with 0.2 ml of yellow-brown material in 10% formalin labeled with the patient's name and and designated per the requisition as Biliary stent. Submitted for cytology preparation including cell block. Mr 04/28/2024 TC:5 CPT: 10617,13636
--- NOTE | 2024-04-27 10:31 | HP.PCM_ITS ---
HPI - General General Date of Admission: 04/27/24 Date of Service: 04/27/24 Chief Complaint: Choledocholithiasis HPI Narrative RAMOS CASTELLANOS, is a 78 F who presents today for ERCP with stent removal. She is s/p laparoscopic cholecystectomy with intraoperative cholangiogram by Dr. Burrell on 03/03/24. Cholangiogram was noted to have filling defects. I performed an ERCP on 03/04/24 and a stent was placed. Some bushings were obtained and removal of single gallstone. Patient tolerated the procedure well. Patient denies any nausea, vomiting, fever since the procedure. She notes appetite and bowel habits have returned to normal. Pathology demonstrated: chronic cholecystitis with cholelithiasis. Cytology demonstrated: No malignant cells [facility] Medical History (Updated 04/21/24 @ 15:05 by Karolina Restrepo) Wears glasses Anxiety Cancer Arthritis Low iron Restless legs Gastric reflux Heartburn Former smoker Leg cramps HTN (hypertension) Depression High cholesterol Home Medications ?Medication ?Instructions ?Recorded ?Last Taken ?Type calcium 600 mg (as carbonate)-vit 1 tab PO BID 06/06/23 09/03/23 History D3 10 mcg (400 unit)-minerals tablet cholecalciferol (vitamin D3) 25 25 mcg PO QHS bone 06/06/23 09/03/23 History mcg (1,000 unit) capsule fish oil-dha-epa 1,200 mg-144 1 cap PO DAILY helath 06/06/23 Unknown History mg-216 mg capsule ibandronate 150 mg tablet 150 mg PO QMONTH bone health 06/06/23 09/03/23 History metoprolol succinate 50 mg 50 mg PO QHS bp 06/06/23 04/26/24 20:30 History tablet,extended release 24 hr paroxetine HCl 10 mg tablet 10 mg PO QHS de 06/06/23 09/03/23 History pravastatin 80 mg tablet 80 mg PO QHS chol 06/06/23 09/03/23 History acetaminophen 500 mg tablet 500 mg PO Q6H PRN PRN Pain Score 03/04/24 Unknown Rx 1-10 #0 tabs Allergy/AdvReac Type Severity Reaction Status Date / Time Penicillins AdvReac Mild Hives Verified 04/27/24 09:55 Family History Mother Diabetes Brother Cancer skin Father Ulcer Surgical History (Updated 04/21/24 @ 15:05 by Karolina Restrepo) History of ERCP Hx laparoscopic cholecystectomy History of total knee replacement S/P tonsillectomy S/P hysterectomy Social History Smoking Status: Former smoker alcohol intake: current ROS Review of Systems ROS Unobtainable: other Constitutional Constitutional: Denies fatigue, fever(s), poor appetite, weight gain or weight loss ENT HEENT: Denies mouth lesions Cardiovascular Cardiovascular: Denies abdominal bloating, abdominal edema or abdominal pain Respiratory/Chest Respiratory/Chest: Denies change in mental status, change in phlegm color, chest congestion or chest tightness Gastrointestinal Gastrointestinal: Denies belching, bloating, change in bowel habits, change in stool character, chewing difficulty, coffee ground emesis, constipation, cr amping, diarrhea, dyspepsia, dysphagia, early satiety, excessive flatus, fecal incontinence, heartburn, hematemesis, hematochezia, hemorrhoids, loose stools, melena, nausea, odynophagia, rectal bleeding, tenesmus, vomiting or weight changes Genitourinary Genitourinary: Denies abdominal discomfort, burning urination or itching Musculoskeletal Musculoskeletal: Reports as per HPI; Denies muscle weakness or myalgias Integumentary Integumentary: Denies jaundice Neurologic Neurologic: Denies lack of coordination or weakness Psychiatric Psychiatric: Denies confusion, depression, memory loss, mood swings, paranoia or suicidal ideation Endocrine Endocrinology: Denies systems reviewed and no addt'l complaints, except as documented Hematologic/Lymphatic Hematologic/Lymphatic: Denies anemia, easy bleeding, easy bruising or lymphadenopathy Allergic/Immunologic Allergic/Immunologic: Denies systems reviewed and no addt'l complaints, except as documented Vital Signs Vital Signs Vital Signs: 04/27/24 09:56 04/27/24 09:56 Temperature 97 F L Temperature Source Temporal Pulse Rate 72 Respiratory Rate 16 Respiratory Pattern Normal Blood Pressure 140/85 H Blood Pressure Mean 103 Blood Pressure Source Monitor Blood Pressure Position Semi-Fowlers Blood Pressure Location Left Forearm Pulse Ox 94 Oxygen Delivery Method Room Air Weight Weight: 207 lb Body Mass Index (BMI) 39.1 Physical Exam Const alert, oriented x3, no apparent distress, healthy appearing and well nourished General Appearance: cooperative, comfortable, well kempt and well developed Orientation / Consciousness: awake and oriented to person HEENT Head and Scalp: normocephalic and atraumatic Face and Sinus: normal facial exam Mouth: oral and palatal mucosa normal Eyes General Eye: normal appearance of both eyes Neck full ROM Lymph Lymphatic: no lymphadenopathy noted Chest inspection of chest normal Resp normal respiratory effort and no use of accessory muscles Cardio regular rate and regular rhythm GI normal to inspection, nondistended, normoactive bowel sounds, soft to palpation, non-tender, non-distended and no masses Auscultation: normoactive bowel sounds Palpation: soft Percussion: normal to percussion Rectal Exam: visual inspection normal and normal sphincter tone no CVA tenderness Back/Spine no CVA tenderness and normal ROM Extremity normal to inspection Peripheral Pulses: Yes pulses 2+ throughout Skin no rashes or lesions noted General Skin Exam: no breakdown, elasticity normal and turgor normal Neuro oriented x3 Motor Exam: strength 5/5 throughout Psych mental status grossly normal Appearance: grossly normal Attitude: calm Activity / Motor Behavior: appropriate eye contact Speech: normal speech Thought Process: normal thought process Thought Content: normal thought content Attention / Concentration: attention grossly intact Memory / Cognition: memory grossly intact Insight: insight good Judgement: judgement good Assessment & Plan Assessment/Plan (1) Cholecystitis with cholelithiasis: QUALIFIERS: Cholelithiasis location: gallbladder Cholecystitis acuity: acute Biliary obstruction: without biliary obstruction Qualified Code(s): K80.00 - Calculus of gallbladder with acute cholecystitis without obstruction (2) Choledocholithiasis: PLAN: Plan 78-year-old status postcholecystectomy with abnormal intraoperative cholangiogram consistent with common bile duct obstruction secondary to choledocholithiasis. She will undergo ERCP with stent removal and/or replacement. She was explained alternatives, risk, benefits including outstanding bleeding, infection, sepsis, perforation, and post ERCP pancreatitis. She will have an ASA of 3 for the procedure.
--- NOTE | 2024-04-27 11:15 | RAD_ITS ---
STUDY: ERCP. REASON FOR EXAM: Female, 78 years old. ERCP WITH STENT PULL FLUOROSCOPY TIME (if supplied): ( 64.3 seconds ) minutes/seconds. 30.24 mGy. 9 images were submitted. TECHNIQUE: An ERCP was performed by the mineral resources inspector. Fluoroscopic services provided. COMPARISON: Comparison is made with prior study dated March 04, 2024. FINDINGS: Stent removal. RAD/ERCP Biliary/Pancreas IMPRESSION: Stent removal. Electronically Signed: Ru Ge MD at 9:09 EDT ,
--- NOTE | 2024-04-27 11:42 | OP.ERCP_ITS ---
Patient Name: Neela Harding Procedure Date: 04/27/2024 10:37 AM Date of : 1945 Age: 78 Procedure: ERCP Indications: Bile duct stone(s), Biliary stent removal Providers: Shamir Steinberg DO Medicines: Monitored Anesthesia Care Patient Profile: This is a 78 year old female. Refer to note in patient chart for documentation of history and physical. Patient has symptoms of chronic right upper quadrant abdominal pain. She is status post laparoscopic cholecystectomy within the past three months. Complications: No immediate complications. Procedure: Pre-Anesthesia Assessment: - Prior to the procedure, a History and Physical was performed, and patient medications and allergies were reviewed. The patient is competent. The risks and benefits of the procedure and the sedation options and risks were discussed with the patient. All questions were answered and informed consent was obtained. Patient identification and proposed procedure were verified by the physician in the pre-procedure area. Mental Status Examination: alert and oriented. Airway Examination: normal oropharyngeal airway and neck mobility. Respiratory Examination: clear to auscultation. CV Examination: normal. Prophylactic Antibiotics: The patient does not require prophylactic antibiotics. Prior Anticoagulants: The patient has taken no anticoagulant or antiplatelet agents except for NSAID medication. ASA Grade Assessment: II - A patient with mild systemic disease. After reviewing the risks and benefits, the patient was deemed in satisfactory condition to undergo the procedure. The anesthesia plan was to use monitored anesthesia care (MAC). Immediately prior to administration of medications, the patient was re-assessed for adequacy to receive sedatives. The heart rate, respiratory rate, oxygen saturations, blood pressure, adequacy of pulmonary ventilation, and response to care were monitored throughout the procedure. The physical status of the patient was re-assessed after the procedure. After obtaining informed consent, the scope was passed under direct vision. Throughout the procedure, the patient's blood pressure, pulse, and oxygen saturations were monitored continuously. The Duodenoscope was introduced through the mouth, and advanced to the duodenum and used to inject contrast into the bile duct and ventral pancreatic duct. The ERCP was accomplished without difficulty. The patient tolerated the procedure well. 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 The esophagus was successfully intubated under direct vision. The scope was advanced to a normal major papilla in the descending duodenum without detailed examination of the pharynx, larynx and associated structures, and upper GI tract. The upper GI tract was grossly normal. A long 0.025 inch Jagwire was passed into the biliary tree. The short-nosed traction sphincterotome was passed over the guidewire and the bile duct was then deeply cannulated. Contrast was injected. I personally interpreted the bile duct and pancreatic duct images. There was brisk flow of contrast through the ducts. Image quality was adequate. Contrast extended to the entire biliary tree. Opacification of the entire opacified area and entire biliary tree was successful. The maximum diameter of the ducts was 10 mm. The lower third of the main bile duct contained two stones, the largest of which was 6 mm in diameter. The main bile duct was diffusely dilated, with a stone causing an obstruction. The largest diameter was 10 mm. A cholecystectomy had been performed. A 5 mm biliary sphincterotomy was made with a traction (standard) sphincterotome using ERBE electrocautery. There was no post-sphincterotomy bleeding. The biliary tree was swept with a 12 mm balloon starting at the bifurcation. Sludge was swept from the duct. All stones were removed. One stent was removed from the biliary tree using a snare and sent for cytology. The stent was found to be partially occluded via the water column test. Impression: - The entire main bile duct was dilated, with a stone causing an obstruction. - The patient has had a cholecystectomy. - Choledocholithiasis was found. Complete removal was accomplished by biliary sphincterotomy and balloon extraction. - A biliary sphincterotomy was performed. - The biliary tree was swept. - One stent was removed from the biliary tree. Procedure Code(s): --- Professional --- 96160, Endoscopic retrograde cholangiopancreatography (ERCP); with removal of foreign body(s) or stent(s) from biliary/pancreatic duct(s) 19379, Endoscopic retrograde cholangiopancreatography (ERCP); with removal of calculi/debris from biliary/pancreatic duct(s) 57558, Endoscopic retrograde cholangiopancreatography (ERCP); with sphincterotomy/papillotomy 16283, 26, Combined endoscopic catheterization of the biliary and pancreatic ductal systems, radiological supervision and interpretation CPT copyright 2021 [employer]. All rights reserved. The codes documented in this report are preliminary and upon business excellence leader review may be revised to meet current compliance requirements. Shamir Steinberg DO 04/27/2024 11:42:19 AM This report has been signed electronically. Number of Addenda: 0 Note Initiated On: 04/27/2024 10:37 AM
--- NOTE | 2024-04-27 11:43 | OP.CCLET_ITS ---
04/27/2024 Mai Rosario [address] [place] [address] Re : ERCP procedure for Neela Mccarthyr Dear Dr. Rosario This procedure was performed on Saturday, April 27, 2024. My impressions and recommendations are as follows: Impressions : - The entire main bile duct was dilated, with a stone causing an obstruction. - The patient has had a cholecystectomy. - Choledocholithiasis was found. Complete removal was accomplished by biliary sphincterotomy and balloon extraction. - A biliary sphincterotomy was performed. - The biliary tree was swept. - One stent was removed from the biliary tree. Recommendations : My findings are described in the full procedure note, which is enclosed. If I can be of further assistance, please feel free to contact me at . Sincerely, Shamir Steinberg, 04/27/2024 11:42:19 AM This report has been signed electronically.
--- NOTE | 2024-04-27 11:49 | PCM.POST.ANE ---
Anesthesia: Postop Eval I Current Vital Signs Temperature: 97.8 F Pulse Rate: 87 Blood Pressure: 128/79 Respiratory Rate: 16 Pulse Ox: 97 Oxygen Delivery Method: Room Air Assessment Airway patent: Yes Spontaneous unlabored respirations: Yes Mental status: Awake and Calm nausea: No Vomiting: No Anesthesia Complication: Yes Anesthesia Complication Comment:: O2 desat d/t KEV, case completed in supine position Fluid Hydration Crystalloid volume administer (ml): 600 Total IV fluid infused: 600 Progress Note Anesthesia document: Postop Eval 1 completed: Yes
--- NOTE | 2024-04-27 15:56 | PCM.POSTANE2 ---
Anesthesia Postop Eval I Sum Postop Eval Completion status Anesthesia document: Postop Eval 1 completed: Yes Anesthesia Postop Eval I Summary Anesthesia Postop Eval I Summary: Anesthesia Postop Eval I: Assessment Summary Airway patent Yes 04/27/24 11:50 [email or web address] Spontaneous unlabored Yes 04/27/24 11:50 [email or web address] respirations Mental status Awake,Calm 04/27/24 11:50 [email or web address] nausea No 04/27/24 11:50 [email or web address] Vomiting No 04/27/24 11:50 [email or web address] Anesthesia Postop Eval I: Fluid Summary Crystalloid volume administer 600 04/27/24 11:50 [email or web address] (ml) Colloids volume administered ( ml) Blood Product volume administered (ml) Total IV fluid infused 600 04/27/24 11:50 [email or web address] Anesthesia Postop Eval I: Summary Notes Anesthesia Complication Yes 04/27/24 11:50 [email or web address] Anesthesia Complication O2 desat d/t KEV, 04/27/24 11:50 [email or web address] Comment: case completed in supine position Post-operative progress note Anesthesia: Postop Eval II Evaluation Mental status: Awake and Calm Pain Level: 0 nausea: No Vomiting: No Progress Note Post-operative progress note: Breathing better while awake Complications Anesthesia Complication: No
== END 2024-04-27 12:37 | disposition home or self-care (01) ==
LOC: EN 09:23 → AC 09:24
PROVIDERS: PCP Internal Medicine; Referring Provider Internal Medicine; Visit Provider Internal Medicine Gastroenterology
PROC: (CPT 43260; principal; 2024-04-27 10:10)
DX: K80.71 Calculus of gallbladder and bile duct without cholecystitis with obstruction (principal); I10 Essential (primary) hypertension; E78.00 Pure hypercholesterolemia, unspecified; F32.A Depression, unspecified; F41.9 Anxiety disorder, unspecified; Z87.891 Personal history of nicotine dependence; Z79.899 Other long term (current) drug therapy
CPT/HCPCS: 43275; 43264; 43262; 74330; 76000; 88108; 88304; 88305; 88313; 93005; J7120; J2405

== ENCOUNTER → 2024-08-11 | Outpatient (CLI) | payer MEDICARE, SELFPAY ==
--- NOTE | 2024-08-11 15:22 | BI_ITS ---
MAMMOGRAPHY - BILATERAL SCREENING REASON FOR EXAM: Female, 78 years old. Routine annual screening examination. PERTINENT HISTORY: Non-contributory. TECHNIQUE: Digital bilateral breast kika (3D mammographic acquisition) in the CC and MLO projections. 2-D mediolateral oblique (MLO) and craniocaudad (CC) views of both breasts were obtained. CAD: Full Field Digital Mammography with Computer Added Detection was performed. COMPARISON: Comparison is made with prior study dated July 22, 2023 and June 13, 2022. FINDINGS: Breast Composition: There are scattered areas of fibroglandular density. There are no dominant masses or suspicious calcifications. Stable 9 mm well-defined nodule in the retroareolar region of the left breast. Stable bilateral fat containing axillary lymph nodes. No other significant abnormalities are identified. There has been no significant change since the prior study. BI/SCRN MAMM (CAD)W/KIKA BILAT IMPRESSION: Stable bilateral screening mammogram. Yearly follow-up mammogram recommended. (A) ASSESSMENT CATEGORY: BIRADS Category 2: Benign. A letter regarding these results will be sent to the patient by the facility within 30 days. Approximately 10% of breast cancers are not detected by mammography. A normal mammogram should not delay biopsy of a clinically suspicious abnormality. [id number] Electronically Signed: Ru Ge MD at 8:26 EST ,
--- NOTE | 2024-08-11 15:26 | BD_ITS ---
STUDY: DUAL ENERGY X-RAY ABSORPTIOMETRY / DXA REASON FOR EXAM: Female, 78 years old. 627.8Menopausal postmenopausal BONE DENSITY REASON FOR EXAM -- Post-menopausal status TECHNIQUE: Bone Mineral Density (BMD) measurements of lumbar spine and bilateral hips were obtained. COMPARISON: Comparison is made with prior study dated June 13, 2022 and August 18, 2019. FINDINGS: Lumbar Spine (L1-L4): g/cm2 (0.939) / T-score (-1.0) / Z-score (1.5) Findings are suggestive of normal bone density with a low fracture risk. Left Femur Total: g/cm2 (0.918) / T-score (-0.2) / Z-score (1.7) Left Femoral Neck: g/cm2 (0.768) / T-score (-0.7) / Z-score (1.4) Right Femur Total: g/cm2 (0.972) / T-score (0.2) / Z-score (2.1) Right Femoral Neck: g/cm2 (0.871) / T-score (0.2) / Z-score (2.4) The T-Scores on the most recent prior examination were: Lumbar Spine (L1-L4): There has been improvement of bone density since the previous examination. Left Femur Total: which represents an improvement of 1.1%. Right Femur Total: which represents an improvement of 3.9%. BD/Dexa Bone Density Study IMPRESSION: The patient is considered normal as outlined below according to World Hunter Organization (WHO) criteria with a low fracture risk. There has been improvement of bone density since the previous examination. Reference Information: The T-score is the number of standard deviations above or below the standard which is normal for young adults at their peak bone mineral density. The World Health Organization (WHO) interprets the T-scores as follows: Above -1 Normal bone density Between -1 and -2.5 Osteopenia Equal to / or below -2.5 Osteoporosis As a practical clinical guideline, osteopenia may be graded as follows: Mild -1 through -1.5 Moderate -1.6 through -2.0 Severe -2.1 through -2.4 The Z-score is the number of standard deviations above or below age-matched controls. A Z-score of less than -1.5 would be considered abnormal. References: 1. NIH Osteoporosis and Related Bone Diseases www osteo.org 2. International Society for Clinical Densitometry www iscd.org 3. National Osteoporosis Foundation www nof.org Electronically Signed: Ru Ge MD at 9:38 EST ,
== END | disposition home or self-care (01) ==
LOC: OPBD 15:20
PROVIDERS: PCP Internal Medicine; Referring Provider Internal Medicine; Visit Provider Internal Medicine
DX: Z12.31 Encounter for screening mammogram for malignant neoplasm of breast (principal); Z78.0 Asymptomatic menopausal state
CPT/HCPCS: 77063; 77067; 77080

== ENCOUNTER → 2024-11-12 | Outpatient (CLI) | payer MEDICARE, SELFPAY ==
[2024-11-12 10:17] LABS: Bacteria 0 SEEN /hpf (None Seen)
[2024-11-12 10:52] LABS: Absolute Lymphocyte Count 2.81 X10^3/uL (0.83-4.51); Absolute Neutrophil Count 3.8 X10^3/uL (2.0-7.7); Basophil# 0.11 X10^3/uL; Basophil% 1.5 % (0-1); Eosinophil# 0.17 X10^3/uL; Eosinophils% 2.3 % (0-5); Hematocrit 43.4 % (37-47); Hemoglobin 14.8 g/dL (12.0-15.0); Lymphocyte # 2.81 X10^3/ul (0.83-4.51); Lymphocyte % 37.3 % (19-41); Mean Corp Hgb Conc 34.1 g/dL (32-36); Mean Platelet Vol. 9.8 fl (6.2-12.0); NRBC Flagged by Analyzer 0 % (0-5); Neutrophil # 3.81 X10^3/uL (2.7-7.7); Neutrophil % 50.5 % (47-70); Platelet Count 252 K/mm3 (150-450); RBC Distribution Width CV 13.1 % (11.6-14.6); RBC Distribution Width SD 43.7 fl (35.1-43.9); Red Blood Count 4.77 M/mm3 (4.2-5.4); White Blood Count 7.5 K/mm3 (4.4-11.0)
[2024-11-12 10:54] LABS: Color, Urine Yellow (Yellow); Glucose, Dipstick Normal (Normal); Ketone-Dipstick Negative (Negative); Leukocyte Esterase-Dipstick 500 /ul (Negative); Nitrite-Dipstick Negative (Negative); Occult Blood-Urine Negative /ul (Negative); Protein-Dipstick 30 mg/dl (Negative); Specific Gravity, Urine 1.025 (1.002-1.030); Urine Clarity Clear (Clear); Urine Urobilinogen Normal (Normal)
[2024-11-12 11:01] LABS: Urine Bilirubin Dipstick 1 mg/dL (Negative)
[2024-11-12 11:06] LABS: Microalbumin,Random Urine 51.8 mg/L (NO RANGE EST.); Microalbumin:Creatinine Ratio 197.7 mg/g CRE
[2024-11-12 11:30] LABS: ALB/GLOB Ratio 1.4 RATIO (0.9-2.4); AST(SGOT) 20 U/L (<=31); Alanine Aminotransfer ALT/SGPT 20 U/L (<=34); Albumin, Serum 4.4 g/dL (3.4-4.8); Alkaline Phosphatase 48 U/L (35-104); Anion Gap 14 (5-15); BUN 18 mg/dL (4-19); BUN/Creat Ratio 23.2 RATIO (10-20); Calcium,Total 9.7 mg/dL (7.6-11.0); Chloride 104 mmol/L (98-108); Cholesterol 157 mg/dL (<=200); Creatinine, Serum 0.76 mg/dL (0.70-1.20); EST Glomerular Filtration Rate 82 (>60); Globulin 3.2 g/dL (2.2-4.2); Glucose 99 mg/dL (70-99); High Density Lipoprotein 56 mg/dL; Low Density Lipoprotein Calc. 69 mg/dL; Potassium 4.5 mmol/L (3.3-5.1); Protein, Total 7.6 g/dL (5.9-8.4); Red Blood Cells-Urine 0-5 SEEN /hpf (0-5); Sodium Level 140 mmol/L (133-145); Squamous Epithelial Cells - UA 5-10 SEEN /hpf (5-10); Total Bilirubin 0.41 mg/dL (0.00-1.30); Triglycerides 156 mg/dL; Very Low Density Lipoprotein 31 mg/dL (5-40); White Blood Cells 5-10 SEEN /hpf (0-5); cholesterol:hdl ratio screen 2.78
[2024-11-12 11:32] LABS: Fine Granular Cast- Urine 5-10 SEEN /lpf (0-5); Hyaline Cast 10-25 SEEN /lpf (0-5); Mucous, Urine 1+ /hpf (<or=2+)
[2024-11-12 11:41] LABS: Vitamin D,25 Hydroxy 38.3 ng/mL (30-100)
[2024-11-13 17:08] LABS: Carbohydrate Ag 19-9 2261 24 U/mL (0-35)
== END | disposition home or self-care (01) ==
LOC: LAB 10:09
PROVIDERS: Internal Medicine Gastroenterology; PCP Internal Medicine; Referring Provider Internal Medicine; Visit Provider Internal Medicine
DX: E55.9 Vitamin D deficiency, unspecified (principal); E78.00 Pure hypercholesterolemia, unspecified; R73.09 Other abnormal glucose; Z90.49 Acquired absence of other specified parts of digestive tract
CPT/HCPCS: 36415; 80053; 80061; 81001; 82043; 82306; 82570; 84443; 85025; 86301

== ENCOUNTER → 2025-07-19 | Outpatient (CLI) | payer MEDICARE, SELFPAY ==
[2025-07-19 11:18] LABS: Mucous, Urine 0 SEEN /hpf (<or=2+)
[2025-07-19 15:30] LABS: Hematocrit 43.2 % (37-47); Hemoglobin 14.5 g/dL (12.0-15.0); Immature Granulocytes Count 0.020 X10^3/uL (0.0-0.0); Mean Corp Hgb Conc 33.6 g/dL (32-36); Mean Corpuscular Volume 93.7 fL (81-99); Mean Platelet Vol. 9.9 fl (6.2-12.0); NRBC Flagged by Analyzer 0 % (0-5); Platelet Count 252 K/mm3 (150-450); RBC Distribution Width CV 12.6 % (11.6-14.6); RBC Distribution Width SD 43.7 fl (35.1-43.9); Red Blood Count 4.61 M/mm3 (4.2-5.4); White Blood Count 8.0 K/mm3 (4.4-11.0)
[2025-07-19 15:41] LABS: Color, Urine Yellow (Yellow); Glucose, Dipstick Normal (Normal); Ketone-Dipstick Negative (Negative); Leukocyte Esterase-Dipstick 100 /ul (Negative); Nitrite-Dipstick Negative (Negative); Occult Blood-Urine Negative /ul (Negative); Protein-Dipstick 15 mg/dl (Negative); Specific Gravity, Urine 1.010 (1.002-1.030); Urine Bilirubin Dipstick Negative (Negative)
[2025-07-19 15:51] LABS: Creatinine, Urine (random) 134.00 mg/dL (28.00-217.00); Microalbumin,Random Urine < 12.0 mg/L (<20 mg/L)
[2025-07-19 15:58] LABS: AST(SGOT) 23 U/L (<=31); Alanine Aminotransfer ALT/SGPT 24 U/L (<=34); Albumin, Serum 4.3 g/dL (3.4-4.8); Alkaline Phosphatase 42 U/L (35-104); Anion Gap 11 (5-15); BUN 16 mg/dL (4-19); BUN/Creat Ratio 19.0 RATIO (10-20); Calcium,Total 9.6 mg/dL (7.6-11.0); Carbon Dioxide 26.3 mmol/L (21.0-32.0); Chloride 102 mmol/L (98-108); Cholesterol 178 mg/dL (<=200); Globulin 3.1 g/dL (2.2-4.2); Glucose 103 mg/dL (70-99); Low Density Lipoprotein Calc. 96 mg/dL; Potassium 4.3 mmol/L (3.3-5.1); Triglycerides 183 mg/dL; Very Low Density Lipoprotein 37 mg/dL (5-40); cholesterol:hdl ratio screen 3.53
[2025-07-19 17:12] LABS: Red Blood Cells-Urine 0-5 SEEN /hpf (0-5); Transitional Epithelial - Ur 0-5 SEEN /hpf (0-5)
[2025-07-19 17:13] LABS: Squamous Epithelial Cells - UA 5-10 SEEN /hpf (5-10)
== END | disposition home or self-care (01) ==
LOC: CIMLAB 11:16
PROVIDERS: PCP Internal Medicine; Referring Provider Internal Medicine; Visit Provider Internal Medicine
DX: I10 Essential (primary) hypertension (principal); R73.09 Other abnormal glucose; E78.00 Pure hypercholesterolemia, unspecified
CPT/HCPCS: 36415; 80053; 80061; 81001; 82043; 82570; 84443; 85025